=== PATIENT | female | born 1975 | race Caucasian/White ===

== ENCOUNTER 2022-10-31 23:33 | Emergency (ER) | payer MEDICARE, MEDICAID, SELFPAY ==
--- NOTE | 2022-10-31 23:54 | PC.NURSE ---
spoke with isiah about why the pt was refused and brought to . Pt was medicated for transport to [facility] and was sleepy. [facility] reports that pt was too sleepy to due the intake eval and that the dept was closed. pt arrived at 2345 approx. at . pt was arrousable but sleepy. pt is on a section 12 and was brought to the pod. isiah is refusing pt from [facility].
[2022-10-31 23:55] VITALS: BP 119/92; PULSE 87; RESP 17; TEMP 36.4; O2SAT 95; BMI 33.3
--- OUTSIDE RECORDS SUMMARY | 2022-11-01 00:20 | XMS_ITS | Continuity of Care Document ---
Author Name Unknown Organization [facility] Address [address] [place] [address]- Care Team Providers Care Analytical Laboratory Technician Name Role Phone Daily GARCIA, Leeann Beltran Primary Care Physician [phone] Encounter [facility] [place] Date(s): 06/18/20 - 06/25/20 [facility] [address] [place] [address]- Attending Physician: Brenda Bear DO Admitting Physician: Brenda Bear DO Allergies, Adverse Reactions, Alerts Substance Reaction Severity Status haloperidol Active hydrOXYzine Active tramadol Active Singulair Active Risperdal Active Imitrex Moderate Active Latex Active Seafood Throat, Hands, Feet swell Persistent Candice re Active Cymbalta Active ZyPREXA 1 Active 1Pt states it gives her a paradoxical reaction. Not true allergy Immunizations Given and Recorded Vaccine Date Status Refusal Reason influenza virus vaccine, inactivated 12/24/11 Give n influenza virus vaccine, inactivated 1 04/12/08 Gi jacobo pneumococcal 23-valent vaccine 12/16/08 Given tetanus-diphtheria toxoids (Td) 10/23/07 Given 1Result Comment: (l) [id number] (0) [id number] Medications albuterol CFC free 90 mcg/inh inhalation aerosol 180 mcg, 2, puffs, Inhalation, Every 4 hours, PRN, Refills 0, Maintenance, 12/13/18 10:52:33 EST, Inhaler Start Date: 12/13/18 Status: Ordered budesonide 1 mg/2 mL inhalation suspension 2 mL = 1 mg, Neb, 2 times a day, # 60 mL, 0 Refills, Maintenance, 10/08/19 15:39:00 EDT, Suspension Start Date: 10/08/19 Status: Ordered Depo-Provera = 150 mg, Intramuscular, 0 Refills, Maintenance, 02/15/19 11:49:00 EST Start Date: 02/15/19 Status: Ordered levocetirizine 5 mg oral tablet 1 tablet = 5 mg, By Mouth, Daily at bedtime, 0 Refills, Maintenance, 12/01/18 13:35:45 EDT Start Date: 12/01/18 Status: Ordered metoprolol 50 mg oral tablet 50 mg, 1, tablet, By Mouth, 2 times a day, # 180 tablet, Refills 0, Maintenance, 06/09/19 22:08:00 EDT Start Date: 06/09/19 Status: Ordered Omeprazole = 20 mg, By Mouth, 2 times a day, 0 Refills, Maintenance, 10/10/18 22:49:16 EDT Start Date: 10/10/18 Status: Ordered Zofran 8 mg oral tablet 1 tablet = 8 mg, By Mouth, Every 8 hours, PRN as needed for nausea/vomiting, 0 Refills, Maintenance, 06/09/19 22:10:00 EDT, Tablet Start Date: 06/09/19 Status: Ordered Zyrtec 10 mg oral tablet 1 tablet = 10 mg, By Mouth, Daily, # 30 tablet, 0 Refills, Maintenance, 07/29/14 15:14:46, Tablet Start Date: 07/29/14 Status: Ordered Problem List Condition Effective Dates Status Health Status Inform ant Anemia(Confirmed) Active Bipolar 1 disorder(Confirmed) 1 Active Dysuria(Confirmed) Active GERD (gastroesophageal reflu x disease)(Confirmed) Active Migraine aura without headache(Confirmed) Active Pituitary adenoma(Confirmed) Active PTSD (post-traumatic stress disorder)(Confirmed) Active Spina bifida, closed(Confirmed) Active UTI (urinary tract infection)(Confirmed) Active 1TOLERATES DROPERIDOL Vital Signs Most recent to oldest [Reference Range]: 1 Height 155 cm (06/18/20 2:34 PM) Weight 87.54 kg (06/18/20 2:34 PM) Body Mass Index [18.5-24.99] 36.44 *>HHI* (06/18/20 2:34 PM) Weight Obtained Via Patient/family state d (06/18/20 2:34 PM) Social History Social History Type Response Smoking Status Current every day frank pruitt entered on: 04/09/17 Sex
--- OUTSIDE RECORDS SUMMARY | 2022-11-01 00:20 | XMS_ITS | Continuity of Care Document ---
Author Name Unknown Organization [facility] Address [address] [place] [address] [address], [address] [place] [address]- Care Team Providers Care Stock Patcher Name Role Phone Daily GARCIA, Leeann Beltran Primary Care Physician [phone] Encounter [facility] [place] Date(s): 02/06/20 - 03/21/20 [facility] [address] [place] [address], [address] [place] [address]- Attending Physician: Alecia GARCIA, Gustavo Avendano Referring Physician: James Dominguez MD Allergies, Adverse Reactions, Alerts Substance Reaction Severity Status Singulair Active Latex Active haloperidol Active hydrOXYzine Active tramadol Active Risperdal Active Imitrex Moderate Active Seafood Throat, Hands, Feet swell Persistent Candice re Active Cymbalta Active ZyPREXA 1 Active 1Pt states it gives her a paradoxical reaction. Not true allergy Immunizations Given and Recorded Vaccine Date Status Refusal Reason influenza virus vaccine, inactivated 12/24/11 Give n influenza virus vaccine, inactivated 1 04/12/08 Gi jacobo pneumococcal 23-valent vaccine 12/16/08 Given tetanus-diphtheria toxoids (Td) 10/23/07 Given 1Result Comment: (l) [id number] (1) [id number] Medications albuterol CFC free 90 mcg/inh inhalation aerosol 180 mcg, 2, puffs, Inhalation, Every 4 hours, PRN, Refills 0, Maintenance, 12/13/18 10:52:33 EST, Inhaler Start Date: 12/13/18 Status: Ordered amphetamine-dextroamphetamine 15 mg oral capsule, extended release 1 capsule = 15 mg, By Mouth, Daily in AM, 0 Refills, Maintenance, 10/08/19 15:37:00 EDT, ER Capsule Start Date: 10/08/19 Status: Ordered atomoxetine 18 mg oral capsule 1 capsule = 18 mg, By Mouth, Daily in AM, 0 Refills, Maintenance, 12/01/18 0:38:40 EDT Start Date: 12/01/18 Status: Ordered budesonide 1 mg/2 mL inhalation suspension 2 mL = 1 mg, Neb, 2 times a day, # 60 mL, 0 Refills, Maintenance, 10/08/19 15:39:00 EDT, Suspension Start Date: 10/08/19 Status: Ordered buprenorphine 10 mcg/hr transdermal film, extended release 1 patch, Topically, apply to clean, dry, intact skin, every 7 days, 0 Refills, Maintenance, 10/08/19 14:54:00 EDT Start Date: 10/08/19 Stop Date: 10/15/19 Status: Ordered clobetasol 0.05% topical ointment 1 application, Topically, Daily, # 60 Gm, 0 Refills, Maintenance, 02/15/19 12:15:00 EST, Ointment, [facility] [address], 1 application Topically Daily, 164, cm, 02/15/19 11:42:00 EST, Height, 75, kg, 12/21/18 20:22:00 EST, Dry Weight Start Date: 02/15/19 Status: Ordered Depo-Provera = 150 mg, Intramuscular, 0 Refills, Maintenance, 02/15/19 11:49:00 EST Start Date: 02/15/19 Status: Ordered doxazosin 1 mg oral tablet 3 mg, 3, tablet, By Mouth, Daily, # 90 tablet, Refills 0, Tot. Refills 0, Maintenance, 12/13/18 10:53:39 EST, Route to Pharmacy Electronically, [id number], [facility] [address] Start Date: 12/13/18 Status: Ordered EpiPen 2-Jerome = 0.3 mg, Intramuscular, Once, 0 Refills, Maintenance, 03/16/19 9:00:00 EST Start Date: 03/16/19 Status: Ordered gabapentin 100 mg oral capsule 100 mg, 1, capsule, By Mouth, Daily, Refills 0, Maintenance, 10/08/19 15:38:00 EDT Start Date: 10/08/19 Status: Ordered levocetirizine 5 mg oral tablet 1 tablet = 5 mg, By Mouth, Daily at bedtime, 0 Refills, Maintenance, 12/01/18 13:35:45 EDT Start Date: 12/01/18 Status: Ordered lidocaine 5% topical ointment 1 application, Topically, 3 times a day, mix 50% with bacitracin., # 50 Gm, 0 Refills, Maintenance,02/15/19 12:13:00 EST, Ointment, [facility] [address], 1 application Topically 3 times a day,Instr:mix 50% with bacitracin., 164, cm, 02/15/19 11:42:... Start Date: 02/15/19 Status: Ordered magnesium oxide 500 mg oral tablet 1 tablet = 500 mg, By Mouth, Daily, 0 Refills, Maintenance, 10/05/17 15:20:57 EDT Start Date: 10/05/17 Status: Ordered metoprolol 50 mg oral tablet 50 mg, 1, tablet, By Mouth, 2 times a day, # 180 tablet, Refills 0, Maintenance, 06/09/19 22:08:00 EDT Start Date: 06/09/19 Status: Ordered mirtazapine 15 mg oral tablet 1 tablet = 15 mg, By Mouth, Daily at supper, 0 Refills, Maintenance, 10/08/19 14:52:00 EDT Start Date: 10/08/19 Status: Ordered Nicorette 4 mg oral transmucosal gum 1 piece, Every 2 hours, 0 Refills, Maintenance, 10/05/17 15:21:20 EDT Start Date: 10/05/17 Status: Ordered Omeprazole = 20 mg, By Mouth, 2 times a day, 0 Refills, Maintenance, 10/10/18 22:49:16 EDT Start Date: 10/10/18 Status: Ordered oxyCODONE 5 mg oral capsule 1 capsule = 5 mg, By Mouth, 3 times a day, 0 Refills, Maintenance, 11/30/18 17:18:40 EDT, Partial fill upon patient request Start Date: 11/30/18 Status: Ordered salicylic acid 2% topical gel See Instructions, Mix a small amount in clobetasol gradually increasing up to 50%. Do not apply to open lesions., # 15 Gm, 0 Refills, Maintenance, 02/15/19 12:15:00 EST, [facility] [address], Mix asmall amount in clobetasol gradually increasing up... Start Date: 02/15/19 Status: Ordered Topamax 100 mg oral tablet 1 tablet = 100 mg, By Mouth, Daily, 0 Refills, Maintenance, 12/01/18 13:36:35 EDT Start Date: 12/01/18 Status: Ordered Vitamin B2 100 mg oral tablet 4 tablets, By Mouth, Daily, 0 Refills, Maintenance, 06/09/19 22:11:00 EDT Start Date: 06/09/19 Status: Ordered Zofran 8 mg oral tablet [...] UTI (urinary tract infection)(Confirmed) Active 1TOLERATES DROPERIDOL Social History Social History Type Response Smoking Status Current every day frank pruitt entered on: 04/09/17 Sex
--- OUTSIDE RECORDS SUMMARY | 2022-11-01 00:20 | XMS_ITS | Continuity of Care Document ---
Author Name Unknown Organization [facility] Address [address] [place] [address]- Care Team Providers Care Plunger Machine Operator Name Role Phone Daily GARCIA, Leeann Beltran Primary Care Physician Encounter [facility] [place] Date(s): 03/16/19 - 03/23/[address] [address]- Attending Physician: Brenda Bear DO Admitting Physician: Brenda Bear DO Allergies, Adverse Reactions, Alerts Substance Reaction Severity Status haloperidol Active hydrOXYzine Active tramadol Active Singulair Active Risperdal Active Imitrex Moderate Active Latex Active Seafood Throat, Hands, Feet swell Persistent Candice re Active Cymbalta Active ZyPREXA Active Immunizations Given and Recorded Vaccine Date Status Refusal Reason influenza virus vaccine, inactivated 12/24/11 Give n influenza virus vaccine, inactivated 1 04/12/08 Gi jacobo pneumococcal 23-valent vaccine 12/16/08 Given tetanus-diphtheria toxoids (Td) 10/23/07 Given 1Result Comment: (l) [id number] Medications albuterol CFC free 90 mcg/inh inhalation aerosol 180 mcg, 2, puffs, Inhalation, Every 4 hours, PRN, Refills 0, Maintenance, 12/13/18 10:52:33 EST, Inhaler Start Date: 12/13/18 Status: Ordered atomoxetine 18 mg oral capsule 1 capsule = 18 mg, By Mouth, Daily in AM, 0 Refills, Maintenance, 12/01/18 0:38:40 EDT Start Date: 12/01/18 Status: Ordered clobetasol 0.05% topical ointment 1 application, Topically, Daily, # 60 Gm, 0 Refills, Maintenance, 02/15/19 12:15:00 EST, Ointment, [facility] [address], 1 application Topically Daily, 164, cm, 02/15/19 11:42:00 EST, Height, 75, kg, 12/21/18 20:22:00 EST, Dry Weight Start Date: 02/15/19 Status: Ordered Depo-Provera = 400 mg, Intramuscular, 0 Refills, Maintenance, 02/15/19 11:49:00 EST Start Date: 02/15/19 Status: Ordered doxazosin 1 mg oral tablet 3 mg, 3, tablet, By Mouth, Daily, # 90 tablet, Refills 0, Tot. Refills 0, Maintenance, 12/13/18 10:53:39 EST, Route to Pharmacy Electronically, [id number], [facility] [address] Start Date: 12/13/18 Status: Ordered EpiPen 2-Jerome = 0.3 mg, Intramuscular, Once, 0 Refills, Maintenance, 03/16/19 9:00:00 EST Start Date: 03/16/19 Status: Ordered levocetirizine 5 mg oral tablet [...] EDT Start Date: 10/05/17 Status: Ordered metoprolol 25 mg oral tablet 25 mg, 1, tablet, By Mouth, 2 times a day, # 60 tablet, Refills 0, Tot. Refills 0, Maintenance, 12/13/18 10:56:49 EST, Route to Pharmacy Electronically, [id number], [facility] [address] Start Date: 12/13/18 Status: Ordered Misc Rx Refills 0, Maintenance, 03/16/19 9:04:00 EST, Compound Start Date: 03/16/19 Status: Ordered Nicorette 4 mg oral transmucosal gum 1 piece, Every 2 hours, 0 Refills, Maintenance, 10/05/17 15:21:20 EDT Start Date: 10/05/17 Status: Ordered Omeprazole = 40 mg, By Mouth, Daily, 0 Refills, Maintenance, 10/10/18 22:49:16 EDT Start [...] Gm, 0 Refills, Maintenance, 02/15/19 12:15:00 EST, [facility] [address], Mix asmall amount in clobetasol gradually increasing up... Start Date: 02/15/19 Status: Ordered Topamax 100 mg oral tablet 1 tablet = 100 mg, By Mouth, Daily, Dose is 1.5 tabs, 0 Refills, Maintenance, 12/01/18 13:36:35 EDT Start Date: 12/01/18 Status: Ordered triamcinolone 0.5% topical ointment 1 application, Topically, 3 times a day, # 430 Gm, 0 Refills, Maintenance, 02/21/19 12:45:00 EST, [facility], [facility] [address], 1 application Topically 3 times a day, 164, cm, 02/15/19 11:42:00 EST, Height, 75, kg, 12/21/18 20:22:00 EST, Dry Weight Start Date: 02/21/19 Status: Ordered Zyrtec 10 mg oral tablet 1 tablet = 10 mg, By Mouth, Daily, # 30 tablet, 0 Refills, Maintenance, 07/29/14 15:14:46, Tablet Start Date: 07/29/14 Status: Ordered Problem List Condition Effective Dates Status Health Status Inform ant Anemia(Confirmed) Active Bipolar 1 disorder(Confirmed) Active Dysuria(Confirmed) Active GERD (gastroesophageal reflu x disease)(Confirmed) Active Migraine aura without headache(Confirmed) Active Pituitary adenoma(Confirmed) Active PTSD (post-traumatic stress disorder)(Confirmed) Active Spina bifida, closed(Confirmed) Active UTI (urinary tract infection)(Confirmed) Active Vital Signs Most recent to oldest [Reference Range]: 1 Height 164 cm (03/16/19 8:59 AM) Blood Pressure [90-138/55-84 mm Hg] 120/ 76mm Hg (03/16/19 8:59 AM) Weight Obtained Via [facility] (03/16/19 8:59 AM) Social History Social History Type Response Smoking Status Current every day frank pruitt entered on: 04/09/17 Sex
--- OUTSIDE RECORDS SUMMARY | 2022-11-01 00:20 | XMS_ITS | Continuity of Care Document ---
Author Name Unknown Organization [facility] Address [address] [place] [address]- Care Team Providers Care Link Fabric Machine Operator Name Role Phone Daily GARCIA, Leeann Beltran Primary Care Physician Encounter [facility] [place] Date(s): 03/15/20 - 04/14/20 [facility] [address] [place] [address]- Allergies, Adverse Reactions, Alerts Substance Reaction Severity [...] toxoids (Td) 10/23/07 Given 1Result Comment: (l) [id number] (0) [id number] Medications albuterol CFC free 90 mcg/inh inhalation [...] 0 Refills, Maintenance, 02/15/19 12:15:00 EST, Ointment, [facility] [address] , 1 application Topically Daily, 164, cm, 02/15/19 [...] 12/13/18 10:53:39 EST, Route to Pharmacy Electronically, [id number], [facility] [address] Start Date: 12/13/18 Status: Ordered EpiPen 2-Jerome [...]
--- OUTSIDE RECORDS SUMMARY | 2022-11-01 00:20 | XMS_ITS | Continuity of Care Document ---
Author Name Unknown Organization [facility] Address [address] [place] [address]- Care Team Providers Care Carving Machine Operator Name Role Phone Leeann Ambrosio MD Primary Care Physician [place] [facility] [place]14[place] - 06/17/[address] [address]- Discharge Disposition: A-D/C Home Attending Physician: Brain Urban MD Admitting Physician: Brain Urban MD Referring Physician: Not on Staff, Referring MD Allergies, Adverse Reactions, Alerts Substance Reaction Severity Status haloperidol Active diphenhydrAMINE Active hydrOXYzine Active Strattera Active Cymbalta Active tramadol Active Risperdal Active trazodone-like drugs Active Singulair Active Imitrex Moderate Active Latex Active Seafood Throat, Hands, Feet swell Persistent Candice re Active Hand Packager 1 Active ZyPREXA 2 Active 1REACTION - FULL BLOWN ASTHMA ATTACK 2Pt states it gives her a paradoxical reaction. Not true allergy Immunizations Given and Recorded Vaccine Date Status Refusal Reason influenza virus vaccine, inactivated 12/24/11 Give n influenza virus vaccine, inactivated 1 04/12/08 Gi jacobo pneumococcal 23-valent vaccine 12/16/08 Given tetanus-diphtheria toxoids (Td) 10/23/07 Given 1Result Comment: (l) [id number] Medications albuterol CFC free 90 mcg/inh inhalation aerosol 180 mcg, 2, puffs, Inhalation, Every 4 hours, PRN, Refills 0, Maintenance, 12/13/18 10:52:33 EST, Inhaler Start Date: 12/13/18 Status: Ordered budesonide 1 mg/2 mL inhalation suspension 2 mL = 1 mg, Neb, 2 times a day, # 60 mL, 0 Refills, Maintenance, 10/08/19 15:39:00 EDT, Suspension Start Date: 10/08/19 Status: Ordered Colace sodium 100 mg oral capsule 100 mg, 1, capsule, By Mouth, 2 times a day, PRN, # 20 capsule, Refills 2, Tot. Refills 2, Maintenance, for constipation, 07/12/20 9:30:00 EDT, Route to Pharmacy Electronically, [facility] [address], Partial fill upon patient request if the prescrip... Start Date: 07/12/20 Status: Ordered Fluconazole 150 mg, By Mouth, Every 48 hours, tablet, Maintenance, 07/30/20 4:43:00 EDT Start Date: 07/30/20 Status: Ordered levocetirizine 5 mg oral tablet 1 tablet = 5 mg, By Mouth, Daily at bedtime, 0 Refills, Maintenance, 12/01/18 13:35:45 EDT Start Date: 12/01/18 Status: Ordered metoprolol 50 mg oral tablet 50 mg, 1, tablet, By Mouth, 2 times a day, # 180 tablet, Refills 0, Maintenance, 06/09/19 22:08:00 EDT Start Date: 06/09/19 Status: Ordered Omeprazole 40, By Mouth, Daily, 0 Refills, Maintenance, 10/10/18 22:49:16 EDT Start Date: 10/10/18 Status: Ordered oxyCODONE 5 mg oral tablet 10 mg, 2, tablet, By Mouth, Every 6 hours, PRN, Refills 0, Tot. Refills 0, Maintenance, as needed for pain, 07/30/20 6:36:00 EDT, Partial fill upon patient request if the prescription is for a schedule II opioid drug. Start Date: 07/30/20 Status: Ordered Topiramate = 100 mg, By Mouth, Daily, 1.5 tabs, 0 Refills, Maintenance, 07/30/20 4:42:00 EDT, Partial fill upon patient request if the prescription is for a schedule II opioid drug. Start Date: 07/30/20 Status: Ordered Zofran 8 mg oral tablet [...] disease)(Confirmed) Active Migraine aura without headache(Confirmed) Active Obese class I(Confirmed) Active Pituitary adenoma(Confirmed) Active PTSD (post-traumatic stress disorder)(Confirmed) Active Spina bifida, closed(Confirmed) Active UTI (urinary tract infection)(Confirmed) Active 1TOLERATES DROPERIDOL Results Radiology Reports * Exam Date Time Procedure Performing Provider Status 06/14/21 8:36 PM Chest Portable Lulu Delong; Auth (Ve rified) Notes: (Chest Portable) Reason For Exam: Shortness of Breath RESULT: Chest Portable Chest Portable Hx of Present Illness: states she does not want to be alive anymore; Reason: Shortness of Breath; Clinical Question(s): CHF COMPARISON: 09/17/2017 FINDINGS: LINES AND TUBES: None. LUNGS AND PLEURA: Clear lungs. Normal pulmonary vascularity. No pleural effusion. No pneumothorax. HEART, MEDIASTINUM AND ROBERTO: Heart is normal in size. Normal upper mediastinal and hilar contour. BONES AND SOFT TISSUES: Old right-sided rib fractures. IMPRESSION: No acute abnormality. WSN: [id number] Ordering Physician: Timothy Johnson Dictated By: Joon Samuels MD Dictated Date/Time: 06/14/21 10:08 p Reviewed By: Joon Samuels MD Signed By: Joon Samuels MD Signed Date/Time: 06/14/21 10:08 pm Transcribed By: BARB Transcribed Date/Time: 06/14/21 10:07 pm Vital Signs Most recent to oldest [Reference Range]: 1 2 3 Height 155 cm (06/17/21 4:50 AM) 155 cm (06/14/21 8:12 PM) Weight 82 kg (06/17/21 4:50 AM) 82 kg (06/14/21 8:12 PM) Oxygen Saturation [94-100 %] 97 % (06/17/21 4:50 AM) 98 % (06/16/21 9:20 AM) 97 % (06/16/21 4:00 AM) Pulse Rate [55-90 bpm] 80 bpm (06/17/21 4:50 AM) 89 bpm (06/16/21 9:20 AM) 84 bpm (06/16/21 4:00 AM) Body Mass Index [18.5-24.99] 34.13 *>HHI* (06/17/21 4:50 AM) Blood Pressure [90-138/55-84 mm Hg] 120/82mm Hg (06/17/21 4:50 AM) 129/78mm Hg (06/16/21 9:20 AM) 142/96mm Hg *H* (06/16/21 4:00 AM) Respiratory Rate [16-30 br/min] 19 br/min (06/17/21 9:07 AM) 18 br/min (06/17/21 4:50 AM) 32 br/min 1 *H* (06/16/21 11:00 PM) Temperature [96.8-100.4 DegF] 98.0 DegF (06/17/21 4:50 AM) 98.2 DegF (06/16/21 9:20 AM) 98.8 DegF (06/16/21 4:00 AM) Mode of Delivery (Oxygen) Room air (06/17/21 4:50 AM) Room air (06/16/21 9:20 AM) Room air (06/16/21 4:00 AM) Blood pressure sites Arm, right (06/17/21 4:50 AM) Arm, left (06/14/21 8:12 PM) Temperature Route Temporal (06/17/21 4:50 AM) Temporal (06/16/21 9:20 AM) Temporal (06/15/21 5:49 PM) Dry Weight 82 kg (06/17/21 4:50 AM) 82 kg (06/14/21 8:12 PM) 1Result Comment: while sleeping Social History Social History Type Response Smoking Status Current every day frank pruitt entered on: 04/09/17 Sex
--- OUTSIDE RECORDS SUMMARY | 2022-11-01 00:20 | XMS_ITS | Continuity of Care Document ---
Author Name Unknown Organization [facility] Address [address] [place] [address]- Care Team Providers Care Bullard Machine Operator Name Role Phone Daily GARCIA, Leeann Beltran Primary Care Physician [phone] [place] [facility] [place] 08/10/20 [facility] [address] [place] [address]- Allergies, Adverse Reactions, Alerts Substance Reaction Severity Status haloperidol Active diphenhydrAMINE Active hydrOXYzine Active tramadol Active trazodone-like drugs Active Singulair Active Risperdal Active Imitrex Moderate Active Latex Active Seafood Throat, Hands, Feet swell Persistent Candice re Active Cymbalta Active Hand Photographer Portrait 1 Active ZyPREXA 2 Active 1REACTION - FULL BLOWN ASTHMA ATTACK 2Pt states it gives her a paradoxical reaction. Not true allergy Immunizations Given and Recorded Vaccine Date Status Refusal Reason influenza virus vaccine, inactivated 12/24/11 Give n influenza virus vaccine, inactivated 1 04/12/08 Gi jacobo pneumococcal 23-valent vaccine 12/16/08 Given tetanus-diphtheria toxoids (Td) 10/23/07 Given 1Result Comment: (l) [id number] (0) [id number] Medications albuterol CFC free 90 mcg/inh inhalation [...] 07/12/20 9:30:00 EDT, Route to Pharmacy Electronically, [facility] [address], Partial fill upon [...]
--- OUTSIDE RECORDS SUMMARY | 2022-11-01 00:20 | XMS_ITS | Continuity of Care Document ---
Author Name Unknown Organization [facility] Address [address] [place] [address] [address], [address] [place] [address]- Care Team Providers Care Hotshot Superintendent Name Role Phone Daily GARCIA, Leeann Beltran Primary Care Physician Encounter [facility] [place] Date(s): 02/06/20 - 03/07/20 [facility] [address] [place] [address], [address] [place] [address]- Allergies, Adverse Reactions, Alerts Substance Reaction Severity [...] toxoids (Td) 10/23/07 Given 1Result Comment: (l) [id number] Medications albuterol CFC free 90 mcg/inh inhalation [...] 0 Refills, Maintenance, 02/15/19 12:15:00 EST, Ointment, [facility] [address] , 1 application [...] 12/13/18 10:53:39 EST, Route to Pharmacy Electronically, [id number], [facility] [address] Start Date: [...] 14:52:00 EDT Start Date: 10/08/19 Status: Ordered Misc Rx Refills 0, Maintenance, 03/16/19 9:04:00 EST, Compound Start Date: 03/16/19 Status: Ordered Miscellaneous Rx 150, 0 Refills, Maintenance, 06/09/19 22:16:00 EDT Start Date: 06/09/19 Status: Ordered Nicorette 4 mg oral transmucosal [...] 0 Refills, Maintenance, 02/21/19 12:45:00 EST, Ointment, [facility] [address], 1 application Topically 3 times a day, 164, cm, 02/15/19 11:42:00 EST, Height, 75, kg, 12/21/18 20:22:00 EST, Dry Weight Start Date: 02/21/19 Status: Ordered Vitamin B2 100 mg oral [...] closed(Confirmed) Active UTI (urinary tract infection)(Confirmed) Active Social History Social History Type Response Smoking Status Current every day frank pruitt entered on: 04/09/17 Sex
--- OUTSIDE RECORDS SUMMARY | 2022-11-01 00:20 | XMS_ITS | Continuity of Care Document ---
Author Name Unknown Organization [facility] Address [address] [place] [address]- Care Team Providers Care [employer] Name Role Phone Leeann Ambrosio MD Primary Care Physician [phone] [place] [facility] [place] - 10/30/[address] [address]- Discharge Disposition: A-D/C Home Attending Physician: Bj Cooney MD Admitting Physician: Bj Cooney MD Referring Physician: Not on Staff, Referring MD Allergies, Adverse Reactions, Alerts Substance Reaction Severity Status ketamine Active hydrOXYzine Active tramadol Active trazodone-like drugs Active Singulair Active Risperdal Active Imitrex Moderate Active Haldol akathesia Active Latex Active Seafood Throat, Hands, Feet swell Persistent Candice re Active Strattera Active Cymbalta Active 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 Not true allergy Immunizations Given and Recorded Vaccine Date Status Refusal Reason influenza virus vaccine, inactivated 12/24/11 Give n influenza virus vaccine, inactivated 1 04/12/08 Gi jacobo pneumococcal 23-valent vaccine 12/16/08 Given tetanus-diphtheria toxoids (Td) 10/23/07 Given 1Result Comment: (l) [id number] (3) [id number] Medications carbidopa-levodopa 25 mg-100 mg oral tablet 1 tablet, 2 times a day, TAKE 1 TABLET BY MOUTH TWICE A DAY Start Date: 10/03/22 Status: Ordered Flovent HFA 220 mcg/inh inhalation aerosol 1 puffs, Inhalation, 2 times a day, # 12 Gm, 0 Refills, Maintenance, 10/03/22 19:49:00 EDT, Aerosol, Partial fill upon patient request if the prescription is for a schedule II opioid drug. Start Date: 10/03/22 Status: Ordered Omeprazole 40, By Mouth, 2 times a day, 0 Refills, Maintenance, 10/10/18 22:49:16 EDT Start Date: 10/10/18 Status: Ordered ondansetron 8 mg oral tablet, disintegrating dissolve 1 tablet ON TONGUE every 8 hours if needed Start Date: 12/25/21 Status: Ordered sucralfate 1 gm oral tablet 1 Gm, 1, tablet, By Mouth, 4 times a day, # 120 tablet, Refills 0, Maintenance, 10/03/22 19:49:00 EDT, Partial fill upon patient request if the prescription is for a schedule II opioid drug. Start Date: 10/03/22 Status: Ordered Zyrtec 10 mg oral tablet 1 tablet = 10 mg, By Mouth, Daily, # 30 tablet, 0 Refills, Maintenance, 07/29/14 15:14:46, Tablet Start Date: 07/29/14 Status: Ordered Problem List Condition Confirmation Course Effective Dates Status Health St atus Informant Anemia Confirmed Active Bipolar 1 disorder 1 Confirmed Active COVID-19 2 Confirmed 03/02/22 Active Dysuria Confirmed Active GERD (gastroesophageal reflux disease) Confirmed Active Migraine aura without headache Confirmed Active Pituitary adenoma Confirmed Active PTSD (post-traumatic stress disorder) Confirmed Active Severe obesity Confirmed Active Spina bifida, closed Confirmed Active UTI (urinary tract infection) Confirmed Active 1TOLERATES DROPERIDOL 2Problem added by Discern Expert Vital Signs Most recent to oldest [Reference Range]: 1 Height 155 cm (10/30/22 8:58 PM) Weight 79 kg (10/30/22 8:58 PM) Oxygen Saturation [94-100 %] 97 % (10/30/22 8:58 PM) Pulse Rate [55-90 bpm] 120 bpm *H* (10/30/22 8:58 PM) Blood Pressure [90-138/55-84 mm Hg] 141/ 96mm Hg *H* (10/30/22 8:58 PM) Respiratory Rate [16-30 br/min] 22 br/mi n (10/30/22 8:58 PM) Temperature [96.8-100.4 DegF] 99.2 DegF (10/30/22 8:58 PM) Mode of Delivery (Oxygen) Room air (10/30/22 8:58 PM) Blood pressure sites Arm, right (10/30/22 8:58 PM) Temperature Route Temporal (10/30/22 8:58 PM) Dry Weight 79 kg (10/30/22 8:58 PM) Social History Social History Type Response Smoking Status Current every day frank pruitt entered on: 04/09/17 Sex Note * Bj Cooney MD: PERFORM, SIGN, VERIFY Event Display: Patient Education Handout Authored Date: * Bj Cooney MD: PERFORM Event Display: Patient Education Leaflets Authored Date: Anxiety??Reaction ?? [id number] Anxiety??Reaction Anxiety is the feeling we all get when we think something bad might happen. It is a normal responseto stress. It most often causes only a mild reaction. But it can interfere with daily life when anxiety is more severe. In some cases, you may not know what you???re anxious about. Anxiety seems to have both mental and physical triggers. You may have stress from home and family. Or work and social relationships. Anxiety tends to run in families. This may mean it???s linked to genes. During an anxiety reaction, you may feel: ??? Helpless ??? Nervous ??? Depressed ??? Grouchy Your body may show signs of anxiety in many ways. You may have: ??? Dry mouth ??? Shakiness ??? Dizziness ??? Weakness ??? Trouble breathing ??? Fast breathing ???Chest pressure ??? Sweating ??? Headache ??? Nausea ??? Diarrhea ??? Tiredness ??? Inability to sleep ??? Sexual problems Home care Try to find those things that set off anxiety in your life. They may not be obvious. They may include: ??? Daily hassles of life. This can include traffic jams, missed appointments, or car troubles. ???Major life changes. This means both good changes, such as a new baby or job promotion. This can also mean tough life changes, such as loss of a job or loss of a loved one. ??? Overload. This means feeling that you have too many responsibilities. And that you can't take care of all of them. ??? Feeling helpless. You may feel you don???t have any control or choices. You may feel that your problems can't be solved. Notice how your body reacts to stress. This will help you take action before the stress sets off anxiety. When you can, make changes to reduce the sources of your stress. But stress in life often can't be prevented. It is important to learn how to manage stress to reduce anxiety. There are many proven methods that will reduce your anxiety. These include: ??? Exercise ??? Good nutrition ??? Getting enough sleep ??? Relaxation methods ??? Breathing exercises ??? Visualization ??? Biofeedback ??? Meditation ??? Counseling ??? Medicine For more information about this, talk with your healthcare provider. Or check online or at your local library or bookstore. You'll find many books and audiobooks on this subject. ?? Follow-up care If you feel your anxiety is not getting better with self-help, call your healthcare provider. Or make an appointment with a counselor. You may need short-term counseling or medicine to help you manage anxiety. ?? Call 911 Call 911 if any of the following occur: ??? Trouble breathing ??? Confusion ??? Drowsiness or trouble waking up ??? Fainting ??? Rapid heart rate ??? Seizure ??? New chest pain that becomes more severe, lasts longer, or spreads into your shoulder, arm, neck, jaw, or back Call or text [phone] if you have thoughts of harming yourself or others. You will be connected to trained crisis counselors at the National Suicide Prevention Lifeline. An online chat option is also available at www.suicidepreventionlifeline.org. You can also call Lifeline at 117-380-XBNB (769-721-4449). Lifeline is free and available 01/09. ?? When to get medical advice Call your healthcare provider right away if any of the following occur: ??? Symptoms that don't improve or get worse, such as feelings of hopelessness or overwhelming sadness ??? Severe headache not eased by rest and mild pain medicine The National Suicide Prevention Lifeline is available at 002-392-LFII (531-602-7361). The Lifeline is available 01/09 and provides free and confidential support. The [employer] also has an online chat at www.suicidepreventionlifeline.org. ?? Last Reviewed Date: 2021 ?? 0189-2780 The [employer]. All rights reserved. This information is not intended as a substitute for professional medical care. Always follow your healthcare professional's instructions. ?? * Bj Cooney MD: PERFORM Event Display: Patient Education Leaflets Authored Date: [id number] Laceration, All Closures ?? [id number] Laceration, All Closures A??laceration is a cut through the skin. This will usually need stitches or megan if it's deep. Minor cuts may be treated with a surgical tape closure or??skin glue. Home care ??? Your healthcare provider may prescribe an antibiotic. This is to help prevent infection. Followall instructions for taking this medicine. Take the medicine every day until it's gone, or you are told to stop. You should not have any left over. ??? The provider may prescribe medicines for pain. If no pain medicines were prescribed, you can use bybd-ptt-weyqdtf pain medicines. Follow instructions for taking any pain medicines. Talk with your provider before using these medicines if you have chronic liver or kidney disease, or ever had a stomach ulcer or digestive bleeding. ??? Follow the provider???s instructions on how to care for the cut. ??? Keep the wound clean and dry. Don't get the wound wet until you are told it's OK to do so.??If the area gets wet, gently pat it dry with a cleancloth. Replace the wet bandage with a dry one. ??? If a bandage was applied and it becomes wet or dirty, replace it. Otherwise, leave it in place for the first 24 hours. ??? Caring for stitches or megan: Once you no longer need to keep them dry, clean the wound daily. First remove the bandage. Then wash the area gently with soap and clean running water, or as directed by the??provider. Use a wet cotton swab to loosen and remove any blood or crust that forms. After cleaning, apply a thin layerof antibiotic ointment if advised. Then put on a new bandage unless you are told not to. ??? Caringfor skin glue: Don???t apply liquid, ointment, or cream on the wound while the glue is in place.??Don't do activities that cause heavy sweating. Protect the wound from sunlight.??Don't scratch, rub, or pick at the adhesive film. Don't place tape directly over the film.??The glue should peel off naturally in 5 to 10 days.? Caring for surgical tape: Keep the area dry. If it gets wet, blot it dry with a clean towel. Surgical tape often falls off in 7 to 10 days. If it has not fallen off after10 days, you can take it off yourself. Put mineral oil or petroleum jelly on a cotton ball and gently rub the tape until it's removed. ??? Once you can get the wound wet, you may shower as normal. Don't soak the wound in water (no tub baths or swimming). ??? Even with correct treatment, a wound infection may sometimes occur. Check the wound daily for signs of infection listed below. Scalp wounds Follow your healthcare provider's specific instructions on showering. During the first 2 days, you may carefully rinse your hair in the shower to remove blood, glass, or dirt particles. After 2 days,you may shower and shampoo your hair normally. Don't soak your scalp in the tub or go swimming until the stitches or megan have been removed. Talk with your healthcare provider before applying any antibiotic ointment to the wound. Mouth wounds Eat soft foods to reduce pain. If the cut is inside your mouth, clean by rinsing after each meal and at bedtime with a mixture of equal parts water and hydrogen peroxide (don't swallow!). Or you can use a cotton swab to directly apply hydrogen peroxide onto the cut. You may also be prescribed a chlorhexidine solution to rinse with. Mouth wounds can be painful when eating. You may use an iano-uto-qifnbmi local numbing solution for pain relief. If this isn't available, you may use any numbing solution intended for teething babies. You may apply this directly to the sores with a cotton-tip swab or with your clean finger. ?? Follow-up care Follow up with your healthcare provider as advised.??Ask your provider how long stitches should be left in place. Be sure to return for stitch removal as directed. If dissolving stitches were used inthe mouth, these should fall out or dissolve without the need for removal. If tape closures were used, remove them yourself when your provider advises if they haven't fallen off on their own. If??skin glue was used, the film will wear off by itself. Generally, you should keep healing wounds out of direct sunlight for the first couple of months to try to lessen scarring. ?? When to get medical advice Call your healthcare provider right away??if any of these occur: ??? Signs of infection, including increasing pain in the wound, increasing wound redness or swelling, or pus or bad odor coming from the wound ??? Fever of??100.4??F (38.??C)??or higher, or as advised by your provider ??? Chills ??? Stitches or megan come apart or fall out, or surgical tape falls off before 7 days and the wound appears to be reopening ??? Wound edges reopen ??? Wound changes colors ??? Numbness around the wound after any numbing medicine should have worn off ??? Decreased movement around the injured area ?? Call 911 Call 911??if you can't control the wound bleeding??with direct pressure. ?? Last Reviewed Date: 2021 ?? 0613-4975 [employer]. All rights reserved. This information is not intended as a substitute for professional medical care. Always follow your healthcare professional's instructions. ?? Patient Care team information Care Team Personnel Name: Leeann Ambrosio MD Position: [facility] Physician - Primary Care Member Role: PCP Address: Address: [address] [place] [address] Name: Geovanna Vu MD Position: [facility] MEDICAL RECEPTIONIST MEDICAL ASSISTANT MD Member Role: [employer] MEDICAL RECEPTIONIST MEDICAL ASSISTANT Physician Address: Address: [address] [place] [address] Name: Saige Lacey RN Position: [facility] RN Member Role: Primary Care Nurse Name: Brenda Bear DO Position: [facility] MEDICAL RECEPTIONIST MEDICAL ASSISTANT MD Member Role: [employer] MEDICAL RECEPTIONIST MEDICAL ASSISTANT Physician Address: Address: [address] [place] [address]- Name: Bj Cooney MD Position: [facility] ED Medicine MD Member Role: Admitting Physician Address: Address: [address] [place] [address]- Name: More Juan RN Position: [facility] ED RN W/OE and Tasks Member Role: Patient Care Provider Care Team Related Persons Name: ANJU PADGETT Address: home [address] [place] [address] Name: SHIRLEY HU Address: home [address] [place] [address]
--- OUTSIDE RECORDS SUMMARY | 2022-11-01 00:21 | XMS_ITS | Continuity of Care Document ---
Author Name Unknown Organization [facility] Address [address] [place] [address]- Care Team Providers Care Clinic Lead Name Role Phone Leeann Ambrosio MD Primary Care Physician Encounter [facility] [place] Date(s): 09/24/21 - 09/24/[address] [address]- Encounter Diagnosis Depression(Final) - 09/24/21 Anxiety(Final) - 09/24/21 Discharge Disposition: A-D/C Home Attending Physician: Eugene Xavier DO Admitting Physician: Eugene Xavier DO Referring Physician: Not on Staff, Referring MD Allergies, Adverse Reactions, Alerts Substance Reaction Severity Status trazodone-like drugs Active Seafood Throat, Hands, Feet swell Persistent Candice re Active diphenhydrAMINE Active hydrOXYzine Active tramadol Active Risperdal Active Singulair Active Imitrex Moderate Active Latex Active Cymbalta Active 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 Not true allergy Immunizations Given and Recorded Vaccine Date Status Refusal Reason influenza virus vaccine, inactivated 12/24/11 Give n influenza virus vaccine, inactivated 1 04/12/08 Gi jacobo pneumococcal 23-valent vaccine 12/16/08 Given tetanus-diphtheria toxoids (Td) 10/23/07 Given 1Result Comment: (l) [id number] (3) [id number] Medications albuterol CFC free 90 mcg/inh inhalation aerosol 180 mcg, 2, puffs, Inhalation, Every 4 hours, PRN, Refills 0, Maintenance, 12/13/18 10:52:33 EST, Inhaler Start Date: 12/13/18 Status: Ordered atomoxetine 10 mg oral capsule 1 capsule = 10 mg, By Mouth, Daily in AM, # 30 capsule, 0 Refills, Maintenance, 07/06/21 9:05:00 EDT, Capsule, Partial fill upon patient request if the prescription is for a schedule II opioid drug. Start Date: 07/06/21 Status: Ordered benztropine 1 mg oral tablet 1 mg, 1, tablet, By Mouth, 2 times a day, # 10 tablet, Refills 1, Tot. Refills 1, Maintenance, 07/11/21 10:01:00 EDT, Route to Pharmacy Electronically, [facility] - [address], Partial fill upon patient request if the prescription is for a schedule II... Start Date: 07/11/21 Stop Date: 07/21/21 Status: Ordered budesonide 1 mg/2 mL inhalation suspension 2 mL = 1 mg, Neb, 2 times a day, # 60 mL, 0 Refills, Maintenance, 10/08/19 15:39:00 EDT, Suspension Start Date: 10/08/19 Status: Ordered carbidopa-levodopa 25 mg-100 mg oral tablet See Instructions, 1/2 tablet by mouth every morning, then 1 tablet daily, 0 Refills, Maintenance, 07/06/21 9:06:00 EDT, Partial fill upon patient request if the prescription is for a schedule II opioid drug. Start Date: 07/06/21 Status: Ordered Colace sodium 100 mg oral capsule 100 mg, 1, capsule, By Mouth, 2 times a day, PRN, # 20 capsule, Refills 2, Tot. Refills 2, Maintenance, for constipation, 07/12/20 9:30:00 EDT, Route to Pharmacy Electronically, [facility] - [address], Partial fill upon patient request if the prescrip... Start Date: 07/12/20 Status: Ordered haloperidol 5 mg oral tablet 5 mg, 1, tablet, By Mouth, 2 times a day, PRN, # 10 tablet, Refills 1, Tot. Refills 1, Maintenance,Agitation, 07/11/21 10:00:00 EDT, Route to Pharmacy Electronically, [facility] - [address], Partialfill upon patient request if the prescription is fo... Start Date: 07/11/21 Stop Date: 07/21/21 Status: Ordered Omeprazole 40, By Mouth, 2 [...] recent to oldest [Reference Range]: 1 2 Height 155 cm (09/24/21 10:13 PM) 155 cm (09/24/21 10:11 PM) Weight 83.8 kg (09/24/21 10:13 PM) 83.8 kg (09/24/21 10:11 PM) Oxygen Saturation [94-100 %] 97 % (09/24/21 10:11 PM) Pulse Rate [55-90 bpm] 98 bpm *H* (09/24/21 10:11 PM) Body Mass Index [18.5-24.99] 34.88 *>HHI* (09/24/21 10:11 PM) Blood Pressure [90-138/55-84 mm Hg] 133/ 94mm Hg (09/24/21 10:11 PM) Respiratory Rate [16-30 br/min] 20 br/mi n (09/24/21 10:11 PM) Temperature [96.8-100.4 DegF] 97.2 DegF (09/24/21 10:11 PM) Blood pressure sites Arm, right (09/24/21 10:11 PM) Temperature Route Temporal (09/24/21 10:11 PM) Dry Weight 83.8 kg (09/24/21 10:13 PM) 83.8 kg (09/24/21 10:11 PM) Social History Social History Type Response Smoking Status Current every day frank pruitt entered on: 04/09/17 Sex
--- OUTSIDE RECORDS SUMMARY | 2022-11-01 00:21 | XMS_ITS | Continuity of Care Document ---
Author Name Unknown Organization [facility] Address [address] [place] [address]- Care Team Providers Care Wood Room Supervisor Name Role Phone Leeann Ambrosio MD Primary Care Physician [phone] Encounter [facility] [place] Date(s): 10/05/21 - 10/06/[address] [address]- Encounter Diagnosis Depression(Final) - 10/06/21 Suicidal ideation(Final) - 10/06/21 Discharge Disposition: A-D/C Home Attending Physician: Kole Garcia DO Admitting Physician: Kole Garcia DO Referring Physician: Not on Staff, Referring MD Allergies, Adverse Reactions, Alerts Substance Reaction Severity Status diphenhydrAMINE Active hydrOXYzine Active tramadol Active trazodone-like drugs Active Singulair Active Risperdal Active Imitrex Moderate Active Haldol akathesia Active Latex Active Seafood Throat, Hands, Feet swell Persistent Candice re Active Strattera Active Cymbalta Active 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 Not true allergy Immunizations Given and Recorded Vaccine Date Status Refusal Reason influenza virus vaccine, inactivated 12/24/11 Give n influenza virus vaccine, inactivated 1 04/12/08 Gi jacobo pneumococcal 23-valent vaccine 12/16/08 Given tetanus-diphtheria toxoids (Td) 10/23/07 Given 1Result Comment: (l) [id number] (3) [id number] Medications albuterol CFC free 90 mcg/inh inhalation [...] opioid drug. Start Date: 07/06/21 Status: Ordered budesonide 1 mg/2 mL inhalation suspension 2 mL = 1 mg, Neb, 2 times a day, # 60 mL, 0 Refills, Maintenance, 10/08/19 15:39:00 EDT, Suspension Start Date: 10/08/19 Status: Ordered carbidopa-levodopa 25 mg-100 mg oral tablet See Instructions, 1 tablet by mouth every morning, then 1 tablet at night, 0 Refills, Maintenance, 07/06/21 9:06:00 EDT, Partial fill upon patient request if the prescription is for a schedule II opioid drug. Start Date: 07/06/21 Status: Ordered Colace sodium 100 mg oral capsule 100 mg, 1, capsule, By Mouth, 2 times a day, PRN, # 20 capsule, Refills 2, Tot. Refills 2, Maintenance, for constipation, 07/12/20 9:30:00 EDT, Route to Pharmacy Electronically, [facility] [address] , Partial fill upon patient request if the prescrip... Start Date: 07/12/20 Status: Ordered lamotrigine 25 mg oral tablet 75 mg, 3, tablet, By Mouth, Daily, Refills 0, Maintenance, 10/06/21 9:52:00 EDT, Partial fill upon patient request if the prescription is for a schedule II opioid drug. Start Date: 10/06/21 Status: Ordered Omeprazole 40, By Mouth, 2 [...] oldest [Reference Range]: 1 Height 155 cm (10/05/21 10:56 PM) Weight 83 kg (10/05/21 10:56 PM) Oxygen Saturation [94-100 %] 98 % (10/05/21 10:56 PM) Pulse Rate [55-90 bpm] 101 bpm *H* (10/05/21 10:56 PM) Blood Pressure [90-138/55-84 mm Hg] 140/ 106mm Hg *H* (10/05/21 10:56 PM) Respiratory Rate [16-30 br/min] 17 br/mi n (10/05/21 10:56 PM) Temperature [96.8-100.4 DegF] 98.3 DegF (10/05/21 10:56 PM) Mode of Delivery (Oxygen) Room air (10/05/21 10:56 PM) Blood pressure sites Arm, right (10/05/21 10:56 PM) Temperature Route Temporal (10/05/21 10:56 PM) Dry Weight 83 kg (10/05/21 10:56 PM) Social History Social History Type Response Smoking Status Current every day frank pruitt entered on: 04/09/17 Sex Care Team Personnel Name: Daily GARCIA, Leeann Beltran Address: [address] [place] [address]
--- OUTSIDE RECORDS SUMMARY | 2022-11-01 00:21 | XMS_ITS | Continuity of Care Document ---
Author Name Unknown Organization [facility] Address [address] [facility], [address], [address] [place] [address]- Care Team Providers Care Commander Internal Affairs Name Role Phone Daily GARCIA, Leeann Beltran Primary Care Physician [phone] Encounter [place] Date(s): 12/27/19 - 01/26/20 [facility] [address], [address], [address] [place] [address]- Attending Physician: Krysta Torres Admitting Physician: AdmtrKrysta Referring Physician: Admtr Ar8 Allergies, Adverse Reactions, Alerts Substance Reaction Severity [...] toxoids (Td) 10/23/07 Given 1Result Comment: (l) [id number] (7) [id number] Medications albuterol CFC free 90 mcg/inh inhalation [...] 12/13/18 10:53:39 EST, Route to Pharmacy Electronically, [id number], [facility] - [address] Start [...]
--- OUTSIDE RECORDS SUMMARY | 2022-11-01 00:21 | XMS_ITS | Continuity of Care Document ---
Author Name Unknown Organization [facility] Address [address] [place] [address]- Care Team Providers Care Fnp Name Role Phone Leeann Ambrosio MD Primary Care Physician [phone] Encounter [facility] [place] Date(s): 04/28/22 - 04/29/[address] [address]- Encounter Diagnosis Violent behavior with restraint use(Final) - 04/29/22 Suicidal ideation(Final) - 04/29/22 Disruptive behavior disorder(Final) - 04/29/22 Bipolar disorder(Final) - 04/29/22 GERD (gastroesophageal reflux disease)(Final) - 04/29/22 PTSD (post-traumatic stress disorder)(Final) - 04/29/22 Discharge Disposition: A-D/C Home Attending Physician: Brain [...] re Active Strattera Active Cymbalta Active [employer] 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 Not true allergy Immunizations Given and Recorded Vaccine Date Status Refusal Reason influenza virus vaccine, inactivated 12/24/11 Give n influenza virus vaccine, inactivated 1 04/12/08 Gi jacobo pneumococcal 23-valent vaccine 12/16/08 Given tetanus-diphtheria toxoids (Td) 10/23/07 Given 1Result Comment: (l) [id number] (3) [id number] Medications albuterol CFC free 90 mcg/inh inhalation aerosol 180 mcg, 2, puffs, Inhalation, Every 4 hours, PRN, Refills 0, Maintenance, 12/13/18 10:52:33 EST, Inhaler Start Date: 12/13/18 Status: Ordered amphetamine-dextroamphetamine 10 mg oral tablet 1 tablet = 10 mg, By Mouth, Daily in AM, 0 Refills, Maintenance, 04/29/22 9:43:00 EDT, Partial fillupon patient request if the prescription is for a schedule II opioid drug. Start Date: 04/29/22 Status: Ordered amphetamine-dextroamphetamine 15 mg oral tablet 1 tablet = 15 mg, By Mouth, 2 times a day, # 28 tablet, 0 Refills, Maintenance, 02/25/22 16:19:00 EST, Tablet, [facility] #[id number], Partial fill upon patient request if the prescription is for a scheduleII opioid drug., 1 tablet By Mouth 2 times a day,x1... Start Date: 02/25/22 Stop Date: 03/11/22 Status: Ordered amphetamine-dextroamphetamine 5 mg oral tablet 1 tablet = 5 mg, By Mouth, Daily before dinner, 0 Refills, Maintenance, 04/29/22 9:43:00 EDT, Partial fill upon patient request if the prescription is for a schedule II opioid drug. Start Date: 04/29/22 Status: Ordered budesonide 1 mg/2 mL inhalation suspension 2 mL = 1 mg, Neb, 2 times a day, PRN Wheezing/Shortness of Breath, # 60 mL, 0 Refills, Maintenance,10/08/19 15:39:00 EDT, Suspension Start Date: 10/08/19 Status: [...] prescrip... Start Date: 07/12/20 Status: Ordered lamotrigine 100 mg oral tablet 100 mg, 1, tablet, By Mouth, 2 times a day, # 60 tablet, Refills 5, Maintenance, 04/29/22 9:26:00 EDT, Partial fill upon patient request if the prescription is for a schedule II opioid drug. Start Date: 04/29/22 Status: Ordered Lidoderm 5% film 1 patch, Topically, Daily, # 7 patch, 0 Refills, Maintenance, 03/01/22 6:53:00 EST, [facility] #[id number], Partial fill upon patient request if the prescription is for a schedule II opioid drug., 1 patch Topically Daily,x7 days, 156, cm, 03/01/22 6:34:00 ES... Start Date: 03/01/22 Stop Date: 03/08/22 Status: Ordered LORazepam 2 mg oral tablet 1 tablet = 2 mg, By Mouth, 3 times a day, PRN for anxiety, 0 Refills, Maintenance, 04/29/22 9:46:00EDT, Tablet, Partial fill upon patient request if the prescription is for a schedule II opioid drug. Start Date: 04/29/22 Status: Ordered Omeprazole 40, By Mouth, 2 times a day, 0 Refills, Maintenance, 10/10/18 22:49:16 EDT Start Date: 10/10/18 Status: Ordered ondansetron 8 mg oral tablet, disintegrating dissolve 1 tablet ON TONGUE every 8 hours if needed Start Date: 12/25/21 Status: Ordered Paxlovid 150 mg-100 mg (150 mg-100 mg Dose) oral tablet See Instructions, Take 300 mg nirmatrelvir (two 150 mg tablet) and 100 mg ritonavir (one 100 mg tablet), taking both tablets together, orally twice daily for 5 days, # 30 tablet, 0 Refills, Maintenance, 03/02/22 14:04:00 EST, [facility] #[id number], Partial... Start Date: 03/02/22 Status: Ordered Zyrtec 10 mg oral tablet [...] Active Migraine aura without headache Confirmed Active Obese class I Confirmed Active Pituitary adenoma Confirmed Active PTSD (post-traumatic stress disorder) Confirmed Active Spina bifida, closed Confirmed Active UTI (urinary tract infection) Confirmed Active 1TOLERATES DROPERIDOL 2Problem added by Discern Expert Vital Signs Most recent to oldest [Reference Range]: 1 Height 155 cm (04/28/22 11:05 PM) Weight 82 kg (04/28/22 11:05 PM) Dry Weight 82 kg (04/28/22 11:05 PM) Social History Social History Type Response Smoking Status Current every day frank pruitt entered on: 04/09/17 Sex Note * Jen Urban MDh: PERFORM Event Display: Patient Education Leaflets Authored Date: Depression ?? [id number] Depression Depression is a very common mental health problem. It's not just a state of being unhappy or sad. It's a true disease. The cause seems to be linked to a change in chemicals that send signals in the brain. These things increase a person???s risk of depression: ??? A family history of depression, alcoholism, or suicide ??? Chronic illness ??? Chronic pain ???Migraine headaches ??? High emotional stress Depression may be easier to see in others. You may have a hard time seeing it in yourself. It can show in many physical and emotional ways. These include: ??? Loss of appetite ??? Overeating ??? Not being able to sleep ??? Sleeping too much ??? A lot of tiredness not linked to physical activity ??? Restlessness or irritability ??? Slowness of movement or speech ??? Feeling sad or withdrawn ??? Loss of interest in things you once enjoyed ??? Trouble??concentrating, remembering,??or making decisions ??? Thoughts of harming or killing yourself, or thoughts that life is not worth living ??? Low self-esteem The treatment for depression may include both medicine and psychotherapy. Antidepressants can ease symptoms. They can also make it easier for you to do daily tasks. Therapy can offer emotional support. It can also help you understand things that may be causing the depression. Home care ??? Ongoing care and support help people manage this disease. Find a healthcare provider and therapist who meet your needs. Get help when you feel like you may be getting ill. ??? Be kind to yourself. Make it a point to do things that you enjoy. This may be gardening, walking in nature, or going to a movie. Reward yourself for small successes. ??? Take care of your body. Eat a balanced diet. Eat foods low in saturated fat. Eat a lot of fruits and vegetables. Exercise at least 3 times a week for 30 minutes. Even mild to moderate exercise like brisk walking can make you feel better. ??? Take medicine as prescribed. Don't stop your medicine or change the dose unless you talk with your healthcare provider. ??? Once you start medicine, expect your symptoms to get better slowly. Depression will lift over time. It doesn't get better right away. Ask your healthcare provider how long it will take for a medicine to start working. ??? Don't share your medicine. Don???t use someone else's medicine. ??? Tell your healthcare providers all the medicines you take. This includes prescription and erju-tns-sxtzesg medicines. It includes vitamins and herbal supplements. Some supplements caninteract with medicines. They can cause dangerous side effects. Ask your pharmacist about medicine interactions when you have questions. ??? Don't make major decisions until you feel better. This incl udes things such as a job change, a divorce, or a marriage. ??? Don't drink alcohol. It can make depression worse. ??? Talk with your family and??trusted friends??about your feelings and thoughts.??Ask them to help you notice behavior changes early. You can then get help and, if needed, your medicine can be changed. ??? Talk with your healthcare provider if you are not getting better. They may change your medicine or have you try another treatment. ?? Follow-up care Follow up with your healthcare provider as advised. ?? Crisis care Call 988 if you have thoughts of harming yourself or others. When you call or text 988, you will beconnected to trained crisis counselors. An online chat option is also available. [employer] is free and available 01/09. 988 counselors will work with 911 to help you get the care you need. Call 988 if you: ??? Have suicidal thoughts, a suicide plan, and a way to carry out the plan ??? Have serious thoughts of hurting someone else ??? Have trouble breathing ??? Are??very confused ??? Feel very drowsy or have??trouble awakening ??? Faint ??? Have new chest pain that becomes more severe, lasts longer, or spreads into your shoulder, arm, neck, jaw, or back ?? When to get medical care Call your healthcare provider right away if any of these happen: ??? Your symptoms get worse ??? You have extreme depression, fear, anxiety, or anger toward yourself or others ??? You feel out of control ??? You feel that you may try to harm yourself or another ??? You hear voices other people don't hear ??? You see things other people don't see ??? You don't sleep or eat for 3 days in a row ??? Friends or family express concern over your behavior and ask you to get help ?? Last Reviewed Date: 2021 ?? 1529-2142 [employer]. All rights reserved. This information is not intended as a substitute for professional medical care. Always follow your healthcare professional's instructions. ?? Patient Care team information Care Team Personnel Name: Leeann Ambrosio MD Position: [facility] Physician (General Medicine) Member Role: PCP Address: Address: [address] [place] [address]- Name: Geovanna Vu MD Position: [facility] RECHARGER Member Role: Lifetime RECHARGER Physician Address: Address: [address] [place] [address]- Name: Saige Lacey RN Position: [facility] RN Member Role: Primary Care Nurse Name: Brenda Bear DO Position: [facility] RECHARGER Member Role: Lifetime RECHARGER Physician Address: Address: [address] [place], [place] [address], [place] [address]- Name: Evelin RN, Chetna Position: [facility] ED RN W/OE and Tasks Member Role: Patient Care Provider Name: Brain Urban MD Position: [facility] ED Medicine MD Member Role: Admitting Physician Address: Address: [address] [place] [address] [place] [address]- Care Team Related Persons Name: ANJU PADGETT Address: home [address] [place] [address] Name: SHIRLEY HU Address: home [address] [place] [address]
--- OUTSIDE RECORDS SUMMARY | 2022-11-01 00:21 | XMS_ITS | Continuity of Care Document ---
Author Name Unknown Organization [facility] Address [address] [place] [address]- Care Team Providers Care Retail Financial Analyst Name Role Phone Daily GARCIA, Leeann Beltran Primary Care Physician Encounter [facility] [place] Date(s): 07/10/20 - 07/11/[address] [address]- Discharge Disposition: A-D/C Home Attending Physician: Madelyn Branch MD Admitting Physician: Brenda Bear DO Referring Physician: Brenda Bear DO Allergies, Adverse Reactions, [...] toxoids (Td) 10/23/07 Given 1Result Comment: (l) [id number] (3 [id number] Medications acetaminophen 500 mg oral tablet 2 tablet = 1,000 mg, By Mouth, Every 6 hours, PRN for pain, # 120 tablet, 0 Refills, Acute 07/24/2114:30:00 EDT, 07/11/20 15:04:00 EDT, Tablet, [facility] - [address], Partial fill upon patient request if the prescription is for a schedule II opioid... Start Date: 07/11/20 Stop Date: 07/24/20 Status: Ordered albuterol CFC free 90 mcg/inh inhalation aerosol 180 mcg, 2, puffs, Inhalation, Every 4 hours, PRN, Refills 0, Maintenance, 12/13/18 10:52:33 EST, Inhaler Start Date: 12/13/18 Status: Ordered budesonide 1 mg/2 mL inhalation suspension 2 mL = 1 mg, Neb, 2 times a day, # 60 mL, 0 Refills, Maintenance, 10/08/19 15:39:00 EDT, Suspension Start Date: 10/08/19 Status: Ordered ibuprofen 800 mg oral tablet 800 mg, 1, tablet, By Mouth, Every 8 hours, # 30 tablet, Refills 0, Tot. Refills 0, Acute 07/21/20 15:04:00 EDT, 07/11/20 15:03:00 EDT, Route to Pharmacy Electronically, [facility] - [address], Partial fill upon patient request if the prescription is... Start Date: 07/11/20 Stop Date: 07/21/20 Status: Ordered levocetirizine 5 mg oral tablet 1 tablet = 5 mg, By Mouth, Daily at bedtime, 0 Refills, Maintenance, 12/01/18 13:35:45 EDT Start Date: 12/01/18 Status: Ordered metoprolol 50 mg oral tablet 50 mg, 1, tablet, By Mouth, 2 times a day, # 180 tablet, Refills 0, Maintenance, 06/09/19 22:08:00 EDT Start Date: 06/09/19 Status: Ordered metoprolol 50 mg oral tablet 50 mg, Tablet, By Mouth, Hold for: HR < 60, BP < 110/60, 07/11/20 9:00:00 EDT Start Date: 07/11/20 Stop Date: 07/11/20 Status: Completed Omeprazole = 20 mg, By Mouth, 2 times a day, 0 Refills, Maintenance, 10/10/18 22:49:16 EDT Start Date: 10/10/18 Status: Ordered oxyCODONE 5 mg oral tablet 10 mg, 2, tablet, By Mouth, Every 6 hours, PRN, # 30 tablet, Refills 0, Tot. Refills 0, Acute 07/16/20 15:30:00 EDT, as needed for pain, 07/11/20 15:03:00 EDT, Route to Pharmacy Electronically, [facility] - [address], Partial fill upon patient request... Start Date: 07/11/20 Stop Date: 07/16/20 Status: Ordered Toradol Inj 30 mg, Injection, IV Push Slowly, 07/11/20 12:01:00 EDT, Stop date 07/11/20 12:01:00 EDT Start Date: 07/11/20 Stop Date: 07/11/20 Status: Completed Tylenol 325 mg oral tablet 975 mg, Tablet, By Mouth, 07/11/20 12:00:00 EDT Start Date: 07/11/20 Stop Date: 07/11/20 Status: Completed Zofran 8 mg oral tablet 1 tablet [...] oldest [Reference Range]: 1 2 3 Height 154 cm (07/11/20 3:45 PM) 154 cm (07/11/20 11:54 AM) 154 cm (07/11/20 7:48 AM) Weight 87.5 kg (07/10/20 5:14 PM) 87.5 kg (07/10/20 5:13 PM) 87.3 kg (07/10/20 11:39 AM) Oxygen Saturation [94-100 %] 98 % (07/11/20 3:45 PM) 98 % (07/11/20 11:54 AM) 96 % (07/11/20 7:48 AM) Pulse Rate [55-90 bpm] 90 bpm (07/11/20 3:45 PM) 52 bpm *L* (07/11/20 11:54 AM) 89 bpm (07/11/20 9:40 AM) Body Mass Index [18.5-24.99] 36.89 *>HHI* (07/10/20 5:13 PM) 36.81 *>HHI* (07/10/20 11:39 AM) Blood Pressure [90-138/55-84 mm Hg] 112/69mm Hg (07/11/20 3:45 PM) 123/73mm Hg (07/11/20 11:54 AM) 114/69mm Hg (07/11/20 9:40 AM) Respiratory Rate [16-30 br/min] 18 br/min (07/11/20 3:45 PM) 18 br/min (07/11/20 1:39 PM) 18 br/min (07/11/20 1:08 PM) Temperature [96.8-100.4 DegF] 98.0 DegF (07/11/20 3:45 PM) 98.3 DegF (07/11/20 11:54 AM) 98.1 DegF (07/11/20 7:48 AM) Liters per Minute 2 L/min (07/10/20 4:30 PM) 2 L/min (07/10/20 4:15 PM) 2 L/min (07/10/20 4:00 PM) Mode of Delivery (Oxygen) Room air (07/11/20 3:45 PM) Room air (07/11/20 11:54 AM) Room air (07/11/20 7:48 AM) Blood pressure sites Arm, right (07/11/20 3:45 PM) Arm, right (07/11/20 11:54 AM) Arm, right (07/11/20 7:48 AM) Temperature Route Oral (07/11/20 3:45 PM) Oral (07/11/20 11:54 AM) Oral (07/11/20 7:48 AM) Dry Weight 87.3 kg (07/10/20 11:39 AM) Weight Obtained Via Bed scale (07/10/20 5:14 PM) Bed scale (07/10/20 5:13 PM) Standing scale (07/10/20 11:39 AM) Dry Weight Obtained Via Standing scale (07/10/20 11:39 AM) Social History Social History Type Response Smoking Status Current every day frank pruitt entered on: 04/09/17 Sex
--- OUTSIDE RECORDS SUMMARY | 2022-11-01 00:21 | XMS_ITS | Continuity of Care Document ---
Author Name Unknown Organization [facility] Address [address] [place] [address]- Care Team Providers Care Switchboard Operator Supervisor Name Role Phone Leeann Ambrosio MD Primary Care Physician Encounter [facility] [place] Date(s): 09/30/22 - 10/01/[address] [address]- Encounter Diagnosis Depression(Final) - 10/01/22 Discharge Disposition: A-D/C Home Attending Physician: Nba Bear DO Admitting Physician: Nba Bear DO Referring Physician: Not on Staff, Referring MD Allergies, Adverse Reactions, Alerts Substance Reaction Severity Status trazodone-like drugs Active Imitrex Moderate Active ketamine Active hydrOXYzine Active tramadol Active Risperdal Active Singulair Active Haldol akathesia Active Latex Active Seafood Throat, Hands, Feet swell Persistent Candice re Active Strattera Active Cymbalta Active Hand Mitten Stitcher 1 Active ZyPREXA 2 Active Paxlovid Severe Active 1REACTION - FULL BLOWN ASTHMA ATTACK 2Pt states it gives her a paradoxical reaction. Not true allergy Immunizations Given and Recorded Vaccine Date Status Refusal Reason influenza virus vaccine, inactivated 12/24/11 Give n influenza virus vaccine, inactivated 1 04/12/08 Gi jacobo pneumococcal 23-valent vaccine 12/16/08 Given tetanus-diphtheria toxoids (Td) 10/23/07 Given 1Result Comment: (l) [id number] (3) [id number] Medications Omeprazole 40, By Mouth, 2 times a day, 0 Refills, Maintenance, 10/10/18 22:49:16 EDT Start Date: 10/10/18 Status: Ordered ondansetron 8 mg oral tablet, disintegrating dissolve 1 tablet ON TONGUE every 8 hours if needed Start Date: 12/25/21 Status: Ordered Zyrtec 10 mg oral tablet [...] (post-traumatic stress disorder) Confirmed Active Severe obesity (BMI 35.0-39.9) with comorbidity Confirmed Active Spina bifida, closed Confirmed Active UTI (urinary tract infection) Confirmed Active 1TOLERATES DROPERIDOL 2Problem added by Discern Expert Vital Signs Most recent to oldest [Reference Range]: 1 2 Height 149 cm (10/01/22 8:58 AM) 149 cm (09/30/22 8:26 PM) Weight 86 kg (10/01/22 8:58 AM) 86 kg (09/30/22 8:26 PM) Dry Weight 86 kg (10/01/22 8:58 AM) 86 kg (09/30/22 8:26 PM) Social History Social History Type Response Smoking Status Current every day frank pruitt entered on: 04/09/17 Sex Patient Care team information Care Team Personnel Name: Leeann Ambrosio MD Position: [facility] Physician - Primary Care Member Role: PCP Address: Address: [address] [place] [address] Name: Geovanna Vu MD Position: [facility] SILO WORKER MD Member Role: Lifetime SILO WORKER Physician Address: Address: [address] [place] [address] Name: Saige Lacey RN Position: [facility] RN Member Role: Primary Care Nurse Name: Brenda Bear DO Position: [facility] SILO WORKER MD Member Role: Lifetime SILO WORKER Physician Address: Address: [address] [place], [place] [address] [address] Name: Donya Herrera RN Position: [facility] ED RN W/OE and Tasks Member Role: Patient Care Provider Name: Nba Bear DO Position: [facility] Resident Member Role: Admitting Physician Address: Address: [address] [place] [address] Dept [place] [address]- [place] Care Team Related Persons Name: ANJU PADGETT Address: home [address] [place] [address] Name: SHIRLEY HU Address: [place] [address]
--- OUTSIDE RECORDS SUMMARY | 2022-11-01 00:21 | XMS_ITS | Continuity of Care Document ---
Author Name Unknown Organization [facility] Address [address] [facility], [address] Floor, [address] [place] [address]- Care Team Providers Care Visual Stylist Name Role Phone Daily GARCIA, Leeann Beltran Primary Care Physician Encounter [facility] [place] Date(s): 09/18/20 - 09/25/20 [facility] [address] [place], [address], [address] [place], [place] [address] Attending Physician: Roxanne Chauhan DNP Allergies, Adverse Reactions, Alerts Substance Reaction Severity Status haloperidol Active diphenhydrAMINE Active hydrOXYzine Active tramadol Active trazodone-like drugs Active Singulair Active Risperdal Active Imitrex Moderate Active Latex Active Seafood Throat, Hands, Feet swell Persistent Candice re Active Cymbalta Active Hand Burn Out Tender Lace 1 Active ZyPREXA 2 Active 1REACTION - FULL BLOWN ASTHMA ATTACK 2Pt states it gives her a paradoxical reaction. Not true allergy Immunizations Given and Recorded Vaccine Date Status Refusal Reason influenza virus vaccine, inactivated 12/24/11 Give n influenza virus vaccine, inactivated 1 04/12/08 Gi jacobo pneumococcal 23-valent vaccine 12/16/08 Given tetanus-diphtheria toxoids (Td) 10/23/07 Given 1Result Comment: (l) [id number] (0) [id number] Medications albuterol CFC free 90 mcg/inh inhalation [...]
--- OUTSIDE RECORDS SUMMARY | 2022-11-01 00:21 | XMS_ITS | Continuity of Care Document ---
Author Name Unknown Organization [facility] Address [address] [place] [address]- Care Team Providers Care Director Media Name Role Phone Leeann Ambrosio MD Primary Care Physician [phone] [place] [facility] [place] - 07/08/[address] [address]- Encounter Diagnosis Depression(Final) - 07/06/21 Discharge Disposition: A-D/C Home Attending Physician: Olena Flaherty MD Admitting Physician: Olena Flaherty MD Referring Physician: Not on Staff, Referring MD Allergies, Adverse Reactions, Alerts Substance Reaction Severity Status diphenhydrAMINE Active hydrOXYzine Active tramadol Active trazodone-like drugs Active Singulair Active Risperdal Active Imitrex Moderate Active Latex Active Seafood Throat, Hands, Feet swell Persistent Candice re Active Strattera Active Cymbalta Active Hand Wood Stainer 1 Active ZyPREXA 2 Active 1REACTION - FULL BLOWN ASTHMA ATTACK 2Pt states it gives her a paradoxical reaction. Not true allergy Immunizations Given and Recorded Vaccine Date Status Refusal Reason influenza virus vaccine, inactivated 12/24/11 Give n influenza virus vaccine, inactivated 1 04/12/08 Gi jacobo pneumococcal 23-valent vaccine 12/16/08 Given tetanus-diphtheria toxoids (Td) 10/23/07 Given 1Result Comment: (l) [id number] (3) [id number] Medications albuterol CFC free 90 mcg/inh inhalation [...] the prescrip... Start Date: 07/12/20 Status: Ordered Omeprazole 40, By Mouth, 2 [...] Range]: 1 2 3 Height 155 cm (07/08/21 10:00 AM) 155 cm (07/08/21 8:00 AM) 155 cm (07/07/21 1:05 PM) Weight 82 kg (07/08/21 10:00 AM) 82 kg (07/08/21 8:00 AM) 82 kg (07/07/21 1:05 PM) Oxygen Saturation [94-100 %] 99 % (07/08/21 8:00 AM) 97 % (07/08/21 12:00 AM) 97 % (07/07/21 6:12 PM) Pulse Rate [55-90 bpm] 108 bpm *H* (07/08/21 8:00 AM) 112 bpm *H* (07/08/21 12:00 AM) 97 bpm *H* (07/07/21 6:12 PM) Body Mass Index [18.5-24.99] 34.13 *>HHI* (07/08/21 8:00 AM) 34.13 *>HHI* (07/07/21 1:05 PM) 34.13 *>HHI* (07/07/21 5:02 AM) Blood Pressure [90-138/55-84 mm Hg] 115/96mm Hg (07/08/21 8:00 AM) 124/86mm Hg (07/08/21 12:00 AM) 121/79mm Hg (07/07/21 6:12 PM) Respiratory Rate [16-30 br/min] 20 br/min (07/08/21 8:00 AM) 22 br/min (07/08/21 12:00 AM) 20 br/min (07/07/21 6:12 PM) Temperature [96.8-100.4 DegF] 98.3 DegF (07/08/21 8:00 AM) 98.6 DegF (07/08/21 12:00 AM) 98.7 DegF (07/07/21 6:12 PM) Mode of Delivery (Oxygen) Room air (07/08/21 8:00 AM) Room air (07/08/21 12:00 AM) Room air (07/07/21 6:12 PM) Blood pressure sites Arm, right (07/08/21 8:00 AM) Arm, left (07/08/21 12:00 AM) Arm, left (07/07/21 6:12 PM) Temperature Route Temporal (07/08/21 8:00 AM) Temporal (07/08/21 12:00 AM) Temporal (07/07/21 6:12 PM) Dry Weight 82 kg (07/08/21 10:00 AM) 82 kg (07/08/21 8:00 AM) 82 kg (07/07/21 1:05 PM) Social History Social History Type Response Smoking Status Current every day frank pruitt entered on: 04/09/17 Sex
--- OUTSIDE RECORDS SUMMARY | 2022-11-01 00:21 | XMS_ITS | Continuity of Care Document ---
Author Name Unknown Organization [facility] Address [address] [place] [address]- Care Team Providers Care Gas Station Manager Name Role Phone Leeann Ambrosio MD Primary Care Physician [place] [facility] [place] - 07/19/[address] [address]- Discharge Disposition: A-D/C Home Attending Physician: Olena Flaherty MD Admitting Physician: Olena Flaherty MD Referring Physician: Not on Staff, Referring MD Allergies, Adverse Reactions, Alerts Substance Reaction Severity Status trazodone-like drugs Active ketamine Active hydrOXYzine Active tramadol Active Risperdal Active Singulair Active Imitrex Moderate Active Haldol akathesia Active Latex Active Cymbalta Active Seafood Throat, Hands, Feet swell Persistent Candice re Active Strattera Active 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 Not true allergy Immunizations Given and Recorded Vaccine Date Status Refusal Reason influenza virus vaccine, inactivated 12/24/11 Give n influenza virus vaccine, inactivated 1 04/12/08 Gi jacobo pneumococcal 23-valent vaccine 12/16/08 Given tetanus-diphtheria toxoids (Td) 10/23/07 Given 1Result Comment: (l) [id number] (3) [id number] Medications Omeprazole 40, By Mouth, 2 times [...] Range]: 1 2 3 Height 155 cm (07/19/22 12:02 PM) 155 cm (07/19/22 12:01 AM) 155 cm (07/18/22 9:45 PM) Weight 86.5 kg (07/19/22 12:02 PM) 86.5 kg (07/19/22 12:01 AM) 86.5 kg (07/18/22 9:45 PM) Oxygen Saturation [94-100 %] 96 % (07/19/22 12:02 PM) 95 % (07/19/22 12:01 AM) 97 % (07/18/22 9:36 PM) Pulse Rate [55-90 bpm] 89 bpm (07/19/22 12:02 PM) 96 bpm *H* (07/19/22 12:01 AM) 129 bpm *H* (07/18/22 9:36 PM) Body Mass Index [18.5-24.99 kg/m2] 36 kg/m2 *>HHI* (07/19/22 12:02 PM) 36 kg/m2 *>HHI* (07/19/22 12:01 AM) Blood Pressure [90-138/55-84 mm Hg] 128/94mm Hg (07/19/22 12:02 PM) 107/78mm Hg (07/19/22 12:01 AM) 143/89mm Hg *H* (07/18/22 9:36 PM) Respiratory Rate [16-30 br/min] 18 br/min (07/19/22 12:02 PM) 17 br/min (07/19/22 6:15 AM) 18 br/min (07/19/22 3:54 AM) Temperature [96.8-100.4 DegF] 97.7 DegF (07/19/22 12:01 AM) 98.1 DegF (07/18/22 9:36 PM) Mode of Delivery (Oxygen) Room air (07/19/22 12:02 PM) Room air (07/19/22 12:01 AM) Blood pressure sites Arm, right (07/19/22 12:02 PM) Arm, right (07/19/22 12:01 AM) Arm, right (07/18/22 9:36 PM) Temperature Route Temporal (07/19/22 12:01 AM) Dry Weight 86.5 kg (07/19/22 12:02 PM) 86.5 kg (07/19/22 12:01 AM) 86.5 kg (07/18/22 9:45 PM) Social History Social History Type Response Smoking Status Current every day frank sonal entered on: 04/09/17 Sex Note * Krystina GARCIA, Olena Flynn: PERFORM Event Display: Patient Education Leaflets Authored Date: Intentional Overdose, Psych Evaluation??(Adult) ?? [id number] Intentional Overdose, Psych Evaluation??(Adult) You have been evaluated and treated for taking a drug or chemical product with the intent to harm yourself. There is no sign of a toxic effect at this time. It's not likely that you will have any newsymptoms. To be safe, watch for new symptoms during the next 24 hours (see below). Symptoms will depend on the type of drug or chemical you took. An intentional overdose is likely a sign that you are depressed. Or you may be very angry with yourself or someone else. For this reason, you have received a psychiatric (psych) evaluation. It's very important for you to follow the instructions in this evaluation. Home care ??? If you are being sent home, have someone stay with you. The emotional impact of the overdose may not sink in for a while. ??? Have your friend remove all potential self-harm objects from your home such as drugs or weapons. They should put them in a place that's unknown to you. ??? Find out the suicide prevention hotline numbers, emergency numbers, and your provider numbers. Place them where they can be easily located. Give the phone numbers to your friends and family members. ??? If you were given liquid charcoal, your stools will have a black color for 1 to 2 days. A laxative is often given with charcoal. This speeds the removal of any toxins from the intestines. This may cause diarrhea for up to 24 hours. ??? If you were given charcoal but no laxative, you may become constipated. If that happens, you may take an qtey-dkz-cixhrxi laxative. ?? In an emergency Once you get home, keep a list of emergency numbers near. This includes trusted family members, friends, your healthcare provider, and the National Suicide Prevention Lifeline. Trained crisis counselors at the [facility] are available by calling or texting 102. An online chat option is also availableat www.suicidepreventionlifeline.org. You can also call [employer] at 169-430-WRDL ([phone]). [employer] is free and available 01/09. ?? Follow-up care Follow up with your healthcare provider, or as advised. ??? If you are being sent home, have someone stay with you until you follow up with your healthcareprovider, clinic, or therapist. Do this as soon as possible. ??? If you feel the urge to harm yourself again, call or text 124. You will be connected to trained crisis counselors at the National Suicide Prevention Lifeline. ??? If you were given information about a healthcare provider, therapist, or clinic, follow up with them. ??? If you are being discharged for evaluation right away at a psychiatric facility on a voluntary basis, go directly there with a responsible adult. ??? If you have been placed on a ???72- hour psychiatric hold,?? a ride to a facility will be arranged for you. In the future, if you or someone you know takes something that may be harmful, call the [place] [employer] [facility] at 743-153-6547. There is someone there 24 hours a day. If you call, you will be connected to the poison control center closest to you. ?? Call 911 Call 911 if any of these occur: ??? Intense desire to harm yourself and a way to carry to out ??? Trouble breathing or swallowing, wheezing ??? Severe confusion ??? Extreme drowsiness or trouble waking up ??? Fainting or loss of consciousness ??? Fast heart rate ??? Very slow heart rate ??? Very low or very high blood pressure ??? Vomiting blood or large amounts of blood in stool ??? Seizure ?? When to get medical advice Call your healthcare provider right away if any of these occur: ??? Shakiness ??? Fast breathing (more than 25 breaths per minute) or slow breathing (less than 8 breaths per minute) ??? Shortness of breath ??? Fever of 100.4??F (38??C) or higher, or as directed by your healthcare provider ??? Shaking chills ??? Vomiting or diarrhea for more than 24 hours ??? Belly pain ??? Dizziness or weakness ??? Thoughts of harming yourself again (call or text 988) ?? For more help ??? National Suicide Prevention Lifeline at www.suicidepreventionlifeline.org or 998-385-BYZM (702-694-9542) ??? Substance Abuse and Mental Health Services Administration Helpline at www .samhsa.gov/find-help/national-helpline or 091-639-NMJK (009-957-9410) ??? National [place] on Mental Illness at www.lilliana.org or 722-327-5668 or text LILLIANA to 267182 ??? Mental Health [place] at www.[facility].org or 834-012-6164 ?? Last Reviewed Date: 2021 ?? The [employer]. All rights reserved. This information is not intended as a substitute for professional medical care. Always follow your healthcare professional's instructions. ?? * Krystina GARCIA, Olena Flynn: PERFORM Event Display: Patient Education Leaflets Authored Date: [id number] Depression ?? [id number] Depression Depression is a very common mental [...] medicines you take. This includes prescription and phad-udh-wyiemkz medicines. It includes vitamins and herbal supplements. [...] An online chat option is also available. [employer] is free and available 01/09. 988 counselors will work with [facility] to help you get the care you [...] help ?? Last Reviewed Date: 2021 ?? 6488-3908 The [employer]. All rights reserved. This information is not intended as a substitute for professional medical care. Always follow your healthcare professional's instructions. ?? Patient Care team information Care Team Personnel Name: Leeann Ambrosio MD Position: [facility] Physician - Primary Care Member Role: PCP Address: Address: [address] [place] [address] [address] Name: Geovanna Vu MD Position: [facility] HYDROELECTRIC PLANT ELECTRICAL ENGINEER MD Member Role: [employer] HYDROELECTRIC PLANT ELECTRICAL ENGINEER Physician Address: Address: [address] [place] [address] Name: Saige Lacey RN Position: [facility] RN Member Role: Primary Care Nurse Name: Brenda Bear DO Position: [facility] HYDROELECTRIC PLANT ELECTRICAL ENGINEER MD Member Role: [employer] HYDROELECTRIC PLANT ELECTRICAL ENGINEER Physician Address: Address: [address] [place] [address] Name: Olena Flaherty MD Position: [facility] ED Medicine MD Member Role: Admitting Physician Address: Address: [address] [facility] Emergency Medicine[address] Name: Melissa Walker RN Position: [facility] ED RN W/OE and Tasks Member Role: Patient Care Provider Care Team Related Persons Name: ANJU PADGETT Address: home [address] [place] [address] Name: SHIRLEY HU Address: home [address] [place] [address]
--- OUTSIDE RECORDS SUMMARY | 2022-11-01 00:21 | XMS_ITS | Continuity of Care Document ---
Author Name Unknown Organization [facility] Address [address] [place], [place] [address]andrew castano, [address] [place] [address]- Care Team Providers Care Financial Services Agent Name Role Phone Daily GARCIA, Leeann Beltran Primary Care Physician [phone] [place] [facility] [place]20 [facility] [address] [place] [address], [address] [place] [address]- Allergies, Adverse Reactions, Alerts Substance Reaction Severity [...] toxoids (Td) 10/23/07 Given 1Result Comment: (l) [id number] 3) [id number] Medications albuterol CFC free 90 mcg/inh inhalation [...] 0 Refills, Maintenance, 02/15/19 12:15:00 EST, Ointment, [facility] [address] , [...] 12/13/18 10:53:39 EST, Route to Pharmacy Electronically, [id number], [facility] [address] Start Date: [...]
--- OUTSIDE RECORDS SUMMARY | 2022-11-01 00:21 | XMS_ITS | Continuity of Care Document ---
Author Name Unknown Organization [facility] Address [address], [address], [address] [place] [address]- Care Team Providers Care Radiation Officer Name Role Phone Daily GARCIA, Leeann Beltran Primary Care Physician [phone] Encounter [facility] [place] Date(s): 04/24/20 - 05/01/20 [facility] [address], [address], [address] [place] [address]- Attending Physician: Roxanne Chauhan DNP Allergies, Adverse [...] toxoids (Td) 10/23/07 Given 1Result Comment: (l) [id number] (8) [id number] Medications albuterol CFC free 90 mcg/inh inhalation [...] 12/13/18 10:53:39 EST, Route to Pharmacy Electronically, [id number], [facility] - [address] Start [...]
--- OUTSIDE RECORDS SUMMARY | 2022-11-01 00:21 | XMS_ITS | Continuity of Care Document ---
Author Name Unknown Organization [facility] Address [address] [place] [address]- Care Team Providers Care Joint Runner Name Role Phone Daily GARCIA, Leeann Beltran Primary Care Physician [phone] [place] [facility] [place]/17/20 - 05/17/[address] [facility] [address] [address]- Attending Physician: Krysta Torres Admitting Physician: AdmKrysta lee Referring Physician: AdmtrKrysta Allergies, Adverse Reactions, Alerts Substance Reaction Severity [...] toxoids (Td) 10/23/07 Given 1Result Comment: (l) [id number] 3) [id number] Medications albuterol CFC free 90 mcg/inh inhalation [...] 12/13/18 10:53:39 EST, Route to Pharmacy Electronically, [id number], [facility] - [address] Start [...]
--- OUTSIDE RECORDS SUMMARY | 2022-11-01 00:22 | XMS_ITS | Continuity of Care Document ---
Author Name Unknown Organization [facility] Address [address] [place] [address]- Care Team Providers Care Pin Inserter Name Role Phone Leeann Ambrosio MD Primary Care Physician En[place] [facility] [place] Date(s): 12/20/21 - 12/21/[address] [address]- Encounter Diagnosis Anxiety(Final) - 12/21/21 Discharge Disposition: A-D/C Home Attending Physician: Damaris Goode MD Admitting Physician: Damaris Goode MD Referring Physician: Not on Staff, Referring MD Allergies, Adverse Reactions, Alerts Substance Reaction Severity Status diphenhydrAMINE Active ketamine Active hydrOXYzine Active tramadol Active trazodone-like drugs Active Singulair Active Risperdal Active Imitrex Moderate Active Haldol akathesia Active Latex Active Cymbalta Active Hand Finance Director 1 Active Seafood Throat, Hands, Feet swell Persistent Candice re Active Strattera Active ZyPREXA 2 Active 1REACTION - FULL BLOWN ASTHMA ATTACK 2Pt states it gives her a paradoxical reaction. Not true allergy Immunizations Given and Recorded Vaccine Date Status Refusal Reason influenza virus vaccine, inactivated 12/24/11 Give n influenza virus vaccine, inactivated 1 04/12/08 Gi jacobo pneumococcal 23-valent vaccine 12/16/08 Given tetanus-diphtheria toxoids (Td) 10/23/07 Given 1Result Comment: (l) [id number] (3 [id number] Medications albuterol CFC free 90 mcg/inh inhalation [...] opioid drug. Start Date: 10/06/21 Status: Ordered MorPHINE Inj 4 mg, Injection, Intramuscular, Once, STAT, 12/21/21 7:50:00 EST, Stop date 12/21/21 7:50:00 EST Start Date: 12/21/21 Stop Date: 12/21/21 Status: Completed MorPHINE Inj 2 mg, Injection, IV Push Slowly, Once, Routine, 12/21/21 3:00:00 EST, Stop date 12/21/21 3:00:00 EST Start Date: 12/21/21 Stop Date: 12/21/21 Status: Completed Omeprazole 40, By Mouth, 2 times a [...] Active Bipolar 1 disorder 1 Confirmed Active Dysuria Confirmed Active GERD (gastroesophageal reflux disease) Confirmed Active Migraine aura without headache Confirmed Active Obese class I Confirmed Active Pituitary adenoma Confirmed Active PTSD (post-traumatic stress disorder) Confirmed Active Spina bifida, closed Confirmed Active UTI (urinary tract infection) Confirmed Active 1TOLERATES DROPERIDOL Vital Signs Most recent to oldest [Reference Range]: 1 2 3 Height 155 cm (12/21/21 2:26 AM) 155 cm (12/21/21 12:59 AM) Weight 79.7 kg (12/21/21 2:26 AM) 79.7 kg (12/21/21 12:59 AM) Oxygen Saturation [94-100 %] 95 % (12/21/21 7:41 AM) 93 % *L* (12/21/21 2:26 AM) Pulse Rate [55-90 bpm] 103 bpm *H* (12/21/21 7:41 AM) 101 bpm *H* (12/21/21 2:26 AM) Body Mass Index [18.5-24.99 kg/m2] 33.17 kg/m2 *>HHI* (12/21/21 2:26 AM) Blood Pressure [90-138/55-84 mm Hg] 122/94mm Hg (12/21/21 7:41 AM) 112/92mm Hg (12/21/21 2:26 AM) Respiratory Rate [16-30 br/min] 16 br/min (12/21/21 7:54 AM) 18 br/min (12/21/21 7:41 AM) 16 br/min (12/21/21 6:02 AM) Mode of Delivery (Oxygen) Room air (12/21/21 7:41 AM) room air (12/21/21 2:26 AM) Dry Weight 79.7 kg (12/21/21 2:26 AM) 79.7 kg (12/21/21 12:59 AM) Social History Social History Type Response Smoking Status Current every day frank pruitt entered on: 04/09/17 Sex EKG study * Event Display: ECG 12-Lead Authored Date: Please click on pdf link to open report * Event Display: ECG 12-Lead Authored Date: Ventricular Rate: 109 BPM Atrial Rate: 109 BPM P-R Interval: 154 ms QRS Duration: 92 ms Q-T Interval: 358 ms QTC Calculation(Bazett): 482 ms P [place]: -4 degrees R [place]: -7 degrees T [place]: 2 degrees Sinus tachycardia Otherwise normal ECG When compared with ECG of 06-JUL-2021 02:06, No significant change was found Confirmed by NATO MCCLENDON ([id number]) on 12/21/2021 8:56:56 AM [place]: NATO MCCLENDON Note * Krystina GARCIA, Olena M: PERFORM Event Display: Patient Education Leaflets Authored Date: Depression ?? [id number] Depression Depression is a very common mental [...] medicines you take. This includes prescription and digp-dry-faykgft medicines. It includes vitamins and herbal supplements. [...] An online chat option is also available. [employer] is free and available 01/09. 988 counselors [...] help ?? Last Reviewed Date: 2021 ?? 9944-9332 The [employer]. All rights reserved. This information is not intended as a substitute for professional medical care. Always follow your healthcare professional's instructions. ?? Patient Care team information Care Team Personnel Name: Leeann Ambrosio MD Position: [facility] Physician (General Medicine) Member Role: PCP Address: Address: [address] [place] [address] Name: Geovanna Vu MD Position: [facility] DIRECTOR OF MANAGED SERVICES MD Member Role: [employer] DIRECTOR OF MANAGED SERVICES Physician Address: Address: [address] [place] [address] Name: Saige Lacey RN Position: [facility] RN Member Role: Primary Care Nurse Name: Brenda Bear DO Position: [facility] DIRECTOR OF MANAGED SERVICES MD Member Role: [employer] DIRECTOR OF MANAGED SERVICES Physician Address: Address: [address] [facility] [place] [address]- Name: Damaris Goode MD Position: [facility] ED Medicine MD Member Role: Admitting Physician Address: Address: [address] [place] [address] [place] [address]- Name: Antwon Gomez RN Position: [facility] ED RN W/OE and Tasks Member Role: Patient Care Provider Care Team Related Persons Name: ANJU PADGETT Address: home [address] [place] [address] Name: SHIRLEY HU Address: home [address] [place] [address]
--- OUTSIDE RECORDS SUMMARY | 2022-11-01 00:22 | XMS_ITS | Continuity of Care Document ---
Author Name Unknown Organization [facility] Address [address] [place] [address]- Care Team Providers Care Solicitor Patent Name Role Phone Leeann Ambrosio MD Primary Care Physician [phone] [place] [facility] [place] - 05/06/[address] [address]- Encounter Diagnosis Bipolar disorder(Final) - 05/06/22 Suicidal behavior(Final) - 05/06/22 Discharge Disposition: A-D/C Home Attending Physician: Trevin Aguirre MD Admitting Physician: Trevin Aguirre MD Referring Physician: Not on Staff, Referring MD Allergies, Adverse Reactions, Alerts Substance Reaction Severity Status ketamine Active hydrOXYzine Active tramadol Active trazodone-like drugs Active Singulair Active Risperdal Active Imitrex Moderate Active Haldol akathesia Active Latex Active Seafood Throat, Hands, Feet swell Persistent Candice re Active Strattera Active Cymbalta Active Hand Lead Pl Sql Developer 1 Active ZyPREXA 2 Active Paxlovid Severe Active 1REACTION - FULL BLOWN ASTHMA ATTACK 2Pt states it gives her a paradoxical reaction. Not true allergy Immunizations Given and Recorded Vaccine Date Status Refusal Reason influenza virus vaccine, inactivated 12/24/11 Give n influenza virus vaccine, inactivated 1 04/12/08 Gi jacobo pneumococcal 23-valent vaccine 12/16/08 Given tetanus-diphtheria toxoids (Td) 10/23/07 Given 1Result Comment: (l) [id number] (3) [id number] Medications albuterol CFC free 90 mcg/inh inhalation [...] Maintenance, 02/25/22 16:19:00 EST, Tablet, [id number], Partial fill upon patient request if the [...] Refills, Maintenance, 03/01/22 6:53:00 EST, [id number], Partial fill upon patient request if the [...] Refills, Maintenance, 03/02/22 14:04:00 EST, [id number], Partial... Start Date: 03/02/22 Status: Ordered Zyrtec [...] [Reference Range]: 1 2 Height 155 cm (05/06/22 4:12 AM) 155 cm (05/06/22 1:03 AM) Weight 82 kg (05/06/22 4:12 AM) 82 kg (05/06/22 1:03 AM) Oxygen Saturation [94-100 %] 99 % (05/06/22 1:03 AM) Pulse Rate [55-90 bpm] 147 bpm *H* (05/06/22 1:03 AM) Blood Pressure [90-138/55-84 mm Hg] 125/ 102mm Hg (05/06/22 1:03 AM) Respiratory Rate [16-30 br/min] 18 br/mi n (05/06/22 1:03 AM) Temperature [96.8-100.4 DegF] 98.2 DegF (05/06/22 1:03 AM) Mode of Delivery (Oxygen) Room air (05/06/22 1:03 AM) Blood pressure sites Arm, right (05/06/22 1:03 AM) Temperature Route Temporal (05/06/22 1:03 AM) Dry Weight 82 kg (05/06/22 4:12 AM) 82 kg (05/06/22 1:03 AM) Social History Social History Type Response Smoking Status Current every day frank pruitt entered on: 04/09/17 Sex Note * Timothy GARCIA, Trevin Munoz: PERFORM Event Display: Patient Education Leaflets Authored Date: [id number] Bipolar Disorder ?? [id number] Bipolar Disorder Bipolar disorder is a serious, life-altering illness. It causes strong mood swings between depression and hever. It used to be called manic depression. The mood swings are different from the normal ups and downs people have in their lives. They are more severe and last longer. They can seriously interfere with work and relationships. These episodes are changes from usual moods and behavior. They can be mild, or drastic and explosive. The time between feelings of depression and hever varies with each person. It can be weeks, month, or even years. ??? In a manic episode, you may think fast and do things quickly. It may seem like you are getting a lot done. It may feel very good at first. But in the extreme, hever can lead to a lifestyle that is disorganized and chaotic. You may take part in risky behavior. Examples are spending sprees, sexual acting-out, or drug use. In later stages, you may have no interest in food. You may not be able tosleep for days at a time. Your speech may speed up and become hard to understand. You may appear toothers as if you are in your own world. ??? In a depressive episode, you may feel a lack of interest in normal activities. Sometimes you feel sadness or guilt without any clear reason. Your thinking may become slow. You may also lack energy or good concentration, or feel hopeless. Some people have thoughts of harming themselves at this stage. Thoughts can even turn to suicide. You may feel OK between these phases. This does not mean that the illness is gone. People with thisdisorder will often have to treat it all their life. Correct use of medicines and ongoing medical and mental health support can greatly ease symptoms. They can enhance your quality of life. The exact cause of bipolar disorder is unknown. But there is a genetic link that makes a person more likely to get it. Using illegal drugs such as speed (amphetamine) and cocaine raises a person's risk for this illness. Home care Here is what you can do at home: ??? Ongoing care and support can help you manage this disease. Find a healthcare provider and therapist who meet your needs. Seek help right away when you feel like you may be heading into either a manic episode or a depressive state. ??? Take your medicine as prescribed. Get regular blood work to check the levels of medicine in your body. Do this??even if you think you don???t need to do it. ??? Don't change or stop taking your medicine unless your healthcare provider says it is OK to do so. Don't share or use another person's medicines. ??? Tell all your healthcare providers about all the prescriptions, fwnp-pgy-zgfxvdo medicines, and supplements you take.? ?Certain supplements interact with medicines. They may cause dangerous side effects. You can also ask your pharmacist about medicine interactions before starting any new medicine or supplement. ??? Talk with your family and trusted friends about your thoughts and feelings. Ask them to help you notice behavior changes early. You can then get help and have your medicines adjusted, if needed. When you are feeling well, make a management plan for a trusted friend or family member to help you during hard times. For example, you can ask them to hold your credit cards for you if you overspend during a hever. Or they can get emergency help for you if your depression leads to suicidal thoughts. Ifyour illness is severe, consider giving trusted people access to your healthcare providers. They can then work together to keep you safe. ??? Don't drink alcohol or use illegal drugs. They can bring on an episode and make it worse. ??? If your life is severely affected by this illness, the Americans with Disabilities Act (ADA) may provide help. The ADA protects people with chronic physical and mental health problems. Contact your local ADA office for help if you are having trouble keeping jobs,managing workplace issues, or caring for yourself because of your bipolar disorder. The U.S. Department of Justice has a toll-free T[employer] information line at 653-990-5573 (voice) or 248-003-7042 (TTY). It can help you find a local office. Or??go to www.ada.gov for more information. ??? Join an in-person or virtual support group for people with mental health problems. ?? Follow-up care Follow up with your healthcare provider or therapist as advised. They can help you find ways to improve your life. ?? Call or text [phone] When you call or text 988, you will be connected to trained crisis counselors at the Suicide Prevention Lifeline. An online chat option is also available. Lifeline is free and available 01/09. 987 counselors will work closely with [facility] to get you the care you need. Call or text 988 if you have: ??? Suicidal thoughts, a plan to harm yourself, and the means to do so ??? Serious thoughts of hurting someone else ??? Trouble breathing ??? Confusion ??? Drowsiness ortrouble wakening ??? Fainting or loss of consciousness ??? Rapid heart rate, very low heart rate, or a new irregular heart rate ??? Seizure ??? New chest pain that becomes more severe, lasts longer, or spreads into your shoulder, arm, neck, jaw, or back ?? When to seek medical advice Call your healthcare provider right away if any of these happen: ??? Feeling like your symptoms aregetting worse (depression, agitation, or excessive energy) ??? Not eating or sleeping for more than48 hours ??? Feeling out of control (racing thoughts, paranoid thoughts, hallucinations, or poor concentration) ??? Feeling like you want to harm yourself or another ??? Being unable to care for yourself ?? Last Reviewed Date: 2021 ?? 5458-1620 [employer]. All rights reserved. This information is not intended as a substitute for professional medical care. Always follow your healthcare professional's instructions. ?? Patient Care team information Care Team Personnel Name: Leeann Ambrosio MD Position: [facility] Physician (General Medicine) Member Role: PCP Address: Address: [address] [place] [address]- Name: Geovanna Vu MD Position: [facility] CLIENT SERVICE MANAGER MD Member Role: [employer]etime CLIENT SERVICE MANAGER Physician Address: Address: [address] [place] [address] Name: Saige Lacey RN Position: [facility] RN Member Role: Primary Care Nurse Name: Brenda Bear DO Position: [facility] CLIENT SERVICE MANAGER MD Member Role: [employer] CLIENT SERVICE MANAGER Physician Address: Address: [address] [place] [address] [address]- Name: Luis Fernando Vu RN Position: [facility] ED RN W/OE and Tasks Member Role: Patient Care Provider Name: Trevin Aguirre MD Position: [facility] ED Medicine MD Member Role: ED Attending Physician Address: Address: [address] [facility] [place] [address]- Care Team Related Persons Name: ANJU PADGETT Address: home [address] [place] [address] Name: SHIRLEY HU Address: home [address] [place] [address]
--- OUTSIDE RECORDS SUMMARY | 2022-11-01 00:22 | XMS_ITS | Continuity of Care Document ---
Author Name Unknown Organization [facility] Address [address] [place] [address]- Care Team Providers Care Licensing Engineer Name Role Phone Daily GARCIA, Leeann Beltran Primary Care Physician [phone] [place] [facility] [place] - 07/21/[address] [address]- Allergies, Adverse Reactions, Alerts Substance Reaction Severity [...] toxoids (Td) 10/23/07 Given 1Result Comment: (l) [id number] (3) [id number] Medications acetaminophen 500 mg oral tablet 2 [...] 9:30:00 EDT, Route to Pharmacy Electronically, [facility] [address], Partial fill upon patient request if the prescrip... Start Date: 07/12/20 Status: Ordered levocetirizine 5 mg oral tablet [...]
--- OUTSIDE RECORDS SUMMARY | 2022-11-01 00:22 | XMS_ITS | Continuity of Care Document ---
Author Name Unknown Organization [facility] Address [address] [place] [address]- Care Team Providers Care Machine Deicer Element Winder Name Role Phone Daily GARCIA, Leeann Beltran Primary Care Physician [phone] [place] [facility] [place] Date(s): 03/06/20 - 04/05/20 [facility] [address] [place] [address]- Allergies, Adverse Reactions, Alerts Substance Reaction Severity [...] toxoids (Td) 10/23/07 Given 1Result Comment: (l) [id number] (7) [id number] Medications albuterol CFC free 90 mcg/inh inhalation [...] 0 Refills, Maintenance, 02/15/19 12:15:00 EST, Ointment, [facility] - [address] , 1 [...] 12/13/18 10:53:39 EST, Route to Pharmacy Electronically, [id number], [facility] [address] Start Date: [...]
--- OUTSIDE RECORDS SUMMARY | 2022-11-01 00:22 | XMS_ITS | Continuity of Care Document ---
Author Name Unknown Organization [facility] Address [address] [place] [address]- Care Team Providers Care Federal Agent Name Role Phone Daily GARCIA, Leeann Beltran Primary Care Physician [phone] En[place] [facility] [place] Date(s): 02/16/19 - 02/26/[address] [address]- [facility] [phone] Attending Physician: AdmKrysta lee Admitting Physician: AdmtrKrysta Referring Physician: Admtr, Ar8 Allergies, Adverse Reactions, Alerts Substance Reaction [...] toxoids (Td) 10/23/07 Given 1Result Comment: (l) [id number] Medications albuterol CFC free 90 mcg/inh inhalation [...] 12/13/18 10:53:39 EST, Route to Pharmacy Electronically, [id number], [facility] - [address] Start Date: 12/13/18 Status: Ordered levocetirizine 5 mg oral tablet [...] 12/13/18 10:56:49 EST, Route to Pharmacy Electronically, [id number], [facility] [address] Start Date: 12/13/18 Status: Ordered Nicorette 4 mg oral transmucosal [...]
--- OUTSIDE RECORDS SUMMARY | 2022-11-01 00:22 | XMS_ITS | Continuity of Care Document ---
Author Name Unknown Organization [facility] Address [address] [facility], [address] Floor, [address] [place] [address]- Care Team Providers Care Gas Appliance Mechanic Name Role Phone Daily GARCIA, Leeann Beltran Primary Care Physician [place] [facility] [place](s): 03/07/19 - 06/18/19 [facility] [address] [place], [address] Floor, [address] [place] [address]- [facility] Attending Physician: Roxanne Chauhan DNP Allergies, Adverse Reactions, Alerts Substance Reaction Severity Status haloperidol Active hydrOXYzine Active tramadol Active Risperdal Active Imitrex Moderate Active Latex Active Seafood Throat, Hands, Feet swell Persistent Candice re Active Cymbalta Active ZyPREXA Active Singulair Active Immunizations Given and Recorded Vaccine Date Status Refusal Reason influenza virus vaccine, inactivated 12/24/11 Give n influenza virus vaccine, inactivated 1 04/12/08 Gi jacobo pneumococcal 23-valent vaccine 12/16/08 Given tetanus-diphtheria toxoids (Td) 10/23/07 Given 1Result Comment: (l) [id number] (0) [id number] Medications albuterol CFC free 90 mcg/inh inhalation [...] 12/13/18 10:53:39 EST, Route to Pharmacy Electronically, [id number], [facility] - [address] Start [...] 12/13/18 10:56:49 EST, Route to Pharmacy Electronically, [id number], [facility] [address] Start Date: 12/13/18 Status: Ordered metoprolol 50 mg oral tablet 50 mg, 1, tablet, By Mouth, 2 times a day, # 180 tablet, Refills 0, Maintenance, 06/09/19 22:08:00 EDT Start Date: 06/09/19 Status: Ordered Misc Rx Refills 0, Maintenance, [...] Gm, 0 Refills, Maintenance, 02/15/19 12:15:00 EST, [facility] [address], Mix asmall amount in clobetasol gradually increasing up... Start Date: 02/15/19 Status: Ordered Topamax 100 mg oral tablet 1 tablet = 100 mg, By Mouth, 2 times a day, Dose is 1.5 tabs, 0 Refills, Maintenance, [...]
--- OUTSIDE RECORDS SUMMARY | 2022-11-01 00:22 | XMS_ITS | Continuity of Care Document ---
Author Name Unknown Organization [facility] Address [address] [place] [address]- Care Team Providers Care Equipment Lead Name Role Phone Leeann Ambrosio MD Primary Care Physician [place] [facility] [place] 09/26/21 - 09/27/[address] [address]- Discharge Disposition: A-D/C Home Attending Physician: Olena Flaherty MD Admitting Physician: Olena Flaherty MD Referring Physician: Not on Staff, Referring MD Allergies, Adverse Reactions, Alerts Substance Reaction Severity Status diphenhydrAMINE Active hydrOXYzine Active tramadol Active trazodone-like drugs Active Singulair Active Risperdal Active Imitrex Moderate Active Latex Active Seafood Throat, Hands, Feet swell Persistent Candice re Active Strattera Active Cymbalta Active 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 Not true allergy Immunizations Given and Recorded Vaccine Date Status Refusal Reason influenza virus vaccine, inactivated 12/24/11 Give n influenza virus vaccine, inactivated 1 04/12/08 Gi jacobo pneumococcal 23-valent vaccine 12/16/08 Given tetanus-diphtheria toxoids (Td) 10/23/07 Given 1Result Comment: (l) [id number] (3) [id number] Medications Acetaminophen Tablet 650 mg, Tablet, By Mouth, Every 8 hours, PRN for Pain , Moderate, STAT, 09/26/21 18:45:00 EDT Start Date: 09/26/21 Stop Date: 09/27/21 Status: Discontinued albuterol CFC free 90 mcg/inh inhalation aerosol [...] Date: 07/11/21 Stop Date: 07/21/21 Status: Ordered Ibuprofen Tablet 600 mg, Tablet, By Mouth, Every 8 hours, PRN for Pain , Moderate, STAT, 09/26/21 18:49:00 EDT Start Date: 09/26/21 Stop Date: 09/27/21 Status: Discontinued Omeprazole 40, By Mouth, 2 times a [...] Range]: 1 2 3 Height 155 cm (09/27/21 1:04 AM) 155 cm (09/26/21 6:42 PM) Weight 83 kg (09/27/21 1:04 AM) 83 kg (09/26/21 6:42 PM) Oxygen Saturation [94-100 %] 99 % (09/27/21 8:00 AM) 97 % (09/27/21 1:04 AM) 96 % (09/26/21 9:59 PM) Pulse Rate [55-90 bpm] 88 bpm (09/27/21 8:00 AM) 101 bpm *H* (09/27/21 1:04 AM) 94 bpm *H* (09/26/21 9:59 PM) Body Mass Index [18.5-24.99] 34.55 *>HHI* (09/27/21 1:04 AM) Blood Pressure [90-138/55-84 mm Hg] 110/88mm Hg (09/27/21 8:00 AM) 127/91mm Hg (09/27/21 1:04 AM) Respiratory Rate [16-30 br/min] 16 br/min (09/27/21 8:00 AM) 16 br/min (09/27/21 6:23 AM) 16 br/min (09/27/21 6:23 AM) Temperature [96.8-100.4 DegF] 97.8 DegF (09/27/21 8:00 AM) 98 DegF (09/27/21 1:04 AM) 98.4 DegF (09/26/21 9:59 PM) Mode of Delivery (Oxygen) Room air (09/27/21 8:00 AM) Room air (09/27/21 1:04 AM) Room air (09/26/21 9:59 PM) Blood pressure sites Arm, left (09/27/21 8:00 AM) Arm, left (09/27/21 1:04 AM) Temperature Route Temporal (09/27/21 8:00 AM) Temporal (09/27/21 1:04 AM) Temporal (09/26/21 9:59 PM) Dry Weight 83 kg (09/27/21 1:04 AM) 83 kg (09/26/21 6:42 PM) Social History Social History Type Response Smoking Status Current every day frank pruitt entered on: 04/09/17 Sex
--- OUTSIDE RECORDS SUMMARY | 2022-11-01 00:22 | XMS_ITS | Continuity of Care Document ---
Author Name Unknown Organization [facility] Address [address] [place] [address]- Care Team Providers Care Assembler Ping Pong Table Name Role Phone Leeann Ambrosio MD Primary Care Physician [phone] [place] [facility] [place] - 07/30/[address] [address]- Discharge Disposition: Transferred [facility]-term general hospit Attending Physician: Eugene Xavier DO Admitting Physician: Eugene Xavier DO Referring Physician: Not on Staff, Referring MD Allergies, Adverse Reactions, Alerts Substance Reaction Severity Status haloperidol Active diphenhydrAMINE Active hydrOXYzine Active tramadol Active trazodone-like drugs Active Singulair Active Risperdal Active Imitrex Moderate Active Latex Active Seafood Throat, Hands, Feet swell Persistent Candice re Active Cymbalta Active Hand Radial Router Operator 1 Active ZyPREXA 2 Active 1REACTION - FULL BLOWN ASTHMA ATTACK 2Pt states it gives her a paradoxical reaction. Not true allergy Immunizations Given and Recorded Vaccine Date Status Refusal Reason influenza virus vaccine, inactivated 12/24/11 Give n influenza virus vaccine, inactivated 1 04/12/08 Gi jacobo pneumococcal 23-valent vaccine 12/16/08 Given tetanus-diphtheria toxoids (Td) 10/23/07 Given 1Result Comment: (l) [id number] 3) [id number] Medications albuterol CFC free 90 mcg/inh inhalation [...] 07/12/20 9:30:00 EDT, Route to Pharmacy Electronically, [facility] [address] , Partial fill upon [...] Status: Ordered oxyCODONE 5 mg oral tablet 5 mg, Tablet, By Mouth, Once, Routine, 07/29/20 22:00:00 EDT, Stop date 07/29/20 22:00:00 EDT Start Date: 07/29/20 Stop Date: 07/29/20 Status: Completed oxyCODONE 5 mg oral tablet 10 mg, 2, tablet, By Mouth, Every 6 hours, PRN, Refills 0, Tot. Refills 0, Maintenance, as needed for pain, 07/30/20 6:36:00 EDT, Partial fill upon patient request if the prescription is for a schedule II opioid drug. Start Date: 07/30/20 Status: Ordered oxyCODONE 5 mg oral tablet 5 mg, Tablet, By Mouth, Once, PRN for Pain , Moderate, STAT, 07/30/20 8:32:00 EDT Start Date: 07/30/20 Stop Date: 07/30/20 Status: Completed Topiramate = 100 mg, By Mouth, Daily, [...] Range]: 1 2 3 Height 155 cm (07/29/20 8:45 PM) Weight 87 kg (07/29/20 8:45 PM) Oxygen Saturation [94-100 %] 97 % (07/30/20 7:00 AM) 96 % (07/29/20 8:37 PM) Pulse Rate [55-90 bpm] 116 bpm *H* (07/30/20 7:00 AM) 130 bpm *H* (07/29/20 8:37 PM) Blood Pressure [90-138/55-84 mm Hg] 129/84mm Hg (07/30/20 7:00 AM) 160/113mm Hg *H* (07/29/20 8:37 PM) Respiratory Rate [16-30 br/min] 16 br/min (07/30/20 8:36 AM) 16 br/min (07/30/20 7:33 AM) 16 br/min (07/30/20 6:34 AM) Temperature [96.8-100.4 DegF] 98.0 DegF (07/30/20 7:00 AM) 97.5 DegF (07/29/20 8:37 PM) Mode of Delivery (Oxygen) Room air (07/30/20 7:00 AM) Room air (07/29/20 8:37 PM) Temperature Route Axillary (07/30/20 7:00 AM) Oral (07/29/20 8:37 PM) Dry Weight 87 kg (07/29/20 8:45 PM) Weight Obtained Via Patient/family state d (07/29/20 8:45 PM) Social History Social History Type Response Smoking Status Current every day frank pruitt entered on: 04/09/17 Sex
--- OUTSIDE RECORDS SUMMARY | 2022-11-01 00:22 | XMS_ITS | Continuity of Care Document ---
Author Name Unknown Organization [facility] Address [address] [place] [address]- Care Team Providers Care Pick Remover Name Role Phone Leeann Ambrosio MD Primary Care Physician Encounter [facility] [place] Date(s): 06/12/21 - 06/14/[address] [address]- Discharge Disposition: A-D/C Home Attending Physician: Trevin Aguirre MD Admitting Physician: Trevin Aguirre MD Referring Physician: Not on Staff, Referring MD Allergies, Adverse Reactions, Alerts Substance Reaction Severity Status haloperidol Active diphenhydrAMINE Active hydrOXYzine Active tramadol Active trazodone-like drugs Active Singulair Active Risperdal Active Imitrex Moderate Active Latex Active Seafood Throat, Hands, Feet swell Persistent Candice re Active Strattera Active Cymbalta Active 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 Not true allergy Immunizations Given and Recorded Vaccine Date Status Refusal Reason influenza virus vaccine, inactivated 12/24/11 Give n influenza virus vaccine, inactivated 1 04/12/08 Gi jacobo pneumococcal 23-valent vaccine 12/16/08 Given tetanus-diphtheria toxoids (Td) 10/23/07 Given 1Result Comment: (l) [id number] Medications albuterol CFC free 90 mcg/inh inhalation [...] Exam Date Time Procedure Performing Provider Status 06/13/21 9:29 PM Hand Min 3 Views Right Jean Pierre Barger , Edw in; Auth (Verified) Notes: (Hand Min 3 Views Right) Reason For Exam: with Pain;Trauma RESULT: Hand Min 3 Views Right Hand Min 3 Views Right, 3 views Hx of Present Illness: SI. MHE; Reason: Trauma; with Pain; Clinical Question(s): Fracture COMPARISON: 02/12/2014 FINDINGS: No fractures or bone lesions. No arthritic changes. Normal soft tissues. IMPRESSION: No acute abnormality identified. WSN: [id number] Ordering Physician: Tammy Vyas Dictated By: Joon Samuels MD Dictated Date/Time: 06/13/21 10:14 p Reviewed By: Joon Samuels MD Signed By: Joon Samuels MD Signed Date/Time: 06/13/21 10:14 pm Transcribed By: BARB Transcribed Date/Time: 06/13/21 10:12 pm Vital Signs Most recent to oldest [Reference Range]: 1 2 3 Height 156 cm (06/12/21 9:07 PM) 157 cm (06/12/21 9:03 PM) Weight 89.2 kg (06/12/21 9:07 PM) 82 kg (06/12/21 9:03 PM) Oxygen Saturation [94-100 %] 98 % (06/14/21 11:27 AM) 97 % (06/14/21 3:00 AM) 96 % (06/13/21 6:30 PM) Pulse Rate [55-90 bpm] 94 bpm *H* (06/14/21 11:27 AM) 90 bpm (06/14/21 3:00 AM) 103 bpm *H* (06/13/21 6:30 PM) Blood Pressure [90-138/55-84 mm Hg] 124/90mm Hg (06/14/21 11:27 AM) 111/78mm Hg (06/14/21 3:00 AM) 145/93mm Hg *H* (06/13/21 6:30 PM) Respiratory Rate [16-30 br/min] 18 br/min (06/14/21 11:27 AM) 18 br/min (06/14/21 3:00 AM) 18 br/min (06/13/21 11:00 PM) Temperature [96.8-100.4 DegF] 97.8 DegF (06/14/21 11: AM) 99 DegF (06/12/21 9:17 PM) Mode of Delivery (Oxygen) Room air (06/14/21 11:27 AM) Room air (06/14/21 3:00 AM) Room air (06/13/21 6:30 PM) Temperature Route Temporal (06/14/21 11:27 AM) Temporal (06/12/21 9:17 PM) Dry Weight 89.2 kg (06/12/21 9:07 PM) 82 kg (06/12/21 9:03 PM) Weight Obtained Via Bed scale (06/12/21 9:07 PM) Social History Social History Type Response Smoking Status Current every day frank pruitt entered on: 04/09/17 Sex
--- OUTSIDE RECORDS SUMMARY | 2022-11-01 00:22 | XMS_ITS | Continuity of Care Document ---
Author Name Unknown Organization [facility] Address [address] [place] [address]- Care Team Providers Care Environmental Monitoring Specialist Name Role Phone Leeann Ambrosio MD Primary Care Physician Encounter [facility] [place] Date(s): 03/08/22 - 03/08/[address] [address]- Encounter Diagnosis COVID-19(Final) - 03/08/22 Discharge Disposition: A-D/C Home Attending Physician: Abhijit Medina MD Admitting Physician: Abhijit Medina MD Referring Physician: Not on Staff, Referring MD Allergies, Adverse Reactions, Alerts Substance Reaction Severity Status ketamine Active hydrOXYzine Active tramadol Active trazodone-like drugs Active Singulair Active Risperdal Active Imitrex Moderate Active Haldol akathesia Active Latex Active Seafood Throat, Hands, Feet swell Persistent Candice re Active Strattera Active Cymbalta Active Hand Neonatal Nurse 1 Active ZyPREXA 2 Active 1REACTION - FULL BLOWN ASTHMA ATTACK 2Pt states it gives her a paradoxical reaction. Not true allergy Immunizations Given and Recorded Vaccine Date Status Refusal Reason influenza virus vaccine, inactivated 12/24/11 Give n influenza virus vaccine, inactivated 1 04/12/08 Gi jacobo pneumococcal 23-valent vaccine 12/16/08 Given tetanus-diphtheria toxoids (Td) 10/23/07 Given 1Result Comment: (l) [id number] (3) [id number] Medications Adderall 10 mg oral tablet 2 tablets, 2 times a day, takes at 0800 and 1400, 0 Refills, Maintenance, 02/24/22 15:59:00 EST, Tablet, Partial fill upon patient request if the prescription is for a schedule II opioid drug. Start Date: 02/24/22 Status: Ordered albuterol CFC free 90 mcg/inh inhalation aerosol 180 mcg, 2, puffs, Inhalation, Every 4 hours, PRN, Refills 0, Maintenance, 12/13/18 10:52:33 EST, Inhaler Start Date: 12/13/18 Status: Ordered amphetamine-dextroamphetamine 15 mg oral tablet 1 tablet = 15 mg, By Mouth, 2 times a day, # 28 tablet, 0 Refills, Maintenance, 02/25/22 16:19:00 EST, Tablet, [facility] #[id number], Partial fill upon patient request if the prescription is for a scheduleII opioid drug., 1 tablet By Mouth 2 times a day,x1... Start Date: 02/25/22 Stop Date: 03/11/22 Status: Ordered budesonide 1 mg/2 mL inhalation [...] opioid drug. Start Date: 10/06/21 Status: Ordered Lidoderm 5% film 1 patch, Topically, Daily, # 7 patch, 0 Refills, Maintenance, 03/01/22 6:53:00 EST, [facility] #[id number], Partial fill upon patient request if the prescription is for a schedule II opioid drug., 1 patch Topically Daily,x7 days, 156, cm, 03/01/22 6:34:00 ES... Start Date: 03/01/22 Stop Date: 03/08/22 Status: Ordered Loratadine By Mouth, Daily at bedtime, 24 hour tablet, this as reported by patient, Refills 0, Maintenance, 02/24/22 16:25:00 EST, Partial fill upon patient request if the prescription is for a schedule II opioid drug. Start Date: 02/24/22 Status: Ordered Omeprazole 40, By Mouth, 2 [...] Refills, Maintenance, 03/02/22 14:04:00 EST, [facility] #[id number], Partial... Start Date: 03/02/22 Status: Ordered Zyrtec [...] recent to oldest [Reference Range]: 1 Height 156 cm (03/08/22 3:32 PM) Weight 83 kg (03/08/22 3:32 PM) Oxygen Saturation [94-100 %] 100 % (03/08/22 3:32 PM) Pulse Rate [55-90 bpm] 129 bpm *H* (03/08/22 3:32 PM) Blood Pressure [90-138/55-84 mm Hg] 134/ 106mm Hg (03/08/22 3:32 PM) Respiratory Rate [16-30 br/min] 18 br/mi n (03/08/22 3:32 PM) Mode of Delivery (Oxygen) Room air (03/08/22 3:32 PM) Blood pressure sites Arm, left (03/08/22 3:32 PM) Dry Weight 83 kg (03/08/22 3:32 PM) Social History Social History Type Response Smoking Status Current every day frank pruitt entered on: 04/09/17 Sex Note * Adam GARCIA, Abhijit Zhou: PERFORM Event Display: Patient Education Leaflets Authored Date: [id number] Depression ?? [id number] Depression Depression is a very common mental [...] medicines you take. This includes prescription and hwub-ayl-vjaneeg medicines. It includes vitamins and herbal supplements. [...] available. Lifeline is free and available 01/09. 362 counselors will work with 911 to help [...] help ?? Last Reviewed Date: 2021 ?? 6283-9767 [employer]. All rights reserved. This information is not intended as a substitute for professional medical care. Always follow your healthcare professional's instructions. ?? Patient Care team information Care Team Personnel Name: Leeann Ambrosio MD Position: [facility] Physician (General Medicine) Member Role: PCP Address: Address: [address] [place] [address] Name: Geovanna Vu MD Position: [facility] TICKET CLERK MD Member Role: Lifetime TICKET CLERK Physician Address: Address: [address] [place] [address] Name: Saige Lacey RN Position: [facility] RN Member Role: Primary Care Nurse Name: Brenda Bear DO Position: [facility] TICKET CLERK MD Member Role: Lifetime TICKET CLERK Physician Address: Address: [address] [place], [place] [address] [place], [place] [address] Name: Abhijit Medina MD Position: [facility] ED Medicine MD Member Role: Admitting Physician Address: Address: [address] [place] [address]- Name: Navin Krause Position: [facility] ED RN W/OE and Tasks Member Role: Patient Care Provider Care Team Related Persons Name: ANJU PADGETT Address: home [address] [place] [address] Name: SHIRLEY HU Address: home [address] [place] [address]
--- OUTSIDE RECORDS SUMMARY | 2022-11-01 00:22 | XMS_ITS | Continuity of Care Document ---
Author Name Unknown Organization [facility] Address [address] [place] [address]- Care Team Providers Care Dumper [employer] Name Role Phone Leeann Ambrosio MD Primary Care Physician [place] [facility] [place](s[place] 02/24/22 - 02/25/[address] [address]- Encounter Diagnosis Depression(Final) - 02/25/22 Discharge Disposition: A-D/C Home Attending Physician: Brain [...] re Active Strattera Active Cymbalta Active Hand Forms Analyst 1 Active ZyPREXA 2 Active 1REACTION - FULL BLOWN ASTHMA ATTACK 2Pt states it gives her a paradoxical reaction. Not true allergy Immunizations Given and Recorded Vaccine Date Status Refusal Reason influenza virus vaccine, inactivated 12/24/11 Give n influenza virus vaccine, inactivated 1 04/12/08 Gi jacobo pneumococcal 23-valent vaccine 12/16/08 Given tetanus-diphtheria toxoids (Td) 10/23/07 Given 1Result Comment: (l) [id number] (3) [id number] Medications Adderall 10 mg oral tablet 2 [...] Maintenance, 02/25/22 16:19:00 EST, Tablet, [facility] #[id number], Partial fill upon patient request if the [...] opioid drug. Start Date: 10/06/21 Status: Ordered Loratadine By Mouth, Daily, 24 hour tablet, this as reported by [...] Range]: 1 2 3 Height 155 cm (02/25/22 2:41 PM) 155 cm (02/25/22 6:45 AM) 155 cm (02/24/22 4:02 PM) Weight 80 kg (02/25/22 2:41 PM) 80 kg (02/25/22 6:45 AM) 80 kg (02/24/22 4:02 PM) Oxygen Saturation [94-100 %] 95 % (02/25/22 6:45 AM) 98 % (02/24/22 4:02 PM) Pulse Rate [55-90 bpm] 90 bpm (02/25/22 6:45 AM) 129 bpm *H* (02/24/22 4:02 PM) Body Mass Index [18.5-24.99 kg/m2] 33.3 kg/m2 *>HHI* (02/25/22 6:45 AM) 33.3 kg/m2 *>HHI* (02/24/22 4:02 PM) Blood Pressure [90-138/55-84 mm Hg] 140/72mm Hg *H* (02/25/22 6:45 AM) 139/109mm Hg *H* (02/24/22 4:02 PM) Respiratory Rate [16-30 br/min] 20 br/min (02/25/22 6:45 AM) 18 br/min (02/25/22 6:12 AM) 16 br/min (02/25/22 3:45 AM) Temperature [96.8-100.4 DegF] 97.6 DegF (02/25/22 6:45 AM) 98.2 DegF (02/24/22 4:02 PM) Mode of Delivery (Oxygen) Room air (02/25/22 6:45 AM) Room air (02/24/22 4:02 PM) Blood pressure sites Arm, right (02/25/22 6:45 AM) Temperature Route Temporal (02/25/22 6:45 AM) Oral (02/24/22 4:02 PM) Dry Weight 80 kg (02/25/22 2:41 PM) 80 kg (02/25/22 6:45 AM) 80 kg (02/24/22 4:02 PM) Weight Obtained Via Patient/family state d (02/24/22 3:56 PM) Dry Weight Obtained Via Patient/family s tated (02/24/22 3:56 PM) Social History Social History Type Response Smoking Status Current every day frank sonal entered on: 04/09/17 Sex Note * Rajni GARCIA [facility]: PERFORM Event Display: Patient Education Leaflets Authored Date: [id number] Depression ?? [id number] Depression Depression is a very common mental [...] medicines you take. This includes prescription and pxpg-ipj-dzwztye medicines. It includes vitamins and herbal supplements. [...] An online chat option is also available. nubelo is free and available 01/09. 988 counselors [...] help ?? Last Reviewed Date: 2021 ?? [phone] [employer]. All rights reserved. This information is not intended as a substitute for professional medical care. Always follow your healthcare professional's instructions. ?? Patient Care team information Care Team Personnel Name: Leeann Ambrosio MD Position: [facility] Physician (General Medicine) Member Role: PCP Address: Address: [address] [place] [address] Name: Geovanna Vu MD Position: [facility] HEAD PORTER BAGGAGE MD Member Role: Lifetime HEAD PORTER BAGGAGE Physician Address: Address: [address] [place] [address]- Name: Saige Lacey RN Position: [facility] RN Member Role: Primary Care Nurse Name: Brenda Bear DO Position: [facility] HEAD PORTER BAGGAGE MD Member Role: Lifetime HEAD PORTER BAGGAGE Physician Address: Address: [address] [place], [place] [address] [place] [address]- Name: Francisco Blanco RN Position: [facility] ED RN W/OE and Tasks Member Role: Patient Care Provider Name: Brain Urban MD Position: [facility] ED Medicine MD Member Role: Admitting Physician Address: Address: [address] [place] [address] [place] [address]- Care Team Related Persons Name: ANJU PADGETT Address: home [address] [place] [address] Name: SHIRLEY HU Address: home [address] [place] [address]
--- OUTSIDE RECORDS SUMMARY | 2022-11-01 00:22 | XMS_ITS | Continuity of Care Document ---
Author Name Unknown Organization [facility] Address [address] [place] [address]- Care Team Providers Care Material Hauler Name Role Phone Leeann Ambrosio MD Primary Care Physician [phone] Encounter [facility] Date(s): 06/24/22 - 06/24/[address] [address]- Discharge Disposition: A-D/C Home Attending Physician: Abhijit [...] re Active Strattera Active Cymbalta Active Hand Commercial Energy Auditor 1 Active ZyPREXA 2 Active Paxlovid Severe Active 1REACTION - FULL BLOWN ASTHMA ATTACK 2Pt states it gives her a paradoxical reaction. Not true allergy Immunizations Given and Recorded Vaccine Date Status Refusal Reason influenza virus vaccine, inactivated 12/24/11 Give n influenza virus vaccine, inactivated 1 04/12/08 Gi jacobo pneumococcal 23-valent vaccine 12/16/08 Given tetanus-diphtheria toxoids (Td) 10/23/07 Given 1Result Comment: (l) [id number] (3 [id number] Medications albuterol CFC free 90 mcg/inh inhalation [...] Maintenance, 02/25/22 16:19:00 EST, Tablet, [facility] #[id number], Partial fill upon patient request if the [...] Refills, Maintenance, 03/01/22 6:53:00 EST, [facility] #[id number], Partial fill upon patient request if the [...] Refills, Maintenance, 03/02/22 14:04:00 EST, [facility] #[id number], Partial... Start Date: 03/02/22 Status: Ordered Zyrtec [...] 1TOLERATES DROPERIDOL 2Problem added by Discern Expert Social History Social History Type Response Smoking Status Current every day frank pruitt entered on: 04/09/17 Sex Hospital Progress note * Zachery GARIBAY, Abbey Andrade: PERFORM, SIGN, VERIFY Event Display: Progress Note Hospital Authored Date: [id number] Patient: TRACY GUTIERREZ Age: 47 years Sex: Female : 1975 Associated Diagnoses: None Author: Abbey Bingham RN Findings Narrative/Incidental Patient was brought in on a section 12 by AGRICULTURAL ECONOMICS PROFESSOR through PD. Patient was calm, cooperative, pleasant states she was trying to call AGRICULTURAL ECONOMICS PROFESSOR, and they wanted to do tele health which she was unable to do on phone, and AGRICULTURAL ECONOMICS PROFESSOR unable to do call in. She states depressed, but not more then usual. States her PCP stopped all of her meds about three weeks ago and she has been feeling really good. Patient looks to behealthy, happy and rested currently. She is clean in appearance and wearing clean clothes. Her bodyis calm, she is not pacing. Her speech is quiet and appropriate. This RN has had many encounters with this patient, and she looks better than I have seen her in a long time. Initial traige was not complete, as MD was in room immediately, section was lifted and patient wanted to leave. Patient did not want to do vitals, did not want to speak to AGRICULTURAL ECONOMICS PROFESSOR tonight, as mentioned she was going to follow up with Becca in the morning. Patient walked calmly and politely to the exit with PD, PD gave safe ride home. . Patient Care team information Care Team Personnel Name: Leeann Ambrosio MD Position: [facility] Physician (General Medicine) Member Role: PCP Address: Address: [address] [place] [address] Name: Geovanna Vu MD Position: [facility] ACADEMIC VICE PRESIDENT MD Member Role: Lifetime ACADEMIC VICE PRESIDENT Physician Address: Address: [address] [place] [address] Name: Saige Lacey RN Position: [facility] RN Member Role: Primary Care Nurse Name: Brenda Bear DO Position: [facility] ACADEMIC VICE PRESIDENT MD Member Role: Lifetime ACADEMIC VICE PRESIDENT Physician Address: Address: [address] [place] [address]- [place] Name: Abhijit Medina MD Position: [facility] ED Medicine MD Member Role: ED Attending Physician Address: Address: [address] [place] [address]- Name: Abbey Bingham RN Position: [facility] ED RN W/OE and Tasks Member Role: Patient Care Provider Care Team Related Persons Name: ANJU PADGETT Address: home [address] [place] [address] Name: SHIRLEY HU Address: home [address] [place] [address]
--- OUTSIDE RECORDS SUMMARY | 2022-11-01 00:22 | XMS_ITS | Continuity of Care Document ---
Author Name Unknown Organization [facility] Address [address] [place] [address]- Care Team Providers Care Marine Habitat Resource Specialist Name Role Phone Leeann Ambrosio MD Primary Care Physician Encounter [facility] [place] Date(s): 10/15/22 - 10/16/[address] [address]- Discharge Disposition: A-D/C Home Attending Physician: Nba Bear DO Admitting Physician: Nba Bear DO Referring Physician: Not on Staff, Referring MD Allergies, Adverse Reactions, Alerts Substance Reaction Severity Status hydrOXYzine Active trazodone-like drugs Active ketamine Active tramadol Active Risperdal Active Singulair Active Imitrex Moderate Active Haldol akathesia Active Latex Active Seafood Throat, Hands, Feet swell Persistent Candice re Active Strattera Active Cymbalta Active Hand Skein Spooler 1 Active ZyPREXA 2 Active Paxlovid Severe Active 1REACTION - FULL BLOWN ASTHMA ATTACK 2Pt states it gives her a paradoxical reaction. Not true allergy Immunizations Given and Recorded Vaccine Date Status Refusal Reason influenza virus vaccine, inactivated 12/24/11 Give n influenza virus vaccine, inactivated 1 04/12/08 Gi jacobo pneumococcal 23-valent vaccine 12/16/08 Given tetanus-diphtheria toxoids (Td) 10/23/07 Given 1Result Comment: (l) [id number] (3) [id number] Medications carbidopa-levodopa 25 mg-100 mg oral tablet [...] oldest [Reference Range]: 1 2 3 Height 149 cm (10/16/22 12:19 PM) 149 cm (10/15/22 10: PM) 149 cm (10/15/22 10: PM) Weight 86 kg (10/16/22 12:19 PM) 86 kg (10/15/22 10: PM) 86 kg (10/15/22 10: PM) Oxygen Saturation [94-100 %] 97 % (10/16/22 12:19 PM) 98 % (10/15/22: PM) Pulse Rate [55-90 bpm] 85 bpm (10/16/22 12:19 PM) 117 bpm *H* (10/15/22 10:22 PM) Body Mass Index [18.5-24.99 kg/m2] 38.74 kg/m2 *>HHI* (10/16/22 12:19 PM) Blood Pressure [90-138/55-84 mm Hg] 122/89mm Hg (10/16/22 12:19 PM) 137/107mm Hg (10/15/22 10:22 PM) Respiratory Rate [16-30 br/min] 16 br/min (10/16/22 12:19 PM) 16 br/min (10/15/22 10:22 PM) Temperature [96.8-100.4 DegF] 98.1 DegF (10/16/22 12:19 PM) 97.2 DegF (10/15/22 10:22 PM) Mode of Delivery (Oxygen) Room air (10/16/22 12:19 PM) Room air (10/15/22 10:22 PM) Blood pressure sites Arm, right (10/16/22 12:19 PM) Arm, left (10/15/22 10:22 PM) Temperature Route Temporal (10/16/22 12:19 PM) Temporal (10/15/22 10:22 PM) Dry Weight 86 kg (10/16/22 12:19 PM) 86 kg (10/15/22 10:26 PM) 86 kg (10/15/22 10:26 PM) Social History Social History Type Response Smoking Status Current every day frank pruitt entered on: 04/09/17 Sex Patient Care team information Care Team Personnel Name: Leeann Ambrosio MD Position: [facility] Physician - Primary Care Member Role: PCP Address: Address: [address] [place] [address] Name: Geovanna Vu MD Position: [facility] HEAD GREASE MAKER MD Member Role: Lifetime HEAD GREASE MAKER Physician Address: Address: [address] [place] [address] Name: Saige Lacey RN Position: [facility] RN Member Role: Primary Care Nurse Name: Brenda Bear DO Position: [facility] HEAD GREASE MAKER MD Member Role: Lifetime HEAD GREASE MAKER Physician Address: Address: [address] [place] [address] [address]- Name: Ml Diallo RN Position: [facility] ED RN W/OE and Tasks Member Role: Patient Care Provider Name: Nba Bear DO Position: [facility] Resident Member Role: Admitting Physician Address: Address: [address] [place] [address] Dept [place] [address]- Care Team Related Persons Name: ANJU PADGETT Address: home [address] [place] [address] Name: SHIRLEY HU Address: home [address] [place] [address]
--- OUTSIDE RECORDS SUMMARY | 2022-11-01 00:22 | XMS_ITS | Continuity of Care Document ---
Author Name Unknown Organization [facility] Address [address] [facility], [address] Floor, [address] [place] [address]- Care Team Providers Care Sheetmetal Patternmaker Name Role Phone Daily GARCIA, Leeann Beltran Primary Care Physician Encounter [facility] [place] Date(s): 03/04/19 - 03/11/19 [facility] [address], [address], [address] [place] [address]- [facility] Attending Physician: Roxanne Chauhan DNP Allergies, Adverse [...] toxoids (Td) 10/23/07 Given 1Result Comment: (l) [id number] (3) [id number] Medications albuterol CFC free 90 mcg/inh inhalation [...] 12/13/18 10:53:39 EST, Route to Pharmacy Electronically, [id number], [facility] - [address] Start [...] 12/13/18 10:56:49 EST, Route to Pharmacy Electronically, [id number], [facility] [address] Start Date: 12/13/18 [...] Gm, 0 Refills, Maintenance, 02/15/19 12:15:00 EST, [facility] [address], Mix asmall [...] 0 Refills, Maintenance, 02/21/19 12:45:00 EST, Ointment, [facility] - [address], 1 application [...]
--- OUTSIDE RECORDS SUMMARY | 2022-11-01 00:23 | XMS_ITS | Continuity of Care Document ---
Author Name Unknown Organization [facility] Address [address] [place] [address]- Care Team Providers Care Supervisor Fertilizer Processing Name Role Phone Leeann Ambrosio MD Primary Care Physician [phone] Encounter [facility] Date(s): 09/16/22 - 09/17/[address] [address]- Encounter Diagnosis Depression(Final) - 09/17/22 Discharge Disposition: A-D/C Home Attending Physician: Kole Garcia DO Admitting Physician: Kole Garcia DO Referring Physician: Not on Staff, Referring MD Allergies, Adverse Reactions, Alerts Substance Reaction Severity Status Latex Active ketamine Active hydrOXYzine Active tramadol Active Risperdal Active trazodone-like drugs Active Singulair Active Imitrex Moderate Active Haldol akathesia Active Strattera Active Cymbalta Active Seafood Throat, Hands, Feet swell Persistent Candice re Active Hand Metalizing Supervisor 1 Active ZyPREXA 2 Active Paxlovid Severe Active 1REACTION - FULL BLOWN ASTHMA ATTACK 2Pt states it gives her a paradoxical reaction. Not true allergy Immunizations Given and Recorded Vaccine Date Status Refusal Reason influenza virus vaccine, inactivated 12/24/11 Give n influenza virus vaccine, inactivated 1 04/12/08 Gi jacobo pneumococcal 23-valent vaccine 12/16/08 Given tetanus-diphtheria toxoids (Td) 10/23/07 Given 1Result Comment: (l) [id number] (3) [id number] Medications Omeprazole 40, By Mouth, 2 times [...] to oldest [Reference Range]: 1 2 Height 154 cm (09/17/22 2:03 AM) 154 cm (09/16/22 11:21 PM) Weight 86 kg (09/17/22 2:03 AM) 86 kg (09/16/22 11:21 PM) Dry Weight 86 kg (09/17/22 2:03 AM) 86 kg (09/16/22 11:21 PM) Social History Social History Type Response Smoking Status Current every day frank pruitt entered on: 04/09/17 Sex Note * Kole Garcia DO D: PERFORM, SIGN, VERIFY Event Display: Patient Education Handout Authored Date: [id number] Patient Care team information Care Team Personnel Name: Leeann Ambrosio MD Position: [facility] Physician - Primary Care Member Role: PCP Address: Address: [address] [place] [address] Name: Geovanna Vu MD Position: [facility] NURSE SCHOOL MD Member Role: Lifetime NURSE SCHOOL Physician Address: Address: [address] [place] [address] Name: Saige Lacey RN Position: [facility] RN Member Role: Primary Care Nurse Name: Brenda Bear DO Position: [facility] NURSE SCHOOL MD Member Role: Lifetime NURSE SCHOOL Physician Address: Address: [address] [place], [place] [address] [address] Name: Antwon Romero RN Position: [facility] ED RN W/OE and Tasks Member Role: Patient Care Provider Name: Kole Garcia DO Position: [facility] ED Medicine MD Member Role: ED Attending Physician Address: Address: [address] [place] [address]- Care Team Related Persons Name: ANJU PADGETT Address: home [address] [place] [address] Name: SHIRLEY HU Address: home [address] [place] [address]
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
--- OUTSIDE RECORDS SUMMARY | 2022-11-01 00:23 | XMS_ITS | Continuity of Care Document ---
Author Name Unknown Organization [facility] Address [address] [place] [address]- Care Team Providers Care Tax Professional Name Role Phone Daily GARCIA, Leeann Beltran Primary Care Physician [place] [facility] Date(s): 05/04/19 - 05/14/19 [facility] [address] [address] [facility] Attending Physician: Admtr, [id number] Admitting Physician: Admtr, [id number] Referring Physician: Admtr, Ar8 Allergies, Adverse Reactions, [...] toxoids (Td) 10/23/07 Given 1Result Comment: (l) [id number] (3) [id number] Medications albuterol CFC free 90 mcg/inh inhalation [...] 12/13/18 10:53:39 EST, Route to Pharmacy Electronically, [id number], [facility] - [address] Start [...] 12/13/18 10:56:49 EST, Route to Pharmacy Electronically, [id number], [facility]- [address] Start Date: [...]
--- OUTSIDE RECORDS SUMMARY | 2022-11-01 00:23 | XMS_ITS | Continuity of Care Document ---
Author Name Unknown Organization [facility] Address [address] [place] [address]- Care Team Providers Care Deer Farm Worker Name Role Phone Leeann mAbrosio MD Primary Care Physician Encounter [facility] Date(s): 06/24/22 - 06/25/[address] [address]- Encounter Diagnosis Suicidal ideation(Final) - 06/25/22 Chronic pain(Final) - 06/25/22 Bipolar disorder(Final) - 06/25/22 Discharge Disposition: A-D/C Home Attending Physician: Damaris Rg MD Admitting Physician: Damaris Rg MD Referring Physician: Not on Staff, Referring MD Allergies, Adverse Reactions, Alerts Substance Reaction Severity Status ketamine Active hydrOXYzine Active tramadol Active trazodone-like drugs Active Singulair Active Risperdal Active Imitrex Moderate Active Haldol akathesia Active Latex Active Seafood Throat, Hands, Feet swell Persistent Candice re Active Strattera Active Cymbalta Active Hand Flight Deck Officer 1 Active ZyPREXA 2 Active Paxlovid Severe Active 1REACTION - FULL BLOWN ASTHMA ATTACK 2Pt states it gives her a paradoxical reaction. Not true allergy Immunizations Given and Recorded Vaccine Date Status Refusal Reason influenza virus vaccine, inactivated 12/24/11 Give n influenza virus vaccine, inactivated 1 04/12/08 Gi ajcobo pneumococcal 23-valent vaccine 12/16/08 Given tetanus-diphtheria toxoids (Td) 10/23/07 Given 1Result Comment: (l) [id number] (3) [id number] Medications Omeprazole 40, By Mouth, 2 times [...] [Reference Range]: 1 2 Height 155 cm (06/25/22 12:51 AM) 155 cm (06/24/22 9:21 PM) Weight 82 kg (06/25/22 12:51 AM) 82 kg (06/24/22 9:21 PM) Oxygen Saturation [94-100 %] 97 % (06/25/22 12:51 AM) Pulse Rate [55-90 bpm] 84 bpm (06/25/22 12:51 AM) Body Mass Index [18.5-24.99 kg/m2] 34.13 kg/m2 *>HHI* (06/25/22 12:51 AM) Respiratory Rate [16-30 br/min] 16 br/mi n (06/25/22 12:51 AM) Mode of Delivery (Oxygen) room air (06/25/22 12:51 AM) Dry Weight 82 kg (06/25/22 12:51 AM) 82 kg (06/24/22 9:21 PM) Social History Social History Type Response Smoking Status Current every day frank pruitt entered on: 04/09/17 Sex Note * Arcenio GARCIA, Damaris: PERFORM Event Display: Patient Education Leaflets Authored Date: [id number] Bipolar Disorder ?? 221119st Bipolar Disorder Bipolar disorder is a serious, [...] your healthcare providers about all the prescriptions, wwva-rwv-nicmhuv medicines, and supplements you take.? ?Certain supplements [...] U.S. Department of Justice has a toll-free ADA information line at 275-543-7348 (voice) or 559-574-2804 (TTY). It can help you find a [...] available. Lifeline is free and available 01/09. 988 counselors will work closely with [facility] to get you the care you need. [...] yourself ?? Last Reviewed Date: 2021 ?? 0746-6010 [employer]. All rights reserved. This information is not intended as a substitute for professional medical care. Always follow your healthcare professional's instructions. ?? Patient Care team information Care Team Personnel Name: Leeann Ambrosio MD Position: [facility] Physician (General Medicine) Member Role: PCP Address: Address: [address] [place] [address] Name: Geovanna Vu MD Position: [facility] TRAM INSPECTOR MD Member Role: Lifetime TRAM INSPECTOR Physician Address: Address: [address] [place] [address] Name: Saige Lacey RN Position: [facility] RN Member Role: Primary Care Nurse Name: Brenda Bear DO Position: [facility] TRAM INSPECTOR MD Member Role: Lifetime TRAM INSPECTOR Physician Address: Address: [address] [place] [address] [address]- Name: Damaris Rg MD Position: [facility] ED Medicine MD Member Role: Admitting Physician Address: Address: [address] [place] [address] Name: Kaela Watt RN Position: [facility] ED RN W/OE and Tasks Member Role: Patient Care Provider Name: Karl Lazcano RN Position: S ED RN W/OE and Tasks Member Role: Patient Care Provider Care Team Related Persons Name: ANJU PADGETT Address: home [address] [place] [address] Name: SHIRLEY HU Address: home [address] [place] [address]
--- OUTSIDE RECORDS SUMMARY | 2022-11-01 00:23 | XMS_ITS | Continuity of Care Document ---
Author Name Unknown Organization [facility] Address [address] [id number]- Care Team Providers Care Lieutenant Governor Name Role Phone Daily GARCIA, Leeann Beltran Primary Care Physician [phone] Encounter [facility] Date(s): 08/23/20 - 09/22/20 [facility] [address] [place] [address]- Allergies, Adverse Reactions, Alerts Substance Reaction Severity Status haloperidol Active diphenhydrAMINE Active hydrOXYzine Active tramadol Active trazodone-like drugs Active Singulair Active Risperdal Active Imitrex Moderate Active Latex Active Seafood Throat, Hands, Feet swell Persistent Candice re Active Cymbalta Active Hand Regional Sales Engineer 1 Active ZyPREXA 2 Active 1REACTION - FULL BLOWN ASTHMA ATTACK 2Pt states it gives her a paradoxical reaction. Not true allergy Immunizations Given and Recorded Vaccine Date Status Refusal Reason influenza virus vaccine, inactivated 12/24/11 Give n influenza virus vaccine, inactivated 1 04/12/08 Gi jacobo pneumococcal 23-valent vaccine 12/16/08 Given tetanus-diphtheria toxoids (Td) 10/23/07 Given 1Result Comment: (l) [id number] (4) [id number] Medications albuterol CFC free 90 mcg/inh inhalation [...]
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
--- OUTSIDE RECORDS SUMMARY | 2022-11-01 00:23 | XMS_ITS | Continuity of Care Document ---
Author Name Unknown Organization [facility] Address [address] [place] [address]- Care Team Providers Care Kelp Or Seagrass Gatherer Name Role Phone Leeann Ambrosio MD Primary Care Physician Encounter [facility] [place] Date(s): 06/27/22 - 06/28/[address] [address]- Discharge Disposition: A-D/C Home Attending Physician: Pradeep Brandt MD Admitting Physician: Pradeep Brandt MD Referring Physician: Not on Staff, Referring MD Allergies, Adverse Reactions, Alerts Substance Reaction Severity Status ketamine Active hydrOXYzine Active tramadol Active trazodone-like drugs Active Singulair Active Risperdal Active Imitrex Moderate Active Haldol akathesia Active Latex Active Seafood Throat, Hands, Feet swell Persistent Candice re Active Strattera Active Cymbalta Active 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 Not true allergy Immunizations Given and Recorded Vaccine Date Status Refusal Reason influenza virus vaccine, inactivated 12/24/11 Give n influenza virus vaccine, inactivated 1 04/12/08 Gi jacobo pneumococcal 23-valent vaccine 12/16/08 Given tetanus-diphtheria toxoids (Td) 10/23/07 Given 1Result Comment: (l) [id number] (3) [id number] Medications Omeprazole 40, By Mouth, 2 times a day, 0 Refills, Maintenance, 10/10/18 22:49:16 EDT Start Date: 10/10/18 Status: Ordered ondansetron 8 mg oral tablet, disintegrating dissolve 1 tablet ON TONGUE every 8 hours if needed Start Date: 12/25/21 Status: Ordered predniSONE 20 mg oral tablet 2 tablet = 40 mg, By Mouth, Daily, for 4 days, # 8 tablet, 0 Refills, Acute 07/02/22 14:43:00 EDT, 06/28/22 14:43:00 EDT, [facility] #[id number], Partial fill upon patient request if the prescription is fora schedule II opioid drug., 158, cm, 06/27/22 20:57... Start Date: 06/28/22 Stop Date: 07/02/22 Status: Ordered Zyrtec 10 mg oral tablet [...] 1TOLERATES DROPERIDOL 2Problem added by Discern Expert Results Radiology Reports * Exam Date Time Procedure Performing Provider Status 06/27/22 9:42 PM Chest Portable Landen Albarado; Auth (V erified) Notes: (Chest Portable) Reason For Exam: Shortness of Breath RESULT: Chest Portable Chest Portable Hx of Present Illness: SI with plan, sectioned by SWITCHING CLERK from the community. Presented voluntarily with coaching from SWITCHING CLERK via phone.; Reason: Shortness of Breath; Clinical Question(s): CHF COMPARISON: 06/14/2021 FINDINGS: LINES AND TUBES: None. LUNGS AND PLEURA: Clear lungs. Normal pulmonary vascularity. No pleural effusion. No pneumothorax. HEART, MEDIASTINUM AND ROBERTO: Heart is normal in size. Normal mediastinal and hilar contour. BONES AND SOFT TISSUES: Chronic fractures noted in the right chest similar to previous exam. IMPRESSION: No acute abnormality. WSN: [id number] Ordering Physician: Timothy Johnson Dictated By: Joon Samuels MD Dictated Date/Time: 06/27/22 9:58 pm Reviewed By: Joon Samuels MD Signed By: Joon Samuels MD Signed Date/Time: 06/27/22 9:58 pm Transcribed By: BARB Transcribed Date/Time: 06/27/22 9:57 pm Vital Signs Most recent to oldest [Reference Range]: 1 2 3 Height 158 cm (06/27/22 8:57 PM) Weight 84 kg (06/27/22 8:57 PM) Oxygen Saturation [94-100 %] 97 % (06/28/22 3:41 PM) 96 % (06/27/22 11:00 PM) 95 % (06/27/22 8:56 PM) Pulse Rate [55-90 bpm] 86 bpm (06/28/22 3:41 PM) 90 bpm (06/27/22 11:00 PM) 115 bpm *H* (06/27/22 8:56 PM) Blood Pressure [90-138/55-84 mm Hg] 138/94mm Hg (06/28/22 3:41 PM) 130/90mm Hg (06/27/22 11:00 PM) 142/111mm Hg *H* (06/27/22 8:56 PM) Respiratory Rate [16-30 br/min] 18 br/min (06/28/22 3:41 PM) 20 br/min (06/27/22 11:00 PM) 20 br/min (06/27/22 8:56 PM) Temperature [96.8-100.4 DegF] 97.5 DegF (06/28/22 3:41 PM) 98.8 DegF (06/27/22 8:56 PM) Mode of Delivery (Oxygen) Room air (06/28/22 3:41 PM) Room air (06/27/22 11:00 PM) Room air (06/27/22 8:56 PM) Blood pressure sites Arm, right (06/27/22 11:00 PM) Arm, right (06/27/22 8:56 PM) Temperature Route Temporal (06/28/22 3:41 PM) Temporal (06/27/22 8:56 PM) Dry Weight 84 kg (06/27/22 8:57 PM) Weight Obtained Via Patient/family state d (06/27/22 8:57 PM) Dry Weight Obtained Via Patient/family s tated (06/27/22 8:57 PM) Social History Social History Type Response Smoking Status Current every day frank pruitt entered on: 04/09/17 Sex Note * Pradeep Brandt MD: PERFORM, SIGN, VERIFY Event Display: Patient Education Handout Authored Date: * Pradeep Brandt MD: PERFORM Event Display: Patient Education Leaflets Authored Date: [id number] Depression ?? [id number] Depression Depression is a very common mental [...] medicines you take. This includes prescription and kghk-oko-bznprhy medicines. It includes vitamins and herbal supplements. [...] An online chat option is also available. Epic Sciencesline is free and available 01/09. 988 counselors will work with 1 to help you get the care you [...] help ?? Last Reviewed Date: 2021 ?? [employer]. All rights reserved. This information is not intended as a substitute for professional medical care. Always follow your healthcare professional's instructions. ?? * Rikki GARCIA, Pradeep Del Rosario: PERFORM Event Display: Patient Education Leaflets Authored Date: [id number] Prednisone Oral Tablet ?? [id number] Prednisone Oral Tablet Brands: Deltasone Uses This medicine is used for the following purposes: ??? allergic reaction ??? autoimmune disorder ???blood disorder ??? endocrine disorder ??? inflammatory disease ??? immune suppression ??? cancer ??? COVID-19 (coronavirus) ?? Instructions Take the medicine with food. Store at room temperature away from heat, light, and moisture. Do not keep in the bathroom. It is important that you keep taking each dose of this medicine on time even if you are feeling well. If you forget to take a dose on time, take it as soon as you remember. If it is almost time for thenext dose, do not take the missed dose. Return to your normal schedule. Do not take 2 doses at one time. Drug interactions can change how medicines work or increase risk for side effects. Tell your healthcare providers about all medicines taken. Include prescription and nfmn-ddh-vkepgjf medicines, vitamins, and herbal medicines. Speak with your doctor or pharmacist before starting or stopping any medicine. Tell your doctor if symptoms do not get better or if they get worse. This medicine may affect your blood sugar levels. If you have diabetes, talk to your doctor before changing the dose of your diabetes medicine. This medicine may affect the strength of your bones. If you have or are at increased risk for osteoporosis (weakening of the bones), your doctor may recommend foods with calcium and vitamin D. Keep all appointments for medical exams and tests while on this medicine. ?? Cautions Tell your doctor and pharmacist if you ever had an allergic reaction to a medicine. This medicine may cause serious bleeding from the stomach or bowels. Stop this medicine and call your doctor immediately if you see any signs of bleeding. Bleeding can cause pain in the stomach, vomiting up liquid that looks like coffee grounds, and red or dark tarry stools. Do not use the medication any more than instructed. Please check with your doctor before drinking alcohol while on this medicine. Avoid smoking while on this medicine. Smoking may increase your risk for stomach bleeding. This medicine may reduce your body's ability to fight infections. Avoid contact with people with colds, flu or other infections. Contact your doctor if you develop fever, cough, sore throat, or chills. Speak with your health care provider before receiving any vaccinations. This medicine passes into breast milk. Ask your doctor before . During , this medicine should be used only when clearly needed. Talk to your doctor about the risks and benefits. Always carry an ID card or wear a medical alert bracelet indicating your medical condition. Do not share this medicine with anyone who has not been prescribed this medicine. ?? Side Effects The following is a list of some common side effects from this medicine. Please speak with your doctor about what you should do if you experience these or other side effects. ??? acne ??? agitated feeling or trouble sleeping ??? decreased appetite ??? high blood sugar ??? high blood pressure ??? nausea and vomiting ??? stomach upset or abdominal pain Call your doctor or get medical help right away if you notice any of these more serious side effects: ??? bleeding or bruising ??? bone pain ??? coughing up blood or vomit that looks like coffee grounds ??? depression or feeling sad ??? swelling of the legs, feet, and hands ??? fever or chills ??? fast or irregular heart beats ??? menstruation changes (missed or fewer periods) ??? mood changes ??? muscle pain or cramps ??? seizures ??? thinning of the skin ??? severe stomach or bowel pain ??? dark, tarry stool ??? unusual or unexplained tiredness or weakness ??? increased urinary frequency ??? blurring or changes of vision ??? sudden or unexplained weight gain ??? slow wound healing A few people may have an allergic reaction to this medicine. Symptoms can include difficulty breathing, skin rash, itching, swelling, or severe dizziness. If you notice any of these symptoms, seek medical help quickly. ?? Extra Please speak with your doctor, nurse, or pharmacist if you have any questions about this medicine. ?? [email or web address] IMPORTANT NOTE: This document tells you briefly how to take your medicine, but it does not tell youall there is to know about it. Your doctor or pharmacist may give you other documents about your medicine. Please talk to them if you have any questions. Always follow their advice. There is a more complete description of this medicine available in [place]. Scan this code on your smartphone or tablet or use the web address below. You can also ask your pharmacist for a printout. If you have any questions, please ask your pharmacist. The display and use of this drug information is subject to Terms of Use. Copyright(c) 2022 [employer]. ?? [employer]. All rights reserved. This information is not intended as a substitute for professional medical care. Always follow your healthcare professional's instructions. ?? * Rikki GARCIA, Pradeep Del Rosario: PERFORM Event Display: Patient Education Leaflets Authored Date: Asthma (Adult) ?? [id number] Asthma (Adult) Asthma is a disease where the medium and??small air passages in the lung go into spasm. This limitsair flow. Inflammation and swelling of the airways cause more blockage. During an acute asthma attack, these things cause trouble breathing, wheezing, coughing, and chest tightness. An asthma attack can be triggered by many things. Common triggers include infections such as the common cold, bronchitis, and pneumonia. Irritants such as smoke or pollutants in the air, very cold air, strong emotions, and exercise can also trigger an attack. In??many adults with asthma, allergies to??dust, mold, pollen, and animal dander can cause an asthma attack. Skipping doses of daily asthmamedicine can also bring on an asthma attack. Asthma can be controlled using the??correct medicines prescribed by your healthcare provider. You can also control it by staying away from known triggers including allergens and irritants. Home care ??? Take prescribed medicine exactly as advised. Ask your healthcare team for help if youhave questions about how to use your inhaler or nebulizer. ??? Call your provider or get medical care right away if you need quick-relief medicine such as from an inhaler or aerosol breathing machine(nebulizer) more often than prescribed.. ??? If you are prescribed an antibiotic or the steroid prednisone, take all of the medicine as prescribed. Keep taking it even if you are feeling better aftera few days. ??? Don't smoke. Ask your provider for resource, such as organizations and websites to help you quit. Stay away from the smoke of others. Don't let anyone smoke in your home, in your car,or around you. Also don't use e-cigarettes. ??? Some people with asthma find their symptoms get worse when they take aspirin and nonsteroidal anti-inflammatory drugs (NSAIDs) or fever-reducing medicines such as ibuprofen and naproxen. Talk with your provider if you think this may apply to you. ??? Stay away from your asthma triggers. ?? Follow-up care Follow up with your healthcare provider, or as advised. Always bring all of your current medicines to any appointments with your provider. Also bring a complete list of medicines, even??those you take for other conditions. Bring your Asthma Action Plan to all appointments. If you don't have one, talk with your provider about making your own Asthma Action Plan. Get the COVID-19 vaccine, pneumonia (pneumococcal)??vaccine, and yearly flu shot (every fall). Ask your provider about this. ?? When to get medical care Call your healthcare provider right away if any of these occur:? More wheezing or shortness ofbreath ??? Waking up at night because of asthma symptoms ??? Need to use your quick-relief inhaler more often than normal without relief ??? Fever of 100.4??F (38??C) or higher, or as advised by yourprovider ??? Coughing up lots of dark-colored or bloody sputum (mucus) ??? Chest pain with each breath ??? If you use a peak flow meter as part of an Asthma Action Plan, and you are still in the yellow zone (50% to 79% of personal best) 15 minutes after using quick-relief inhaler medicine. ?? Call 911 Call 911 right away if any of these occur: ??? Trouble walking or talking because you're short of breath ??? If you use a peak flow meter as part of an Asthma Action Plan, and??you are still in the red zone (less than 50% of personal best) 15 minutes after using quick-relief inhaler medicine ??? Lips or fingernails turn schreiber, purple, or blue ??? Feeling faint or loss of consciousness ?? Last Reviewed Date: 2021 ?? 6313-5188 [employer]. All rights reserved. This information is not intended as a substitute for professional medical care. Always follow your healthcare professional's instructions. ?? Portable XR Chest Views * BHSPowerscribe , CIS S: TRANSCRIBE Joon Samuels MD S: VERIFY Event Display: Result: Authored Date: [id number] Chest Portable Hx of Present Illness: SI with plan, sectioned by SWITCHING CLERK from the community. Presented voluntarily with coaching from SWITCHING CLERK via phone.; Reason: Shortness of Breath; Clinical Question(s): CHF COMPARISON: 06/14/2021 FINDINGS: LINES AND TUBES: None. LUNGS AND PLEURA: Clear lungs. Normal pulmonary vascularity. No pleural effusion. No pneumothorax. HEART, MEDIASTINUM AND ROBERTO: Heart is normal in size. Normal mediastinal and hilar contour. BONES AND SOFT TISSUES: Chronic fractures noted in the right chest similar to previous exam. IMPRESSION: No acute abnormality. WSN: [id number] Ordering Physician: Timothy Johnson Dictated By: Joon Samuels MD Dictated Date/Time: 06/27/22 9:58 pm Reviewed By: Joon Samuels MD Signed By: Joon Samuels MD Signed Date/Time: 06/27/22 9:58 pm Transcribed By: BARB Transcribed Date/Time: 06/27/22 9:57 pm Patient Care team information Care Team Personnel Name: Leeann Ambrosio MD Position: [facility] Physician (General Medicine) Member Role: PCP Address: Address: [address] [place] [address] [place] [address]- Name: Geovanna Vu MD Position: [facility] PHOTO STUDIO ASSISTANT MD Member Role: [employer] PHOTO STUDIO ASSISTANT Physician Address: Address: [address] [place] [address]- Name: Saige Lacey RN Position: [facility] RN Member Role: Primary Care Nurse Name: Brenda Bear DO Position: [facility] PHOTO STUDIO ASSISTANT MD Member Role: [employer] PHOTO STUDIO ASSISTANT Physician Address: Address: [address] [place] [address] [address]- Name: Pradeep Brandt MD Position: [facility] ED Medicine MD Member Role: Admitting Physician Address: Address: [address] [place] [address] [place] [address]- Name: Romy Aranda RN Position: [facility] ED RN W/OE and Tasks Member Role: Patient Care Provider Care Team Related Persons Name: ANJU PADGETT Address: home [address] [place] [address] Name: SHIRLEY HU Address: [address] [place] [address]
--- OUTSIDE RECORDS SUMMARY | 2022-11-01 00:23 | XMS_ITS | Continuity of Care Document ---
Author Name Unknown Organization [facility] Address [address] [place] [address]- Care Team Providers Care Print Production Manager Name Role Phone Leeann Ambrosio MD Primary Care Physician [place] [facility] [place] - 07/28/[address] [address]- Discharge Disposition: A-D/C AMA Attending Physician: Damaris Rg MD Admitting Physician: Damaris Rg MD Referring Physician: Not on Staff, Referring MD Allergies, Adverse Reactions, Alerts Substance Reaction Severity Status haloperidol Active diphenhydrAMINE Active hydrOXYzine Active tramadol Active trazodone-like drugs Active Singulair Active Risperdal Active Imitrex Moderate Active Latex Active Seafood Throat, Hands, Feet swell Persistent Candice re Active Cymbalta Active 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 Not true allergy Immunizations Given and Recorded Vaccine Date Status Refusal Reason influenza virus vaccine, inactivated 12/24/11 Give n influenza virus vaccine, inactivated 1 04/12/08 Gi jacobo pneumococcal 23-valent vaccine 12/16/08 Given tetanus-diphtheria toxoids (Td) 10/23/07 Given 1Result Comment: (l) [id number] Medications albuterol CFC free 90 mcg/inh inhalation [...] 22:49:16 EDT Start Date: 10/10/18 Status: Ordered OxyCODONE IR Tablet 10 mg, Tablet, By Mouth, Once, STAT, 07/28/20 0:48:00 EDT, Stop date 07/28/20 0:48:00 EDT Start Date: 07/28/20 Stop Date: 07/28/20 Status: Completed Zofran 8 mg oral tablet [...] [Reference Range]: 1 2 Height 155 cm (07/28/20 12:58 AM) 155 cm (07/28/20 12:35 AM) Weight 87 kg (07/28/20 12:58 AM) 87 kg (07/28/20 12:35 AM) Oxygen Saturation [94-100 %] 97 % (07/28/20 12:58 AM) Pulse Rate [55-90 bpm] 44 bpm *L* (07/28/20 12:58 AM) Body Mass Index [18.5-24.99] 36.21 *>HHI* (07/28/20 12:58 AM) Blood Pressure [90-138/55-84 mm Hg] 114/ 56mm Hg (07/28/20 12:58 AM) Respiratory Rate [16-30 br/min] 18 br/mi n (07/28/20 1:02 AM) 14 br/min *L* (07/28/20 12:58 AM) Temperature [96.8-100.4 DegF] 96.8 DegF (07/28/20 12:58 AM) Temperature Route Oral (07/28/20 12:58 AM) Dry Weight 87 kg (07/28/20 12:58 AM) 87 kg (07/28/20 12:35 AM) Weight Obtained Via Patient/family state d (07/28/20 12:35 AM) Social History Social History Type Response Smoking Status Current every day frank pruitt entered on: 04/09/17 Sex
--- OUTSIDE RECORDS SUMMARY | 2022-11-01 00:23 | XMS_ITS | Continuity of Care Document ---
Author Name Unknown Organization [facility] Address [address] [place] [address]- Care Team Providers Care Space Buyer Name Role Phone Leeann Ambrosio MD Primary Care Physician Encounter [facility] [place] Date(s): 04/22/22 - 04/22/[address] [address]- Encounter Diagnosis Depression(Final) - 04/22/22 Medication overdose(Final) - 04/22/22 Discharge Disposition: A-D/C Home Attending Physician: Nba [...] re Active Strattera Active Cymbalta Active Hand Chemical Worker 1 Active ZyPREXA 2 Active Paxlovid Severe Active 1REACTION - FULL BLOWN ASTHMA ATTACK 2Pt states it gives her a paradoxical reaction. Not true allergy Immunizations Given and Recorded Vaccine Date Status Refusal Reason influenza virus vaccine, inactivated 12/24/11 Give n influenza virus vaccine, inactivated 1 04/12/08 Gi jacobo pneumococcal 23-valent vaccine 12/16/08 Given tetanus-diphtheria toxoids (Td) 10/23/07 Given 1Result Comment: (l) [id number] 3) [id number] Medications Adderall 10 mg oral tablet 2 [...] Maintenance, 02/25/22 16:19:00 EST, Tablet, [facility] #[id number], Partial fill upon patient request if the [...] Refills, Maintenance, 03/01/22 6:53:00 EST, [facility] #[id number], Partial fill upon patient request if the [...] Refills, Maintenance, 03/02/22 14:04:00 EST, [facility] #[id number], Partial... Start Date: 03/02/22 Status: Ordered Zyrtec [...] [Reference Range]: 1 2 Height 155 cm (04/22/22 8:20 AM) 155 cm (04/22/22 1:48 AM) Weight 79.5 kg (04/22/22 8:20 AM) 79.5 kg (04/22/22 1:48 AM) Oxygen Saturation [94-100 %] 96 % (04/22/22 8:20 AM) 98 % (04/22/22 1:48 AM) Pulse Rate [55-90 bpm] 119 bpm *H* (04/22/22 8:20 AM) 85 bpm (04/22/22 1:48 AM) Body Mass Index [18.5-24.99 kg/m2] 33.09 kg/m2 *>HHI* (04/22/22 8:20 AM) Blood Pressure [90-138/55-84 mm Hg] 152/ 107mm Hg *H* (04/22/22 8:20 AM) 147/101mm Hg *H* (04/22/22 1:48 AM) Respiratory Rate [16-30 br/min] 18 br/mi n (04/22/22 8:20 AM) 16 br/min (04/22/22 1:48 AM) Temperature [96.8-100.4 DegF] 98.2 DegF (04/22/22 8:20 AM) Mode of Delivery (Oxygen) Room air (04/22/22 8:20 AM) Room air (04/22/22 1:48 AM) Blood pressure sites Arm, right (04/22/22 8:20 AM) Temperature Route Temporal (04/22/22 8:20 AM) Dry Weight 79.5 kg (04/22/22 8:20 AM) 79.5 kg (04/22/22 1:48 AM) Social History Social History Type Response Smoking Status Current every day frank pruitt entered on: 04/09/17 Sex Patient Care team information Care Team Personnel Name: Leeann Ambrosio MD Position: [facility] Physician (General Medicine) Member Role: PCP Address: Address: [address] [place] [address] Name: Geovanna Vu MD Position: [facility] CARDIAC MONITOR Member Role: [employer] CARDIAC MONITOR Physician Address: Address: [address] [place], [place] [id number]- Name: Saige Lacey RN Position: [facility] RN Member Role: Primary Care Nurse Name: Brenda Bear DO Position: [facility] CARDIAC MONITOR MD Member Role: [employer] CARDIAC MONITOR Physician Address: Address: [address] [place], [place] [address] [place] [address]- Name: Bernadette Cuellar RN Position: [facility] ED RN W/OE and Tasks Member Role: Patient Care Provider Name: Nba Bear DO Position: [facility] Resident Member Role: Admitting Physician Address: Address: [address] [place] [address] Dept [place] [address]- Care Team Related Persons Name: ANJU PADGETT Address: home [address] [place] [address] Name: SHIRLEY HU Address: [address] [place] [address]
--- OUTSIDE RECORDS SUMMARY | 2022-11-01 00:23 | XMS_ITS | Continuity of Care Document ---
Author Name Unknown Organization [facility] Address [address] [place] [address]- Care Team Providers Care Cloth Desizing Range Tender Name Role Phone Leeann Ambrosio MD Primary Care Physician [place] [facility] [place] 07[place]12/[place] [facility] [address] [id number]- Attending Physician: Brenda Bear DO Admitting Physician: Brenda Bear DO Referring Physician: Leeann Ambrosio MD Allergies, Adverse Reactions, Alerts Substance Reaction [...] influenza virus vaccine, inactivated 1 04/12/08 Gi jacoob pneumococcal 23-valent vaccine 12/16/08 Given tetanus-diphtheria toxoids (Td) 10/23/07 Given 1Result Comment: (l) [id number] (3) [id number] Medications acetaminophen 500 mg oral tablet 2 [...] the prescrip... Start Date: 07/12/20 Status: Ordered ibuprofen 800 mg oral tablet [...] Date: 07/11/20 Stop Date: 07/16/20 Status: Ordered Zofran 8 mg oral tablet [...] oldest [Reference Range]: 1 Height 155 cm (07/05/20 1:17 PM) Weight 86.9 kg (07/05/20 1:17 PM) Body Mass Index [18.5-24.99] 36.17 *>HHI* (07/05/20 1:17 PM) Weight Obtained Via Standing scale (07/05/20 1:17 PM) Social History Social History Type Response Smoking Status Current every day frank pruitt entered on: 04/09/17 Sex
--- OUTSIDE RECORDS SUMMARY | 2022-11-01 00:23 | XMS_ITS | Continuity of Care Document ---
Author Name Unknown Organization [facility] Address [address] [place] [address]- Care Team Providers Care Rail Project Engineer Name Role Phone Daily GARCIA, Leeann Beltran Primary Care Physician Encounter [facility] [place] Date(s): 09/01/19 - 10/01/[address] [address]- [facility] Allergies, Adverse Reactions, Alerts Substance Reaction Severity Status haloperidol Active hydrOXYzine Active Singulair Active Imitrex Moderate Active Latex Active Seafood Throat, Hands, Feet swell Persistent Candice re Active Cymbalta Active ZyPREXA Active Risperdal Active tramadol Active Immunizations Given and Recorded Vaccine Date Status Refusal Reason influenza virus vaccine, inactivated 12/24/11 Give n influenza virus vaccine, inactivated 1 04/12/08 Gi jacobo pneumococcal 23-valent vaccine 12/16/08 Given tetanus-diphtheria toxoids (Td) 10/23/07 Given 1Result Comment: (l) [id number] (5) [id number] Medications albuterol CFC free 90 mcg/inh inhalation aerosol 180 mcg, 2, puffs, Inhalation, Every 4 hours, PRN, Refills 0, Maintenance, 12/13/18 10:52:33 EST, Inhaler Start Date: 12/13/18 Status: Ordered atomoxetine 18 mg oral capsule 1 capsule = 18 mg, By Mouth, Daily in AM, 0 Refills, Maintenance, 12/01/18 0:38:40 EDT Start Date: 12/01/18 Status: Ordered buprenorphine 7.5 mcg/hr transdermal film, extended release 1 patch, Topically, 0 Refills, Maintenance, 08/09/19 14:41:00 EDT Start Date: 08/09/19 Status: Ordered clobetasol 0.05% topical ointment 1 [...] 12/13/18 10:53:39 EST, Route to Pharmacy Electronically, [id number], [facility] - [address] Start [...] 12/13/18 10:56:49 EST, Route to Pharmacy Electronically, [id number], [facility]- [address] Start Date: 12/13/18 Status: Ordered metoprolol 50 [...]
--- OUTSIDE RECORDS SUMMARY | 2022-11-01 00:23 | XMS_ITS | Continuity of Care Document ---
Author Name Unknown Organization [facility] Address [address] [place] [address]- Care Team Providers Care City Alderman Name Role Phone Daily GARCIA, Leeann Beltran Primary Care Physician Encounter [facility] NBR [id number] Date(s): 07/27/20 - 10/04/20 [facility] [address] [place] [address]- Attending Physician: Madelyn Branch MD Admitting Physician: Madelyn Branch MD Allergies, Adverse Reactions, Alerts Substance Reaction Severity Status haloperidol Active diphenhydrAMINE Active hydrOXYzine Active tramadol Active trazodone-like drugs Active Singulair Active Risperdal Active Imitrex Moderate Active Latex Active Seafood Throat, Hands, Feet swell Persistent Candice re Active Cymbalta Active Hand Child Support Case Officer 1 Active ZyPREXA 2 Active 1REACTION - FULL BLOWN ASTHMA ATTACK 2Pt states it gives her a paradoxical reaction. Not true allergy Immunizations Given and Recorded Vaccine Date Status Refusal Reason influenza virus vaccine, inactivated 12/24/11 Give n influenza virus vaccine, inactivated 1 04/12/08 Gi jacobo pneumococcal 23-valent vaccine 12/16/08 Given tetanus-diphtheria toxoids (Td) 10/23/07 Given 1Result Comment: (l) [id number] (1) [id number] Medications albuterol CFC free 90 mcg/inh inhalation [...] Pharmacy Electronically, [facility] [address] , Partial fill [...]
--- OUTSIDE RECORDS SUMMARY | 2022-11-01 00:23 | XMS_ITS | Continuity of Care Document ---
Author Name Unknown Organization [facility] Address [address] [facility], [address] Floor, [address] [place] [address]- Care Team Providers Care Composition Floor Layer Name Role Phone Daily GARCIA, Leeann Beltran Primary Care Physician [place] [facility] [place]s): 05/19/19 - 05/29/19 [facility] [address] [facility], 3rd Floor, [address] [place] [address]- [facility] Attending Physician: Admtr, Ar8 Admitting Physician: Admtr, Ar8 Referring Physician: Admtr, Ar8 Allergies, Adverse Reactions, Alerts Substance Reaction Severity Status haloperidol Active tramadol Active Risperdal Active Imitrex Moderate Active Seafood Throat, Hands, Feet swell Persistent Candice re Active ZyPREXA Active hydrOXYzine Active Singulair Active Latex Active Cymbalta Active Immunizations Given and Recorded Vaccine Date Status Refusal Reason influenza virus vaccine, inactivated 12/24/11 Give n influenza virus vaccine, inactivated 1 04/12/08 Gi jacobo pneumococcal 23-valent vaccine 12/16/08 Given tetanus-diphtheria toxoids (Td) 10/23/07 Given 1Result Comment: (l) [id number] (2) [id number] Medications albuterol CFC free 90 mcg/inh inhalation [...] 12/13/18 10:53:39 EST, Route to Pharmacy Electronically, [id number], [facility] - [address] Start [...] 12/13/18 10:56:49 EST, Route to Pharmacy Electronically, [id number], [facility]- [address] Start Date: [...]
--- NOTE | 2022-11-01 00:24 | ED_ITS ---
HPI - Psych General Chief Complaint: Psychiatric Symptoms Stated Complaint: SI Time Seen by Provider: 11/01/22 00:06 Source: EMS Mode of arrival: ambulatory Limitations: altered mental status History of Present Illness HPI Narrative: Patient comes to the emergency by ambulance from [facility]. Patient was transferred from [place] To [facility]. Prior to leaving [facility], patient was given Haldol and Ativan to ease the transfer because the patient was very combative. When EMS arrived to [facility], the staff said that the patient was too sedated and refused to accept the patient and told him to bring the patient to the emergency room in [place]. Patient is too somnolent to give any history. Related Data Home Medications Medication Instructions Recorded Confirmed albuterol sulfate 90 mcg/actuation 2 puff inhalation Q4H PRN dyspnea 11/01/22 11/01/22 aerosol inhaler carbidopa 25 mg-levodopa 100 mg 1 tab PO BID 11/01/22 11/01/22 tablet ibuprofen 800 mg tablet 800 mg PO Q8H 11/01/22 11/01/22 lorazepam 2 mg tablet 2 mg PO DAILY PRN anxiety 11/01/22 11/01/22 ondansetron 8 mg disintegrating 8 mg PO TID PRN Nausea And Vomiting 11/01/22 11/01/22 tablet sucralfate 1 gram tablet 1 g PO QID 11/01/22 11/01/22 Allergies Allergy/AdvReac Type Severity Reaction Status Date / Time atomoxetine Allergy Unknown Verified 08/10/19 00:00 duloxetine [Cymbalta] Allergy Unknown Verified 08/10/19 00:00 gabapentin Allergy Unknown Verified 08/10/19 00:00 haloperidol [Haldol] Allergy Unknown Verified 08/10/19 00:00 latex [LATEX] Allergy Unknown RASH Unverified 10/27/19 18:15 montelukast [Singulair] Allergy Unknown Verified 08/10/19 00:00 olanzapine [Zyprexa] Allergy Unknown Verified 08/10/19 00:00 risperidone [From RISPERDAL] Allergy Unknown UNKNOWN Unverified 10/27/19 18:15 shellfish derived Allergy Unknown UNKNOWN Unverified 10/27/19 18:15 sumatriptan [From IMITREX] Allergy Unknown UNKNOWN Unverified 10/27/19 18:15 tramadol Allergy Unknown Verified 08/10/19 00:00 trazodone Allergy Unknown Verified 08/10/19 00:00 Benadryl Allergy Unknown Uncoded 08/10/19 00:00 From CYMBALTA Allergy Unknown UNKNOWN Uncoded 10/27/19 18:15 From IMITREX Allergy Unknown UNKNOWN Uncoded 10/27/19 18:15 SEAFOOD Allergy Unknown UNKNOWN Uncoded 10/27/19 18:15 Review of Systems Review of Systems: Yes Unobtainable due to mental status [facility] Social History Social History Advance Directives: No Advance Directives Information Provided: Yes Physical Exam Vital Signs: Vital Signs: Last Vital Signs Temp 97.6 F 10/31/22 23:55 Pulse 87 10/31/22 23:55 Resp 17 10/31/22 23:55 BP 119/92 H 10/31/22 23:55 Pulse Ox 95 10/31/22 23:55 O2 Del Method Room Air 10/31/22 23:55 BMI result Body Mass Index 33.3 Const: Other: Appearance: Somnolent, arousable but falls back asleep Eyes: Pupils equal, round and reactive to light. ENT: Pharynx normal. Neck: Normal inspection. Neck supple. No lymph nodes noted. No crepitus CVS: Normal heart rate and rhythm. Pulses normal. Normal S1 and S2 Respiratory: No respiratory distress. Breath sounds normal. No Wheezing. No rales Abdomen: Soft and nontender. No rigidity. No distention. Skin: Skin warm and dry. Normal skin color. Normal skin turgor. Extremities: No lower extremity edema. No Lacerations. No Rash Neuro: too somnolent to participating cranial nerve assessment Psych: very somnolent Course Course Course Narrative: - we will start the process over again - vital stable, all of patient's labs pending - care team consult pending - physician observation started at 00:30 - sign-out given to Dr Stubbs Discharge Plan Discharge Clinical Impression: Post traumatic stress disorder, MDD (major depressive disorder), Borderline personality disorder Patient Disposition: Still a Patient Prescriptions: No Action ondansetron 8 mg tablet,disintegrating 8 mg PO TID PRN (Reason: Nausea And Vomiting) lorazepam 2 mg tablet 2 mg PO DAILY PRN (Reason: anxiety) albuterol sulfate 90 mcg/actuation HFA aerosol inhaler 2 puff INHALATION Q4H PRN (Reason: dyspnea) carbidopa-levodopa 25-100 mg tablet 1 tab PO BID ibuprofen 800 mg tablet 800 mg PO Q8H sucralfate 1 gram tablet 1 g PO QID
--- OUTSIDE RECORDS SUMMARY | 2022-11-01 00:24 | XMS_ITS | Continuity of Care Document ---
Author Name Unknown Organization [facility] Address [address] [place] [address]- Care Team Providers Care Electro Plater Name Role Phone Leeann Ambrosio MD Primary Care Physician Encounter [facility] [place] Date(s): 07/09/21 - 07/11/[address] [address]- Encounter Diagnosis Depression(Final) - 07/11/21 Discharge Disposition: A-D/C Home Attending Physician: Olena Flaherty MD Admitting Physician: Olena Flaherty MD Referring Physician: Not on Staff, Referring MD Allergies, Adverse Reactions, Alerts Substance Reaction Severity Status diphenhydrAMINE Active hydrOXYzine Active tramadol Active trazodone-like drugs Active Singulair Active Risperdal Active Imitrex Moderate Active Latex Active Seafood Throat, Hands, Feet swell Persistent Candice re Active Strattera Active Cymbalta Active Hand Physician Office Assistant 1 Active ZyPREXA 2 Active 1REACTION - FULL BLOWN ASTHMA ATTACK 2Pt states it gives her a paradoxical reaction. Not true allergy Immunizations Given and Recorded Vaccine Date Status Refusal Reason influenza virus vaccine, inactivated 12/24/11 Give n influenza virus vaccine, inactivated 1 04/12/08 Gi jacobo pneumococcal 23-valent vaccine 12/16/08 Given tetanus-diphtheria toxoids (Td) 10/23/07 Given 1Result Comment: (l) [id number] (3) [id number] Medications albuterol CFC free 90 mcg/inh inhalation [...] Range]: 1 2 3 Height 155 cm (07/11/21 4:56 AM) 155 cm (07/10/21 6:11 AM) 155 cm (07/09/21 7:33 AM) Weight 82 kg (07/11/21 4:56 AM) 82 kg (07/10/21 6:11 AM) 82 kg (07/09/21 7:33 AM) Oxygen Saturation [94-100 %] 98 % (07/11/21 7:25 AM) 97 % (07/11/21 4:56 AM) 98 % (07/10/21 6:11 AM) Pulse Rate [55-90 bpm] 100 bpm *H* (07/11/21 7:25 AM) 118 bpm *H* (07/11/21 4:56 AM) 110 bpm *H* (07/10/21 6:11 AM) Body Mass Index [18.5-24.99] 34.13 *>HHI* (07/11/21 4:56 AM) 34.13 *>HHI* (07/10/21 6:11 AM) 34.13 *>HHI* (07/09/21 7:33 AM) Blood Pressure [90-138/55-84 mm Hg] 123/79mm Hg (07/11/21 7:25 AM) 117/75mm Hg (07/11/21 4:56 AM) 109/85mm Hg (07/10/21 6:11 AM) Respiratory Rate [16-30 br/min] 21 br/min (07/11/21 7:25 AM) 26 br/min (07/11/21 4:56 AM) 16 br/min (07/10/21 6:11 AM) Temperature [96.8-100.4 DegF] 97.1 DegF (07/11/21 7:25 AM) 97.8 DegF (07/11/21 4:56 AM) 97.8 DegF (07/10/21 6:11 AM) Mode of Delivery (Oxygen) Room air (07/11/21 7:25 AM) Room air (07/11/21 4:56 AM) Room air (07/10/21 6:11 AM) Blood pressure sites Arm, left (07/11/21 7:25 AM) Arm, left (07/11/21 4:56 AM) Arm, left (07/10/21 6:11 AM) Temperature Route Oral (07/11/21 7:25 AM) Oral (07/11/21 4:56 AM) Temporal (07/10/21 6:11 AM) Dry Weight 82 kg (07/11/21 4:56 AM) 82 kg (07/10/21 6:11 AM) 82 kg (07/09/21 7:33 AM) Social History Social History Type Response Smoking Status Current every day frank pruitt entered on: 04/09/17 Sex
--- OUTSIDE RECORDS SUMMARY | 2022-11-01 00:24 | XMS_ITS | Continuity of Care Document ---
Author Name Unknown Organization [facility] Address [address] [place] [address]- Care Team Providers Care Optician Manager Name Role Phone Daily GARCIA, Leeann Beltran Primary Care Physician [phone] [id number] Date(s): 02/15/19 - 02/22/[address] [address]- Attending Physician: Brenda Bear DO Admitting Physician: [...] toxoids (Td) 10/23/07 Given 1Result Comment: (l) [id number] Medications albuterol CFC free 90 mcg/inh inhalation [...] 12/13/18 10:53:39 EST, Route to Pharmacy Electronically, [id number], [facility] - [address] Start [...] 12/13/18 10:56:49 EST, Route to Pharmacy Electronically, [id number], [facility]- [address] Start Date: [...] oldest [Reference Range]: 1 Height 164 cm (02/15/19 11:42 AM) Weight 79.2 kg (02/15/19 11:42 AM) Body Mass Index [18.5-24.99] 29.45 *H* (02/15/19 11:42 AM) Blood Pressure [90-138/55-84 mm Hg] 140/ 90mm Hg *H* (02/15/19 11:42 AM) Blood pressure sites Arm, left (02/15/19 11:42 AM) Social History Social History Type Response Smoking Status Current every day frank pruitt entered on: 04/09/17 Sex
--- OUTSIDE RECORDS SUMMARY | 2022-11-01 00:24 | XMS_ITS | Continuity of Care Document ---
Author Name Unknown Organization [facility] Address [address] [place] [address]- Care Team Providers Care Hanging Flags Decorator Name Role Phone Daily GARCIA, Leeann Beltran Primary Care Physician Encounter [facility] Date(s): 07/27/20 - 08/03/20 [facility] [address] [place] [address]- Attending Physician: Madelyn Branch MD Admitting Physician: Madelyn Branch MD Allergies, Adverse Reactions, Alerts Substance Reaction Severity Status haloperidol Active trazodone-like drugs Active Imitrex Moderate Active Cymbalta Active Hand Spanish Professor 1 Active diphenhydrAMINE Active hydrOXYzine Active tramadol Active Risperdal Active Singulair Active Latex Active Seafood Throat, Hands, Feet swell Persistent Candice re Active ZyPREXA 2 Active 1REACTION - FULL BLOWN ASTHMA ATTACK 2Pt states it gives her a paradoxical reaction. Not true allergy Immunizations Given and Recorded Vaccine Date Status Refusal Reason influenza virus vaccine, inactivated 12/24/11 Give n influenza virus vaccine, inactivated 1 04/12/08 Gi jacobo pneumococcal 23-valent vaccine 12/16/08 Given tetanus-diphtheria toxoids (Td) 10/23/07 Given 1Result Comment: (l) [id number] (0) [id number] Medications albuterol CFC free 90 mcg/inh inhalation [...] recent to oldest [Reference Range]: 1 Height 154 cm (07/27/20 11:18 AM) Social History Social History Type Response Smoking Status Current every day frank pruitt entered on: 04/09/17 Sex
--- OUTSIDE RECORDS SUMMARY | 2022-11-01 00:24 | XMS_ITS | Continuity of Care Document ---
Author Name Unknown Organization [facility] Address [address] [place] [address]- Care Team Providers Care Ct Technician Name Role Phone Leeann Ambrosio MD Primary Care Physician Encounter [facility] [place] Date(s): 12/27/19 - 01/26/[address] [address]- Allergies, Adverse Reactions, Alerts Substance Reaction Severity [...] toxoids (Td) 10/23/07 Given 1Result Comment: (l) [id number] (4) [id number] Medications albuterol CFC free 90 mcg/inh inhalation [...] Refills, Maintenance, 02/15/19 12:15:00 EST, Ointment, [facility] - [address] , 1 application [...] 12/13/18 10:53:39 EST, Route to Pharmacy Electronically, [id number], [facility] [address] Start Date: [...]
--- OUTSIDE RECORDS SUMMARY | 2022-11-01 00:24 | XMS_ITS | Continuity of Care Document ---
Author Name Unknown Organization [facility] Address [address] [place] [address]- Care Team Providers Care Weight Reducing Technician Name Role Phone Leeann Ambrosio MD Primary Care Physician Encounter [facility] Date(s): 02/26/22 - 03/01/[address] [address]- Encounter Diagnosis Suicidal ideation(Final) - 02/27/22 Discharge Disposition: A-D/C Home Attending Physician: Melba Sherman DO Admitting Physician: Melba Sherman DO Referring Physician: Not on Staff, Referring MD Allergies, Adverse Reactions, Alerts Substance Reaction Severity Status ketamine Active hydrOXYzine Active tramadol Active trazodone-like drugs Active Singulair Active Risperdal Active Imitrex Moderate Active Haldol akathesia Active Latex Active Seafood Throat, Hands, Feet swell Persistent Candice re Active Strattera Active Cymbalta Active Hand Chain Person 1 Active ZyPREXA 2 Active 1REACTION - FULL BLOWN ASTHMA ATTACK 2Pt states it gives her a paradoxical reaction. Not true allergy Immunizations Given and Recorded Vaccine Date Status Refusal Reason influenza virus vaccine, inactivated 12/24/11 Give n influenza virus vaccine, inactivated 1 04/12/08 Gi jacobo pneumococcal 23-valent vaccine 12/16/08 Given tetanus-diphtheria toxoids (Td) 10/23/07 Given 1Result Comment: (l) [id number] 3) [id number] Medications Adderall 10 mg oral tablet 2 [...] Maintenance, 02/25/22 16:19:00 EST, Tablet, [id number], Partial fill upon patient request if the [...] Refills, Maintenance, 03/01/22 6:53:00 EST, [facility] #[id number], Partial fill upon patient request if the [...] (urinary tract infection) Confirmed Active 1TOLERATES DROPERIDOL Results Radiology Reports * Exam Date Time Procedure Performing Provider Status 02/26/22 11:45 PM Hand 2 Views Left Dione Quinn; Modified Notes: (Hand 2 Views Left) Reason For Exam: with Pain;Trauma RESULT: Hand 2 Views Left Hand 2 Views Left CLINICAL INDICATION: Hx of Present Illness: MHE, SI; Reason: Trauma; with Pain; Clinical Question(s): Fracture COMPARISONS: None TECHNIQUE: AP and lateral views of the left hand were obtained. FINDINGS: There is no fracture or dislocation. Normal radiocarpal alignment is maintained. Carpal joint spaces and bone contours are normal. MCP and IP joint spaces are maintained. No retained radiodense foreign body. IMPRESSION: No fracture or foreign body. WSN: [id number] Ordering Physician: Timothy Johnson Dictated By: Travis Zhong MD Dictated Date/Time: 02/26/22 11:54 p Reviewed By: Travis Zhong MD Signed By: Travis Zhong MD Signed Date/Time: 02/26/22 11:54 pm Transcribed By: BARB Transcribed Date/Time: 02/26/22 11:53 pm Vital Signs Most recent to oldest [Reference Range]: 1 2 3 Height 156 cm (03/01/22 6:34 AM) 156 cm (02/28/22 11:29 PM) 156 cm (02/28/22 1:38 AM) Weight 83 kg (03/01/22 6:34 AM) 83 kg (02/28/22 11:29 PM) 83 kg (02/28/22 1:38 AM) Oxygen Saturation [94-100 %] 97 % (03/01/22 10:56 AM) 97 % (03/01/22 6:34 AM) 96 % (02/28/22 11:29 PM) Pulse Rate [55-90 bpm] 110 bpm *H* (03/01/22 10:56 AM) 129 bpm *H* (03/01/22 6:34 AM) 111 bpm *H* (02/28/22 11:29 PM) Body Mass Index [18.5-24.99 kg/m2] 34.11 kg/m2 *>HHI* (03/01/22 6:34 AM) 34.11 kg/m2 *>HHI* (02/28/22 11:29 PM) 34.11 kg/m2 *>HHI* (02/28/22 1:38 AM) Blood Pressure [90-138/55-84 mm Hg] 130/85mm Hg (03/01/22 10:56 AM) 125/88mm Hg (03/01/22 6:34 AM) 115/91mm Hg (02/28/22 11:29 PM) Respiratory Rate [16-30 br/min] 18 br/min (03/01/22 10:56 AM) 20 br/min (03/01/22 6:34 AM) 20 br/min (02/28/22 11:29 PM) Temperature [96.8-100.4 DegF] 97.9 DegF (03/01/22 6:34 AM) 98.5 DegF (02/28/22 11:29 PM) 97.0 DegF (02/28/22 1:38 AM) Mode of Delivery (Oxygen) Room air (03/01/22 10:56 AM) room air (03/01/22 6:34 AM) room air (02/28/22 11:29 PM) Temperature Route Oral (03/01/22 6:34 AM) Temporal (02/28/22 11:29 PM) Oral (02/28/22 1:38 AM) Dry Weight 83 kg (03/01/22 6:34 AM) 83 kg (02/28/22 11:29 PM) 83 kg (02/28/22 1:38 AM) Weight Obtained Via Standing scale (02/26/22 11:13 PM) Social History Social History Type Response Smoking Status Current every day frank pruitt entered on: 04/09/17 Sex Hospital Progress note * Virginie Miranda RN: PERFORM, SIGN, VERIFY, SIGN, MODIFY, SIGN, MODIFY, SIGN, MODIFY, SIGN, MODIFY Event Display: Progress Note Hospital Authored Date: Patient: TRACY GUTIERREZ Age: 46 years Sex: Female : 1975 Associated Diagnoses: None Author: Virginie Miranda RN Findings Narrative/Incidental Pt doing laps around the unit. Requested IV ativan and given via IM. She states her therapist is coming bedside at 1500 to speak w/ her and then she can probably go home. Was supposed to have facetime therapy at 11am which she did not call into despite having her phone given to her for call. . Discharge Information Case Management Discharge Plan : Case Management Discharge Plan Data 02/25/2022 14:41 EST Discharge Level of Care at Discharge Home/[facility] 02/24/2022 10:30 EST Discharge Level of Care at Discharge Home/[facility] 02/23/2022 11:06 EST Discharge Level of Care at Discharge In Error (In Error) * Virginie Miranda RN: PERFORM Event Display: Progress Note Hospital Authored Date: Unhappy that provider will not over ride inclusion teacher and d/c her as she states provider here the other day did so. Raised voice conversation. Pt able to regain control on own and is again doing laps in the ER w/ observer. * Virginie Miranda RN: PERFORM Event Display: Progress Note Hospital Authored Date: pt loudly yelling in pod after speaking to the provider as pt requested. Pt told by provider she isnot leaving this time and is s12 and bs and working w/ inclusion teacher for placement. * Virginie Miranda RN: PERFORM Event Display: Progress Note Hospital Authored Date: Pt requested medication to calm down. IM meds given. Therapist bedside at 1500 to see pt, unfortuantly she fell asleep and asked him to leave. * Virginie Miranda RN: PERFORM Event Display: Progress Note Hospital Authored Date: Pt remains drowsy and sleeping on/off since receiving IM medication at 1600. Woke up reporting SOB,wheezing and ronchi throughout lung glynn. Albuterol PRN given x2 then called for updraft and given po prednisone. Pt requested pm medications at that time so that she could go back to sleep & not be disrupted. Has been sleeping since. Resp status improved. Note * Melba Sherman DO: PERFORM, SIGN, VERIFY Event Display: Patient Education Handout Authored Date: * Melba Sherman DO: PERFORM Event Display: Patient Education Leaflets Authored Date: Psychiatric Outpatient Referral List ?? 263 Psychiatric Outpatient Referral List [facility] 24hr Emergency Crisis Line? [address], [place]? [phone] ? [phone] [facility] Central Intake? [phone] ? [phone] [facility]? [address], [place] ? [phone] ? Walk in: T-Th 9:45-12:45pm [facility]? [address], [place]? [phone] [facility]? [phone] [facility]? [address], [place]? [phone] [facility] [place]? [address], [place]? [phone] [facility]? [address], [place]? [phone] [facility]? [address], [place]? [phone] [facility]? [address], [place]? [phone] ? Walk in: M-Th 8:00-4:00pm [facility]? [address], [place]? [phone] [facility] [place] [facility]? [address] [place]? [phone] [facility]? [address], [place] ? [phone] [facility]? [address], [place]? [phone] [facility]? [address], [place]? [phone] [facility]? [place]? [phone] [facility] [address], [place]? [phone] [facility]? [place]? [phone] [facility]? [address], [place] ? [phone] [facility]? [address], [place]? [phone] [facility]? [address], [place]? [phone] ? Walk in: M-W 9:30 or 10:30am [facility]? [address], [place]?? [place]? [phone] ? [phone] Domestic Violence 24 Hr Hot Lines: ? [facility]? [phone] ? [facility]? [phone]? [facility]? [phone] ? [facility]? [phone] ?? Elder Services: ? [facility] [place] [facility]? [phone] ? [facility] [place] [facility] ? [phone] ?? Legal Advocacy Hot Line: ? [facility] ? [phone] (9:30-12:45 M-[place]) ?? [place] Dept of Transitional Assistance: ? [place] [phone] / [place] [phone] / [facility] [phone] ?? DETOX Services [facility]? [address], [place], [place]? [phone] [facility]? [address], [place], [place]? [phone] [facility]? [address], [place], [place]? [phone] [facility] ??? [facility]? [address], [place], [place]? [phone] ? [phone] ? After 5pm:? [phone] [facility] ??? [facility] [address], [place], [place]? [phone] ? [phone]? After 5pm:? [phone] [facility]? [address], [place], [place]? [phone] [facility]? [address], [place], [place]? [phone] ? [phone] [facility]? [address], [place], [place]? [phone] [facility]? [address], [place], [place]? [phone] [facility]? [address], [place], [place]? [phone] [facility]? [address], [place], [place]? [phone] ? [phone] [facility] ?[address], [place], [place]? [phone] [place] [address]? [address], [place], [place]? [phone] ? [phone] [facility]? [address], [place], [place]? [phone] ? [phone] [facility]? [address], [place], [place]? [phone] [facility]? [address], [place], [place] ? [phone] [facility]? [address], [place], [place]? [phone] ? [phone] ? * Melba Sherman DO: PERFORM Event Display: Patient Education Leaflets Authored Date: [id number] Suicidal Thoughts (72-Hour Hold) ?? [id number] Suicidal Thoughts (72-Hour Hold) Your doctor has determined that your thoughts and actions suggest that you are suicidal. They have determined that there is a risk that you may try to harm yourself if you leave here. This is most often a sign of depression or excess anger at yourself or someone else. With your protection and well-being in mind, you have been placed on a legal 72-hour hold. This is so that you can be assessed by a psychiatrist. What is??a 72-hour hold? The law requires that you must be held for up to 72 hours for a psychiatric evaluation if a certified person such as a healthcare provider, , police reserves commander, or cargo vessel stewardess's deputy determines that you are: ??? A danger to yourself or others, or ??? Not able to care for yourself, or ??? Gravely disabled This hold is enforced even if you don't consent. ?? Follow-up care When you are released, follow up with your doctor or mental health provider for continued medical care. This is very important for your ongoing well-being. ?? Call or text [phone] Call or text 988 if you have suicidal thoughts, a suicide plan, and the means to carry out the plan, or serious thoughts of hurting someone else. When you call or text 988, you will be connected to trained crisis counselors at the Suicide Prevention Lifeline. An online chat option is also available. LifeRev[employer]v is free and available 01/09. ?? When to seek medical advice Call your healthcare provider or emergency services right away if any of the following occur: ??? Symptoms gradually or suddenly return ??? Medicine side effects develop ??? Feeling very depressed, anxious or angry toward yourself or others ??? Feeling out of control ??? Feeling that you may try toharm yourself or someone else ??? Hearing voices that others don't hear ??? Seeing things that others don't see ??? Having extreme mood swings ??? Not able to sleep or eat for 3 days in a row ??? Family or friends are concerned about your well-being and behaviors and ask you to seek help ?? To learn more ??? National Suicide Prevention Lifeline at www.suicidepreventionlifeline.org or 997-574-NKZH (834-746-3279). If in crisis, call or text 988 ??? National [place] on Mental Illness at www.deana.org sk073-275-6694 ??? Mental Health [place] at www.nmha.org or 912 114.6829 ??? National [place] of Mental Health at www.nimh.nih.gov or 691-158-1032 ?? Last Reviewed Date: 2021 ?? [employer]. All rights reserved. This information is not intended as a substitute for professional medical care. Always follow your healthcare professional's instructions. ?? * Rikki GARCIA, Pradeep Del Rosario: PERFORM Event Display: Patient Education Leaflets Authored Date: [id number] Lidocaine Medicated Patch ?? [id number] Lidocaine Medicated Patch Brands: Absorbine Lidocaine, Lidoderm, ZTlido Uses This medicine is used for the following purposes: ??? itching ??? pain ??? skin irritation ??? skinwound ?? Instructions DO NOT take this medicine by mouth. Apply the patch to the most painful area. The patch should be removed after 8 or 12 hours depending on the brand of your product. Read the package instructions or ask your pharmacist how long the patch can be applied to the skin. Keep the medicine at room temperature. Avoid heat and direct light. Please ask your doctor, nurse, or pharmacist how to discard unused medicines safely. You may cut the patch with scissors if needed. Be sure to cut the patch before peeling away the liner protecting the adhesive. Wash your hands before and after handling this medicine. Do not use if the pouch containing the medicine is torn or damaged. Remove the plastic liner that protects the sticky side of the patch before applying to the skin. Be sure the area of skin is clean and dry before putting on a new patch. Apply the patch only to normal looking skin. Avoid areas of the skin that are red, have scrapes, ordamaged. Press the patch firmly for a few seconds to make sure it stays in place. If the patch does not stick, speak with your doctor or pharmacist. Do not cover the patch with bandage or tape unless instructed by your doctor or pharmacist. After removing the patch, fold it together and discard it out of reach of children and pets. Do not dispose of a used patch by flushing it into the toilet. Avoid getting the medicine in the eyes, nose, or mouth. Wash the medicine off your fingers after applying it. Please ask your doctor or pharmacist how you can safely dispose of used patches. If the patch causes a feeling of burning or pain at the location of the patch, remove the patch until the feeling goes away. If the patch falls off or you forgot to use the patch on time, apply a new patch immediately to a different location. Replace this new patch at your next usual dosing time. Do not apply heat to the area with the patch. Avoid heating blankets, suntan beds, hot tubs, or other sources of heat. Ask the doctor or pharmacist if you can bathe, swim or shower while wearing the patch. Clothing may be worn over the patch. Avoid touching or scratching the area of the skin after the patch is removed. Drug interactions can change how medicines work or increase risk for side effects. Tell your healthcare providers about all medicines taken. Include prescription and [id number] medicines, vitamins, and herbal medicines. Speak with your doctor or pharmacist before starting or stopping any medicine. Tell your doctor if symptoms do not get better or if they get worse. ?? Cautions Some patients taking this medicine have experienced serious side effects. Please speak with your doctor to understand the risks and benefits associated with this medicine. Tell your doctor and pharmacist if you ever had an allergic reaction to a medicine. Do not use the medication any more than instructed. Tell the doctor or pharmacist if you are , planning to be , or . Ask your doctor if patch should be removed before having an MRI scan to avoid serious [place]. Do not share this medicine with anyone who has not been prescribed this medicine. ?? Side Effects The following is a list of some common side effects from this medicine. Please speak with your doctor about what you should do if you experience these or other side effects. ??? burning or stinging ??? numbness where the medicine is applied ??? skin irritation where medicine is applied Call your doctor or get medical help right away if you notice any of these more serious side effects: ??? blurry vision ??? shallow, irregular breathing ??? dizziness or drowsiness ??? lack of energy and tiredness ??? fast, irregular, or slow heartbeat ??? mood changes ??? pale or blue skin, lips or fingernails ??? ringing in the ears ??? seizures ??? shortness of breath A few people may have an allergic reaction to this medicine. Symptoms can include difficulty breathing, skin rash, itching, swelling, or severe dizziness. If you notice any of these symptoms, seek medical help quickly. ?? Extra Please speak with your doctor, nurse, or pharmacist if you have any questions about this medicine. ?? [email or web address] IMPORTANT NOTE: This document tells you briefly how to take your medicine, but it does not tell youall there is to know about it. Your doctor or pharmacist may give you other documents about your medicine. Please talk to them if you have any questions. Always follow their advice. There is a more complete description of this medicine available in [place] [employer]. Scan this code on your smartphone or tablet or use the web address below. You can also ask your pharmacist for a printout. If you have any questions, please ask your pharmacist. The display and use of this drug information is subject to Terms of Use. Copyright(c) 2021 [employer]. ?? [employer]. All rights reserved. This information is not intended as a substitute for professional medical care. Always follow your healthcare professional's instructions. ?? XR Hand - left 2 Views * Darrius , CIS S: TRANSCRIBE Travis Zhong MD: VERIFY Event Display: Result: Authored Date: [id number] Hand 2 Views Left CLINICAL INDICATION: Hx of Present Illness: MHE, SI; Reason: Trauma; with Pain; Clinical Question(s): Fracture COMPARISONS: None TECHNIQUE: AP and lateral views of the left hand were obtained. FINDINGS: There is no fracture or dislocation. Normal radiocarpal alignment is maintained. Carpal joint spaces and bone contours are normal. MCP and IP joint spaces are maintained. No retained radiodense foreign body. IMPRESSION: No fracture or foreign body. WSN: [id number] Ordering Physician: Timothy Johnson Dictated By: Travis Zhong MD Dictated Date/Time: 02/26/22 11:54 p Reviewed By: Travis Zhong MD Signed By: Travis Zhong MD Signed Date/Time: 02/26/22 11:54 pm Transcribed By: BARB Transcribed Date/Time: 02/26/22 11:53 pm Patient Care team information Care Team Personnel Name: Leeann Ambrosio MD Position: [facility] Physician (General Medicine) Member Role: PCP Address: Address: [address] [place] [address]- [place] Name: Geovanna Vu MD Position: [facility] BRIDAL STYLIST SALES CONSULTANT MD Member Role: [employer] BRIDAL STYLIST SALES CONSULTANT Physician Address: Address: [address] [place] [id number]- Name: Saige Lacey RN Position: [facility] RN Member Role: Primary Care Nurse Name: Brenda Bear DO Position: [facility] BRIDAL STYLIST SALES CONSULTANT MD Member Role: [employer] BRIDAL STYLIST SALES CONSULTANT Physician Address: Address: [address] [facility] [place] [address]- Name: Laura Ni RN Position: [facility] ED RN W/OE and Tasks Member Role: Patient Care Provider Name: Melba Sherman DO Position: [facility] ED Medicine MD Member Role: Admitting Physician Address: Address: [address] [place] [address]- Care Team Related Persons Name: KYLIENEGRITO ANJU Address: home [address] [place] [address] Name: SHIRLEY HU Address: home [address] [place] [address]
--- OUTSIDE RECORDS SUMMARY | 2022-11-01 00:24 | XMS_ITS | Continuity of Care Document ---
Author Name Unknown Organization [facility] Address [address] [place] [address]- Care Team Providers Care Business Integration Analyst Name Role Phone Daily GARCIA, Leeann Beltran Primary Care Physician Encounter [facility] [place] Date(s): 06/09/19 - 06/10/[address] [address] [phone] Discharge Disposition: Transfer to [facility] Facility Attending Physician: Pradeep Bradnt MD Admitting Physician: Pradeep Brandt MD Referring [...] toxoids (Td) 10/23/07 Given 1Result Comment: (l) [id number] (3) [id number] Medications albuterol CFC free 90 mcg/inh inhalation [...] 12/13/18 10:53:39 EST, Route to Pharmacy Electronically, [id number], [facility] - [address] Start [...] 12/13/18 10:56:49 EST, Route to Pharmacy Electronically, [id number][facility] [address] Start [...] Range]: 1 2 3 Height 156 cm (06/09/19 8:58 PM) Weight 82.7 kg (06/09/19 8:58 PM) Oxygen Saturation [94-100 %] 96 % (06/10/19 7:39 AM) 95 % (06/10/19 12:01 AM) 96 % (06/09/19 9:28 PM) Pulse Rate [55-90 bpm] 97 bpm *H* (06/10/19 7:39 AM) 118 bpm *H* (06/10/19 12:01 AM) 126 bpm *H* (06/09/19 9:28 PM) Blood Pressure [90-138/55-84 mm Hg] 134/96mm Hg (06/10/19 7:39 AM) 121/85mm Hg (06/10/19 12:01 AM) 151/101mm Hg *H* (06/09/19 9:28 PM) Respiratory Rate [16-30 br/min] 18 br/min (06/10/19 7:39 AM) 16 br/min (06/10/19 12:01 AM) 18 br/min (06/09/19 11:59 PM) Temperature [96.8-100.4 DegF] 97.1 DegF (06/10/19 7:39 AM) 97.5 DegF (06/10/19 12:01 AM) 99.3 DegF (06/09/19 9:28 PM) Mode of Delivery (Oxygen) Room air (06/10/19 7:39 AM) Room air (06/10/19 12:01 AM) Room air (06/09/19 9:28 PM) Temperature Route Oral (06/10/19 7:39 AM) Oral (06/10/19 12:01 AM) Oral (06/09/19 9:28 PM) Dry Weight 82.7 kg (06/09/19 8:58 PM) Weight Obtained Via Standing scale (06/09/19 8:58 PM) Social History Social History Type Response Smoking Status Current every day frank pruitt entered on: 04/09/17 Sex
--- OUTSIDE RECORDS SUMMARY | 2022-11-01 00:25 | XMS_ITS | Continuity of Care Document ---
Author Name Unknown Organization [facility] Address [address] [place] [address]- Care Team Providers Care Thermodynamics Engineer Name Role Phone Daily GARCIA, Leeann Beltran Primary Care Physician [phone] Encounter [facility] [place] Date(s): 05/28/20 - 06/27/20 [facility] [address] [place] [address]- Allergies, Adverse Reactions, Alerts Substance Reaction Severity [...] influenza virus vaccine, inactivated 1 04/12/08 Gi jacboo pneumococcal 23-valent vaccine 12/16/08 Given tetanus-diphtheria toxoids (Td) 10/23/07 Given 1Result Comment: (l) [id number] 3) [id number] Medications albuterol CFC free 90 mcg/inh inhalation [...]
--- OUTSIDE RECORDS SUMMARY | 2022-11-01 00:25 | XMS_ITS | Continuity of Care Document ---
Author Name Unknown Organization [facility] Address [address] [place] [address]- Care Team Providers Care Broach Operator Name Role Phone Leeann Ambrosio MD Primary Care Physician [phone] Encounter [facility] [place] Date(s): 03/08/20 - 03/10/[address] [address]- Discharge Disposition: A-D/C Home Attending Physician: Randall Gore MD Admitting Physician: Randall Gore MD Referring Physician: Not on Staff, Referring [...] toxoids (Td) 10/23/07 Given 1Result Comment: (l) [id number] Medications Acetaminophen Tablet 975 mg, Tablet, By Mouth, Every 6 hours, PRN for Pain , Moderate, STAT, 03/09/20 3:15:00 EST Start Date: 03/09/20 Stop Date: 03/10/20 Status: Discontinued albuterol CFC free 90 mcg/inh [...] 12/13/18 10:53:39 EST, Route to Pharmacy Electronically, [id number], [facility] - [address] Start Date: 12/13/18 Status: Ordered EpiPen 2-Jerome = 0.3 mg, Intramuscular, Once, 0 Refills, Maintenance, 03/16/19 9:00:00 EST Start Date: 03/16/19 Status: Ordered gabapentin 100 mg oral capsule 100 mg, 1, capsule, By Mouth, Daily, Refills 0, Maintenance, 10/08/19 15:38:00 EDT Start Date: 10/08/19 Status: Ordered Ibuprofen Tablet 600 mg, Tablet, By Mouth, Every 6 hours, PRN for Pain , Moderate, STAT, 03/09/20 3:15:00 EST Start Date: 03/09/20 Stop Date: 03/10/20 Status: Discontinued levocetirizine 5 mg oral tablet 1 tablet [...] patient request Start Date: 11/30/18 Status: Ordered oxyCODONE 5 mg oral tablet 5 mg, Tablet, By Mouth, 3 times a day, PRN for Pain , Moderate, Routine, 03/10/20 10:08:00 EST Start Date: 03/10/20 Stop Date: 03/10/20 Status: Discontinued salicylic acid 2% topical gel See Instructions, [...] to oldest [Reference Range]: 1 2 3 4 Height 155 cm (03/10/20 12:18 PM) 155 cm (03/09/20 3:14 AM) 155 cm (03/08/20 5:19 PM) Weight 87 kg (03/10/20 12:18 PM) 87 kg (03/09/20 3:14 AM) 87 kg (03/08/20 5:19 PM) Oxygen Saturation [94-100 %] 96 % (03/09/20 8:54 PM) 96 % (03/09/20 3:14 AM) 98 % (03/08/20 5:15 PM) Pulse Rate [55-90 bpm] 102 bpm *H* (03/09/20 8:54 PM) 117 bpm *H* (03/09/20 3:14 AM) 103 bpm *H* (03/08/20 5:15 PM) Body Mass Index [18.5-24.99] 36.21 *>HHI* (03/09/20 3:14 AM) Blood Pressure [90-138/55-84 mm Hg] 107/84mm Hg (03/09/20 8:54 PM) 111/80mm Hg (03/09/20 3:14 AM) 168/88mm Hg *H* (03/08/20 5:15 PM) Respiratory Rate [16-30 br/min] 20 br/min (03/10/20 10:38 AM) 20 br/min (03/09/20 8:54 PM) 16 br/min (03/09/20 11:30 AM) 16 br/min (03/09/20 11:30 AM) Temperature [96.8-100.4 DegF] 97.6 DegF (03/09/20 8:54 PM) 97.5 DegF (03/08/20 5:15 PM) Mode of Delivery (Oxygen) Room air (03/09/20 8:54 PM) room air (03/09/20 3:14 AM) Room air (03/08/20 5:15 PM) Temperature Route Oral (03/09/20 8:54 PM) Oral (03/08/20 5:15 PM) Dry Weight 87 kg (03/10/20 12:18 PM) 87 kg (03/09/20 3:14 AM) 87 kg (03/08/20 5:19 PM) Social History Social History Type Response Smoking Status Current every day frank pruitt entered on: 04/09/17 Sex
--- OUTSIDE RECORDS SUMMARY | 2022-11-01 00:25 | XMS_ITS | Continuity of Care Document ---
Author Name Unknown Organization [facility] Address [address] [place] [address]- Care Team Providers Care Director Of Events Name Role Phone Daily GARCIA, Leeann Beltran Primary Care Physician En[place] [facility] [place] Date(s): 09/04/20 - 10/04/20 [facility] [address] [place] [address]- Attending Physician: Krysta Torres Admitting Physician: AdmKrysta lee Referring Physician: AdmtrKrysta Allergies, Adverse Reactions, Alerts Substance Reaction Severity Status hydrOXYzine Active Cymbalta Active Hand Robotics Technologist 1 Active haloperidol Active diphenhydrAMINE Active tramadol Active Risperdal Active trazodone-like drugs [...] toxoids (Td) 10/23/07 Given 1Result Comment: (l) [id number] (3) [id number] Medications albuterol CFC free 90 mcg/inh inhalation [...] Route to Pharmacy Electronically, FAISALFanta ABERNATHY - [facility] , Partial fill upon patient request [...]
--- OUTSIDE RECORDS SUMMARY | 2022-11-01 00:25 | XMS_ITS | Continuity of Care Document ---
Author Name Unknown Organization [facility] Address [address] [place] [address]- Care Team Providers Care Non Licensed Nuclear Plant Operator Name Role Phone Leeann Ambrosio MD Primary Care Physician [phone] Encounter [facility] [place] Date(s): 04/25/22 - 04/25/[address] [address]- Encounter Diagnosis Anxiety(Final) - 04/25/22 Discharge Disposition: A-D/C Walkout Attending Physician: Randall Gore MD Admitting Physician: Randall Gore MD Referring Physician: Not on Staff, Referring MD Allergies, Adverse Reactions, Alerts Substance Reaction Severity Status hydrOXYzine Active trazodone-like drugs Active Singulair Active Latex Active ketamine Active tramadol Active Risperdal Active Imitrex Moderate Active Haldol akathesia Active Seafood Throat, Hands, Feet swell Persistent Candice re Active Strattera Active Cymbalta Active Hand Culinary Intern 1 Active ZyPREXA 2 Active Paxlovid Severe Active 1REACTION - FULL BLOWN ASTHMA ATTACK 2Pt states it gives her a paradoxical reaction. Not true allergy Immunizations Given and Recorded Vaccine Date Status Refusal Reason influenza virus vaccine, inactivated 12/24/11 Give n influenza virus vaccine, inactivated 1 04/12/08 Gi jacobo pneumococcal 23-valent vaccine 12/16/08 Given tetanus-diphtheria toxoids (Td) 10/23/07 Given 1Result Comment: (l) [id number] (3) [id number] Medications Adderall 10 mg oral tablet 2 [...] Maintenance, 02/25/22 16:19:00 EST, Tablet, [id number], Partial fill upon patient request if the [...] Refills, Maintenance, 03/01/22 6:53:00 EST, [id number], Partial fill upon patient request if the [...] Refills, Maintenance, 03/02/22 14:04:00 EST, [id number], Partial... Start Date: 03/02/22 Status: Ordered Toradol Inj 30 mg, Injection, Intramuscular, Once, STAT, 04/25/22 4:09:00 EDT, Stop date 04/25/22 4:09:00 EDT Start Date: 04/25/22 Stop Date: 04/25/22 Status: Completed Zyrtec 10 mg oral tablet 1 tablet [...] [Reference Range]: 1 2 Height 155 cm (04/25/22 2:13 AM) Weight 82 kg (04/25/22 2:13 AM) Oxygen Saturation [94-100 %] 95 % (04/25/22 2:13 AM) Pulse Rate [55-90 bpm] 130 bpm *H* (04/25/22 2:13 AM) Blood Pressure [90-138/55-84 mm Hg] 161/ 104mm Hg *H* (04/25/22 2:13 AM) Respiratory Rate [16-30 br/min] 16 br/mi n (04/25/22 4:52 AM) 20 br/min (04/25/22 2:13 AM) Mode of Delivery (Oxygen) Room air (04/25/22 2:13 AM) Dry Weight 82 kg (04/25/22 2:13 AM) Social History Social History Type Response Smoking Status Current every day frank sonal entered on: 04/09/17 Sex Hospital Progress note * Postema Geronimo GARIBAY: PERFORM, SIGN, VERIFY Event Display: Progress Note Hospital Authored Date: [id number] Patient: TRACY GUTIERREZ Age: 47 years Sex: Female : 1975 Associated Diagnoses: None Author: Postema Geronimo GARIBAY Findings Narrative/Incidental Pt met with TAX AUDITOR at this time. Pt became agitated by TAX AUDITOR presence and states she is voluntary and isgoing to leave. Pt states she is agiated that a specific member of TAX AUDITOR didnt evaluated them this morning. Pt gathers her belongings and leaves. MD aware of patient leaving. . Patient Care team information Care Team Personnel Name: Leeann Ambrosio MD Position: [facility] Physician (General Medicine) Member Role: PCP Address: Address: [address] [place] [address] Name: Geovanna Vu MD Position: [facility] BELL MAKER Member Role: Lifetime BELL MAKER Physician Address: Address: [address] [place] [address] Name: Saige Lacey RN Position: [facility] RN Member Role: Primary Care Nurse Name: Brenda Bear DO Position: [facility] BELL MAKER MD Member Role: Lifetime BELL MAKER Physician Address: Address: [address] [place], [place] [address]s [place] [address]- Name: Randall Gore MD Position: [facility] ED Medicine MD Member Role: Admitting Physician Address: Address: [address] [place] [address] [place] [address]- Name: Abbey Bingham RN Position: [facility] ED RN W/OE and Tasks Member Role: Patient Care Provider Name: Geronimo Gamez RN Position: [facility] ED RN W/OE and Tasks Member Role: Patient Care Provider Care Team Related Persons Name: DAYRON ANJU Address: home [address] [place] [address] Name: SHIRLEY HU Address: home [address] [place] [address]
--- OUTSIDE RECORDS SUMMARY | 2022-11-01 00:25 | XMS_ITS | Continuity of Care Document ---
Author Name Unknown Organization [facility] Address [address] [place] [address]- Care Team Providers Care Directional Bore Operator Name Role Phone Leeann Ambrosio MD Primary Care Physician Encounter [facility] [place] Date(s): 10/04/21 - 10/05/[address] [address]- Discharge Disposition: A-D/C Home Attending Physician: Damaris [...] re Active Strattera Active Cymbalta Active Hand Automatic Folder Seamer 1 Active ZyPREXA 2 Active 1REACTION - FULL BLOWN ASTHMA ATTACK 2Pt states it gives her a paradoxical reaction. Not true allergy Immunizations Given and Recorded Vaccine Date Status Refusal Reason influenza virus vaccine, inactivated 12/24/11 Give n influenza virus vaccine, inactivated 1 04/12/08 Gi jacobo pneumococcal 23-valent vaccine 12/16/08 Given tetanus-diphtheria toxoids (Td) 10/23/07 Given 1Result Comment: (l) [id number] (3) [id number] Medications albuterol CFC free 90 mcg/inh inhalation [...] [Reference Range]: 1 2 Height 155 cm (10/05/21 8:44 AM) 155 cm (10/04/21 7:27 PM) Weight 82.7 kg (10/05/21 8:44 AM) 82.7 kg (10/04/21 7:27 PM) Oxygen Saturation [94-100 %] 97 % (10/05/21 6:32 AM) 96 % (10/04/21 7:27 PM) Pulse Rate [55-90 bpm] 98 bpm *H* (10/05/21 6:32 AM) 129 bpm *H* (10/04/21 7:27 PM) Blood Pressure [90-138/55-84 mm Hg] 123/ 92mm Hg (10/05/21 6:32 AM) 137/92mm Hg (10/04/21 7:27 PM) Respiratory Rate [16-30 br/min] 16 br/mi n (10/05/21 6:32 AM) 18 br/min (10/04/21 7:27 PM) Temperature [96.8-100.4 DegF] 96.8 DegF (10/04/21 7:27 PM) Mode of Delivery (Oxygen) Room air (10/05/21 6:32 AM) Room air (10/04/21 7:27 PM) Blood pressure sites Arm, right (10/05/21 6:32 AM) Arm, right (10/04/21 7:27 PM) Temperature Route Temporal (10/04/21 7:27 PM) Dry Weight 82.7 kg (10/05/21 8:44 AM) 82.7 kg (10/04/21 7:27 PM) Social History Social History Type Response Smoking Status Current every day frank pruitt entered on: 04/09/17 Sex Care Team Personnel Name: Daily GARCIA, Leeann Beltran Address: [address] [place] [address]
--- OUTSIDE RECORDS SUMMARY | 2022-11-01 00:25 | XMS_ITS | Continuity of Care Document ---
Author Name Unknown Organization [facility] Address [address] [place] [address]- Care Team Providers Care Mri Tech Name Role Phone Leeann Ambrosio MD Primary Care Physician Encounter [facility] [place] Date(s): 10/07/19 - 10/11/[address] [address]- [place] [phone] Discharge Disposition: Transferred to short-term general hospit Attending Physician: Damaris Rg MD Admitting Physician: [...] toxoids (Td) 10/23/07 Given 1Result Comment: (l) [id number] (3 [id number] Medications albuterol CFC free 90 mcg/inh inhalation [...] 12/13/18 10:53:39 EST, Route to Pharmacy Electronically, [id number], [facility] - [address] Start [...] Range]: 1 2 3 Height 155 cm (10/11/19 8:22 AM) 155 cm (10/10/19 8:32 PM) 155 cm (10/10/19 7:39 AM) Weight 77.5 kg (10/11/19 8:22 AM) 77.5 kg (10/10/19 8:32 PM) 77.5 kg (10/10/19 7:39 AM) Oxygen Saturation [94-100 %] 98 % (10/11/19 8:22 AM) 97 % (10/10/19 8:32 PM) 98 % (10/10/19 7:39 AM) Pulse Rate [55-90 bpm] 88 bpm (10/11/19 8:22 AM) 98 bpm *H* (10/10/19 8:32 PM) 104 bpm *H* (10/10/19 7:39 AM) Body Mass Index [18.5-24.99] 32.26 *>HHI* (10/11/19 8:22 AM) 32.26 *>HHI* (10/10/19 8:32 PM) 32.26 *>HHI* (10/10/19 7:39 AM) Blood Pressure [90-138/55-84 mm Hg] 109/93mm Hg (10/11/19 8:22 AM) 126/90mm Hg (10/10/19 8:32 PM) 131/87mm Hg (10/10/19 7:39 AM) Respiratory Rate [16-30 br/min] 16 br/min (10/11/19 8:28 AM) 16 br/min (10/11/19 8:28 AM) 20 br/min (10/11/19 8:22 AM) Temperature [96.8-100.4 DegF] 97.3 DegF (10/11/19 8:22 AM) 97.4 DegF (10/10/19 8:32 PM) 98.2 DegF (10/10/19 7:39 AM) Mode of Delivery (Oxygen) Room air (10/11/19 8:22 AM) Room air (10/10/19 8:32 PM) Room air (10/10/19 7:39 AM) Blood pressure sites Arm, left (10/10/19 8:32 PM) Arm, left (10/10/19 7:39 AM) Arm, left (10/09/19 7:57 PM) Temperature Route Oral (10/11/19 8:22 AM) Oral (10/10/19 8:32 PM) Oral (10/10/19 7:39 AM) Dry Weight 77.5 kg (10/11/19 8:22 AM) 77.5 kg (10/10/19 8:32 PM) 77.5 kg (10/10/19 7:39 AM) Weight Obtained Via Patient/family state d (10/07/19 9:46 PM) Social History Social History Type Response Smoking Status Current every day frank pruitt entered on: 04/09/17 Sex
--- OUTSIDE RECORDS SUMMARY | 2022-11-01 00:25 | XMS_ITS | Continuity of Care Document ---
Author Name Unknown Organization [facility] Address [address] [place] [address]- Care Team Providers Care Sports Medicine Coordinator Name Role Phone Leeann Ambrosio MD Primary Care Physician [phone] [place] [facility] [place] Date(s): 06/11/21 - 06/12/[address] [address]- Encounter Diagnosis Acute depression(Final) - 06/12/21 Discharge Disposition: A-D/C Home Attending Physician: Nirav Carballo DO Admitting Physician: Nirav Carballo DO Referring Physician: Not on Staff, Referring MD Allergies, Adverse Reactions, Alerts Substance Reaction Severity Status haloperidol Active diphenhydrAMINE Active hydrOXYzine Active tramadol Active trazodone-like drugs Active Singulair Active Risperdal Active Imitrex Moderate Active Latex Active Seafood Throat, Hands, Feet swell Persistent Candice re Active Strattera Active Cymbalta Active Hand Inspector Circuitry Negative 1 Active ZyPREXA 2 Active 1REACTION - FULL BLOWN ASTHMA ATTACK 2Pt states it gives her a paradoxical reaction. Not true allergy Immunizations Given and Recorded Vaccine Date Status Refusal Reason influenza virus vaccine, inactivated 12/24/11 Give n influenza virus vaccine, inactivated 1 04/12/08 Gi jacobo pneumococcal 23-valent vaccine 12/16/08 Given tetanus-diphtheria toxoids (Td) 10/23/07 Given 1Result Comment: (l) [id number] (3) [id number] Medications albuterol CFC free 90 mcg/inh inhalation [...] to oldest [Reference Range]: 1 2 Height 157 cm (06/12/21 1:31 AM) 157 cm (06/11/21 9:58 PM) Weight 82 kg (06/12/21 1:31 AM) 82 kg (06/11/21 9:58 PM) Oxygen Saturation [94-100 %] 96 % (06/12/21 1:31 AM) 97 % (06/11/21 10:27 PM) Pulse Rate [55-90 bpm] 119 bpm *H* (06/12/21 1:31 AM) 104 bpm *H* (06/11/21 10:27 PM) Body Mass Index [18.5-24.99] 33.27 *>HHI* (06/12/21 1:31 AM) Blood Pressure [90-138/55-84 mm Hg] 114/ 81mm Hg (06/12/21 1:31 AM) 113/80mm Hg (06/11/21 10:27 PM) Respiratory Rate [16-30 br/min] 18 br/mi n (06/11/21 10:27 PM) Temperature [96.8-100.4 DegF] 98.5 DegF (06/11/21 10:27 PM) Mode of Delivery (Oxygen) Room air (06/12/21 1:31 AM) Room air (06/11/21 10:27 PM) Temperature Route Oral (06/11/21 10:27 PM) Dry Weight 82 kg (06/12/21 1:31 AM) 82 kg (06/11/21 9:58 PM) Social History Social History Type Response Smoking Status Current every day frank pruitt entered on: 04/09/17 Sex
--- OUTSIDE RECORDS SUMMARY | 2022-11-01 00:25 | XMS_ITS | Continuity of Care Document ---
Author Name Unknown Organization [facility] Address [address] [place] [address]- Care Team Providers Care Food And Beverage Order Clerk Name Role Phone Leeann Ambrosio MD Primary Care Physician [place] [facility] [place] 08/19/22 - 08/20/[address] [address]- Encounter Diagnosis Personality disorder(Final) - 08/20/22 Suicidal ideation(Final) - 08/20/22 Depression(Final) - 08/20/22 Frequent patient in emergency department(Final) - 08/20/22 Aggressive behavior, adult(Final) - 08/20/22 Discharge Disposition: Transfer to Psych Facility Attending Physician: Tammy Vyas MD Admitting Physician: Tammy Vyas MD Referring Physician: Not on Staff, Referring MD Allergies, Adverse Reactions, Alerts Substance Reaction Severity Status ketamine Active hydrOXYzine Active trazodone-like drugs Active Latex Active Strattera Active Hand Pc Tech 1 Active tramadol Active Risperdal Active Singulair Active Imitrex Moderate Active Haldol akathesia Active Seafood Throat, Hands, Feet swell Persistent Candice re Active Cymbalta Active ZyPREXA 2 Active Paxlovid Severe Active 1REACTION - FULL BLOWN ASTHMA ATTACK 2Pt states it gives her a paradoxical reaction. Not true allergy Immunizations Given and Recorded Vaccine Date Status Refusal Reason influenza virus vaccine, inactivated 12/24/11 Give n influenza virus vaccine, inactivated 1 04/12/08 Gi jacobo pneumococcal 23-valent vaccine 12/16/08 Given tetanus-diphtheria toxoids (Td) 10/23/07 Given 1Result Comment: (l) [id number] (3) [id number] Medications Omeprazole 40, By Mouth, 2 times [...] oldest [Reference Range]: 1 Height 154 cm (08/19/22 7:33 PM) Weight 86 kg (08/19/22 7:33 PM) Oxygen Saturation [94-100 %] 96 % (08/19/22 7:33 PM) Pulse Rate [55-90 bpm] 135 bpm *H* (08/19/22 7:33 PM) Blood Pressure [90-138/55-84 mm Hg] 142/ 78mm Hg *H* (08/19/22 7:33 PM) Respiratory Rate [16-30 br/min] 20 br/mi n (08/19/22 7:33 PM) Temperature [96.8-100.4 DegF] 99 DegF (08/19/22 7:33 PM) Mode of Delivery (Oxygen) Room air (08/19/22 7:33 PM) Temperature Route Oral (08/19/22 7:33 PM) Dry Weight 86 kg (08/19/22 7:33 PM) Social History Social History Type Response Smoking Status Current every day frank pruitt entered on: 04/09/17 Sex Patient Care team information Care Team Personnel Name: Leeann Ambrosio MD Position: [facility] Physician - Primary Care Member Role: PCP Address: Address: [address] [place] [address]- Name: Geovanna Vu MD Position: [facility] BEFORE SCHOOL BABYSITTER MD Member Role: Lifetime BEFORE SCHOOL BABYSITTER Physician Address: Address: [address] [place] [address]- Name: Saige Lacey RN Position: [facility] RN Member Role: Primary Care Nurse Name: Brenda Bear DO Position: [facility] BEFORE SCHOOL BABYSITTER MD Member Role: Lifetime BEFORE SCHOOL BABYSITTER Physician Address: Address: [address] [place] [address]- Name: Tammy Vyas MD Position: [facility] ED Medicine MD Member Role: Admitting Physician Address: Address: [address] [place] [address]- Name: Francisco Blanco RN Position: [facility] ED RN W/OE and Tasks Member Role: Patient Care Provider Care Team Related Persons Name: ANJU PADGETT Address: home [address] [place] [address] Name: SHIRLEY HU Address: home [address] [place] [address]
--- OUTSIDE RECORDS SUMMARY | 2022-11-01 00:25 | XMS_ITS | Continuity of Care Document ---
Author Name Unknown Organization [facility] Address Unknown Care Team Providers Care Hadoop Application Developer Name Role Phone Leeann Ambrosio MD Primary Care Physician En[place] [facility] [place] [facility] R [id number] Date(s): 09/18/20 - 10/18/20 [facility] Attending Physician: Krysta Torres Admitting Physician: Krysta Torres Referring Physician: Krysta Torres Referring Physician: Marzena Mckeon Allergies, Adverse Reactions, Alerts Substance Reaction Severity Status haloperidol Active diphenhydrAMINE Active hydrOXYzine Active tramadol Active trazodone-like drugs Active Singulair Active Risperdal Active Imitrex Moderate Active Latex Active Seafood Throat, Hands, Feet swell Persistent Candice re Active Cymbalta Active Hand Process Trainer 1 Active ZyPREXA 2 Active 1REACTION - FULL BLOWN ASTHMA ATTACK 2Pt states it gives her a paradoxical reaction. Not true allergy Immunizations Given and Recorded Vaccine Date Status Refusal Reason influenza virus vaccine, inactivated 12/24/11 Give n influenza virus vaccine, inactivated 1 04/12/08 Gi jacobo pneumococcal 23-valent vaccine 12/16/08 Given tetanus-diphtheria toxoids (Td) 10/23/07 Given 1Result Comment: (l) [id number] Medications albuterol CFC free 90 mcg/inh inhalation [...]
--- OUTSIDE RECORDS SUMMARY | 2022-11-01 00:25 | XMS_ITS | Continuity of Care Document ---
Author Name Unknown Organization [facility] Address [address] [place] [address]- Care Team Providers Care Boat Patcher Plastic Name Role Phone Daily GARCIA, Leeann Beltran Primary Care Physician [phone] Encounter [facility] [place] Date(s): 03/16/19 - 03/26/[address] [address]- Attending Physician: AdmKrysta lee Admitting Physician: AdmtrKrysta [...] toxoids (Td) 10/23/07 Given 1Result Comment: (l) [id number] (1) [id number] Medications albuterol CFC free 90 mcg/inh inhalation [...] 12/13/18 10:53:39 EST, Route to Pharmacy Electronically, [id number], [facility] - [address] Start [...] 12/13/18 10:56:49 EST, Route to Pharmacy Electronically, [id number], [facility]- [address] Start Date: [...]
--- OUTSIDE RECORDS SUMMARY | 2022-11-01 00:25 | XMS_ITS | Continuity of Care Document ---
Author Name Unknown Organization [facility] Address [address] [place] [address]- Care Team Providers Care Plumbing Mechanic Name Role Phone Daily GARCIA, Leeann Beltran Primary Care Physician Encounter [facility] [place] Date(s): 05/28/20 - 07/05/20 [facility] [address] [place] [address]- Attending Physician: Brenda Bear DO Admitting Physician: [...] toxoids (Td) 10/23/07 Given 1Result Comment: (l) [id number] (3) [id number] Medications albuterol CFC free 90 mcg/inh inhalation [...]
--- OUTSIDE RECORDS SUMMARY | 2022-11-01 00:25 | XMS_ITS | Continuity of Care Document ---
Author Name Unknown Organization [facility] Address [address] [place] [address]- Care Team Providers Care Cosmetic Account Coordinator Name Role Phone Daily GARCIA, Leeann Beltran Primary Care Physician [phone] [facility] [place] Date(s): 05/28/20 - 06/27/20 [facility] [address] [place] [address]- Allergies, Adverse Reactions, Alerts Substance Reaction Severity [...] toxoids (Td) 10/23/07 Given 1Result Comment: (l) [id number] 3) [id number] Medications albuterol CFC free 90 mcg/inh inhalation [...]
--- OUTSIDE RECORDS SUMMARY | 2022-11-01 00:25 | XMS_ITS | Continuity of Care Document ---
Author Name Unknown Organization [facility] Address [address] [place] [address] [address], [address] [place] [address]- Care Team Providers Care Tour Narrator Name Role Phone Daily GARCIA, Leeann Beltran Primary Care Physician [phone] [place] [facility] [place](s): 02/20/20 - 03/21/20 [facility] [address] [place] [address], [address] [place] [address]- Attending Physician: Krysta Torres Admitting Physician: AdmtrKrysta Referring Physician: AdmtrKrysta Allergies, Adverse Reactions, Alerts [...] toxoids (Td) 10/23/07 Given 1Result Comment: (l) [id number] (6) [id number] Medications albuterol CFC free 90 mcg/inh inhalation [...] 12/13/18 10:53:39 EST, Route to Pharmacy Electronically, [id number], [facility] - [address] Start [...]
--- OUTSIDE RECORDS SUMMARY | 2022-11-01 00:25 | XMS_ITS | Continuity of Care Document ---
Author Name Unknown Organization [facility] Address [address] [place] [address]- Care Team Providers Care Hat Trimmer Name Role Phone Leeann Ambrosio MD Primary Care Physician Encounter [facility] [place] Date(s): 10/03/22 - 10/04/[address] [address]- Discharge Disposition: A-D/C Home Attending Physician: Randall Gore MD Admitting Physician: Randall Gore MD Referring Physician: Not on Staff, Referring MD Allergies, Adverse Reactions, Alerts Substance Reaction Severity Status trazodone-like drugs Active Latex Active ketamine Active hydrOXYzine Active tramadol Active Risperdal Active Singulair Active Imitrex Moderate Active Haldol akathesia Active Seafood Throat, Hands, Feet swell Persistent Candice re Active Cymbalta Active Strattera Active Hand Office Technology Instructor 1 Active ZyPREXA 2 Active Paxlovid Severe Active 1REACTION - FULL BLOWN ASTHMA ATTACK 2Pt states it gives her a paradoxical reaction. Not true allergy Immunizations Given and Recorded Vaccine Date Status Refusal Reason influenza virus vaccine, inactivated 12/24/11 Give n influenza virus vaccine, inactivated 1 04/12/08 Gi jacobo pneumococcal 23-valent vaccine 12/16/08 Given tetanus-diphtheria toxoids (Td) 10/23/07 Given 1Result Comment: (l) [id number] (3) [id number] Medications carbidopa-levodopa 25 mg-100 mg oral tablet [...] recent to oldest [Reference Range]: 1 Height 149 cm (10/03/22 5:47 PM) Weight 86 kg (10/03/22 5:47 PM) Oxygen Saturation [94-100 %] 98 % (10/04/22 2:00 AM) Pulse Rate [55-90 bpm] 97 bpm *H* (10/04/22 2:00 AM) Blood Pressure [90-138/55-84 mm Hg] 109/ 86mm Hg (10/04/22 2:00 AM) Respiratory Rate [16-30 br/min] 18 br/mi n (10/04/22 2:00 AM) Temperature [96.8-100.4 DegF] 97.4 DegF (10/04/22 2:00 AM) Mode of Delivery (Oxygen) Room air (10/04/22 2:00 AM) Temperature Route Temporal (10/04/22 2:00 AM) Dry Weight 86 kg (10/03/22 5:47 PM) Dry Weight Obtained Via Patient/family s tated (10/03/22 5:47 PM) Social History Social History Type Response Smoking Status Current every day sm oker entered on: 04/09/17 Sex Patient Care team information Care Team Personnel Name: Daily GARCIA, Leeann Beltran Position: [facility] Physician - Primary Care Member Role: PCP Address: Address: [address] [place] [address]- Name: Geovanna Vu MD Position: [facility] COMPUTER PROGRAMMER MD Member Role: Lifetime COMPUTER PROGRAMMER Physician Address: Address: [address] [place] [address] Name: Saige Lacey RN Position: [facility] RN Member Role: Primary Care Nurse Name: Brenda Bear DO Position: [facility] COMPUTER PROGRAMMER MD Member Role: Lifetime COMPUTER PROGRAMMER Physician Address: Address: [address] [place] [address] Name: Randall Gore MD Position: [facility] ED Medicine MD Member Role: Admitting Physician Address: Address: [address] [facility] Emergency Medicine [address] Name: Luis Fernando Darnell RN Position: [facility] ED RN W/OE and Tasks Member Role: Patient Care Provider Care Team Related Persons Name: ANJU PADGETT Address: home [address] [place] [address] Name: SHIRLEY HU Address: home [address] [place] [address]
--- OUTSIDE RECORDS SUMMARY | 2022-11-01 00:25 | XMS_ITS | Continuity of Care Document ---
Author Name Unknown Organization [facility] Address [address] [facility], [address] d Floor, [address] [place] [address]- Care Team Providers Care Senior Online Marketing Manager Name Role Phone Daily GARCIA, Leeann Beltran Primary Care Physician [place] [facility] [place] 05/[place]/20 [facility] [address], [address] Floor, [address] [place] [address]- Attending Physician: Krysta Torres Admitting Physician: AdmtrKrysta [...] toxoids (Td) 10/23/07 Given 1Result Comment: (l) [id number] (5) [id number] Medications albuterol CFC free 90 mcg/inh inhalation [...] 12/13/18 10:53:39 EST, Route to Pharmacy Electronically, [id number], [facility] - [address] Start [...]
--- OUTSIDE RECORDS SUMMARY | 2022-11-01 00:26 | XMS_ITS | Continuity of Care Document ---
Author Name Unknown Organization [facility] Address [address] [place] [address]- Care Team Providers Care Revenue Officer Name Role Phone Leeann Ambrosio MD Primary Care Physician Encounter [facility] [place] Date(s): 12/09/21 - 12/11/[address] [address]- Encounter Diagnosis Schizoaffective disorder(Final) - 12/10/21 Suicidal ideation(Final) - 12/10/21 Suicidal ideation(Final) - 12/10/21 Schizoaffective disorder(Final) - 12/10/21 Discharge Disposition: A-D/C Home Attending Physician: Pradeep [...] re Active Strattera Active Cymbalta Active Hand Car Checker 1 Active ZyPREXA 2 Active 1REACTION - FULL BLOWN ASTHMA ATTACK 2Pt states it gives her a paradoxical reaction. Not true allergy Immunizations Given and Recorded Vaccine Date Status Refusal Reason influenza virus vaccine, inactivated 12/24/11 Give n influenza virus vaccine, inactivated 1 04/12/08 Gi jacobo pneumococcal 23-valent vaccine 12/16/08 Given tetanus-diphtheria toxoids (Td) 10/23/07 Given 1Result Comment: (l) [id number] (3 [id number] Medications albuterol CFC free 90 mcg/inh inhalation [...] 07/12/20 9:30:00 EDT, [facility] [address], Partial fill [...] Range]: 1 2 3 Height 155 cm (12/10/21 1:59 AM) Weight 83 kg (12/10/21 1:59 AM) Oxygen Saturation [94-100 %] 95 % (12/11/21 10:00 AM) 96 % (12/10/21 7:00 PM) 94 % (12/10/21 10:35 AM) Pulse Rate [55-90 bpm] 108 bpm *H* (12/11/21 10:00 AM) 95 bpm *H* (12/10/21 7:00 PM) 120 bpm *H* (12/10/21 10:35 AM) Blood Pressure [90-138/55-84 mm Hg] 136/89mm Hg (12/11/21 10:00 AM) 136/88mm Hg (12/10/21 7:00 PM) 148/94mm Hg *H* (12/10/21 10:35 AM) Respiratory Rate [16-30 br/min] 17 br/min (12/11/21 10:00 AM) 18 br/min (12/11/21 7:00 AM) 18 br/min (12/11/21 5:00 AM) Temperature [96.8-100.4 DegF] 97.0 DegF (12/11/21 10:00 AM) Mode of Delivery (Oxygen) Room air (12/11/21 10:00 AM) Room air (12/10/21 7:00 PM) Room air (12/10/21 10:35 AM) Temperature Route Oral (12/11/21 10:00 AM) Dry Weight 83 kg (12/10/21 1:59 AM) Weight Obtained Via Patient/family state d (12/10/21 1:59 AM) Social History Social History Type Response Smoking Status Current every day frank pruitt entered on: 04/09/17 Sex Patient Care team information Personnel Name: Daily GARCIA, Leeann Beltran Address: Address: [address] [place] [address]
--- OUTSIDE RECORDS SUMMARY | 2022-11-01 00:26 | XMS_ITS | Continuity of Care Document ---
Author Name Unknown Organization [facility] Address [address] [place] [address]- Care Team Providers Care Occupational Medicine Specialist Name Role Phone Leeann Ambrosio MD Primary Care Physician Encounter [facility] [place] Date(s): 02/16/19 - 10/11/[address] [address]- [place] [phone] Encounter Diagnosis Moderate persistent asthma, uncomplicated(Final) - Discharge Disposition: A-D/C Home Attending Physician: Tiffany Stuart MD Admitting Physician: Tiffany Stuart MD Referring Physician: Tiffany Stuart MD Allergies, Adverse Reactions, Alerts Substance Reaction [...] toxoids (Td) 10/23/07 Given 1Result Comment: (l) [id number] Medications albuterol CFC free 90 mcg/inh inhalation [...] 12/13/18 10:53:39 EST, Route to Pharmacy Electronically, [id number], [facility] - [address] Start [...] oldest [Reference Range]: 1 2 3 Height 164 cm (09/06/19 2:28 PM) 164 cm (09/06/19 2:16 PM) 164 cm (08/09/19 3:33 PM) Weight 84.5 kg (07/12/19 2:17 PM) 81.7 kg (05/17/19 1:52 PM) 80.4 kg (04/19/19 1:06 PM) Oxygen Saturation [94-100 %] 97 % (09/06/19 2:28 PM) 98 % (08/09/19 2:43 PM) 98 % (07/12/19 2: PM) Pulse Rate [55-90 bpm] 110 bpm *H* (09/06/19 2:28 PM) 104 bpm *H* (08/09/19 2:43 PM) 110 bpm *H* (07/12/19 2:17 PM) Body Mass Index [18.5-24.99] 31.42 *>HHI* (07/12/19 2:17 PM) 30.38 *>HHI* (05/17/19 1:52 PM) 29.89 *H* (04/19/19 1:06 PM) Blood Pressure [90-138/55-84 mm Hg] 131/88mm Hg (09/06/19 2:28 PM) 147/85mm Hg *H* (08/09/19 2:43 PM) 132/77mm Hg (07/12/19 2:17 PM) Respiratory Rate [16-30 br/min] 18 br/min (09/06/19 2:28 PM) 20 br/min (08/09/19 2:43 PM) 18 br/min (07/12/19 2:17 PM) Temperature [96.8-100.4 DegF] 98.4 DegF (09/06/19 2:28 PM) 97.6 DegF (08/09/19 2:43 PM) 97.9 DegF (07/12/19:17 PM) Liters per Minute 0 L/min (09/06/19 2:28 PM) 0 L/min (08/09/19 2:43 PM) 0 L/min (07/12/19 2:17 PM) Mode of Delivery (Oxygen) Room air (09/06/19 2:28 PM) Room air (08/09/19 2:43 PM) Room air (07/12/19 2:17 PM) Blood pressure sites Arm, left (09/06/19 2:28 PM) Arm, left (08/09/19 2:43 PM) Arm, left (07/12/19 2:17 PM) Temperature Route Temporal (09/06/19 2:28 PM) Temporal (09/06/19 2:16 PM) Temporal (08/09/19 3:33 PM) Dry Weight 84.5 kg (07/12/19 2:17 PM) 81.7 kg (05/17/19 1:52 PM) 80.4 kg (04/19/19 1:06 PM) Weight Obtained Via Standing scale (05/17/19 1:52 PM) Dry Weight Obtained Via Standing scale (05/17/19 1:52 PM) Social History Social History Type Response Smoking Status Current every day frank pruitt entered on: 04/09/17 Sex
--- OUTSIDE RECORDS SUMMARY | 2022-11-01 00:26 | XMS_ITS | Continuity of Care Document ---
Author Name Unknown Organization [facility] Address [address] [place] [address]- Care Team Providers Care Male Infertility Specialist Name Role Phone Leeann Ambrosio MD Primary Care Physician Encounter [facility] [place] Date(s): 02/20/22 - 02/24/[address] [address]- Encounter Diagnosis Chronic depression(Final) - 02/20/22 Personality disorder(Final) - 02/20/22 Suicidal ideation(Final) - 02/20/22 Uncooperative behavior(Final) - 02/20/22 Manipulative behavior(Final) - 02/20/22 Discharge Disposition: A-D/C Home Attending Physician: Trevin [...] re Active Strattera Active Cymbalta Active Hand Casting Sorter 1 Active ZyPREXA 2 Active 1REACTION - FULL BLOWN ASTHMA ATTACK 2Pt states it gives her a paradoxical reaction. Not true allergy Immunizations Given and Recorded Vaccine Date Status Refusal Reason influenza virus vaccine, inactivated 12/24/11 Give n influenza virus vaccine, inactivated 1 04/12/08 Gi jacobo pneumococcal 23-valent vaccine 12/16/08 Given tetanus-diphtheria toxoids (Td) 10/23/07 Given 1Result Comment: (l) [id number] (3 [id number] Medications Adderall 10 mg oral tablet 2 [...] 07/12/20 9:30:00 EDT, Route to Pharmacy Electronically, [facility] [address], Partial fill upon patient request [...] Range]: 1 2 3 Height 155 cm (02/24/22 8:08 AM) 155 cm (02/23/22 10:14 AM) 155 cm (02/22/22 3:00 AM) Weight 79.7 kg (02/24/22 8:08 AM) 79.7 kg (02/23/22 10:14 AM) 79.7 kg (02/22/22 3:00 AM) Oxygen Saturation [94-100 %] 98 % (02/24/22 8:08 AM) 96 % (02/24/22 4:42 AM) 100 % (02/23/22 10:14 AM) Pulse Rate [55-90 bpm] 91 bpm *H* (02/24/22 8:08 AM) 102 bpm *H* (02/24/22 4:42 AM) 103 bpm *H* (02/23/22 10:14 AM) Body Mass Index [18.5-24.99 kg/m2] 33.17 kg/m2 *>HHI* (02/24/22 8:08 AM) 33.17 kg/m2 *>HHI* (02/23/22 10:14 AM) 33.17 kg/m2 *>HHI* (02/22/22 3:00 AM) Blood Pressure [90-138/55-84 mm Hg] 127/89mm Hg (02/24/22 8:08 AM) 116/90mm Hg (02/24/22 4:42 AM) 143/91mm Hg *H* (02/23/22 10:14 AM) Respiratory Rate [16-30 br/min] 18 br/min (02/24/22 8:08 AM) 20 br/min (02/24/22 4:42 AM) 18 br/min (02/23/22 10:14 AM) Temperature [96.8-100.4 DegF] 97.8 DegF (02/24/22 8:08 AM) 98.3 DegF (02/24/22 4:42 AM) 97 DegF (02/23/22 10:14 AM) Mode of Delivery (Oxygen) Room air (02/24/22 8:08 AM) Room air (02/24/22 4:42 AM) Room air (02/23/22 10:14 AM) Blood pressure sites Arm, left (02/24/22 8:08 AM) Arm, left (02/23/22 10:14 AM) Arm, left (02/21/22 10:59 AM) Temperature Route Oral (02/24/22 8:08 AM) Temporal (02/24/22 4:42 AM) Temporal (02/23/22 10:14 AM) Dry Weight 79.7 kg (02/24/22 8:08 AM) 79.7 kg (02/23/22 10:14 AM) 79.7 kg (02/22/22 3:00 AM) Social History Social History Type Response Smoking Status Current every day frank pruitt entered on: 04/09/17 Sex Hospital Progress note * Ines Hairston RN: PERFORM, SIGN, VERIFY, MODIFY, SIGN Event Display: Progress Note Hospital Authored Date: [id number] Patient: TRACY GUTIERREZ Age: 46 years Sex: Female : 1975 Associated Diagnoses: None Author: Ines Hairston RN Findings Pt has outburst r/t news about her having to stay overnight. Hits gage several times with fist requested to stop and yells staff said I could Pt requests something to help her calm down and receives 2 mg IM Ativan with no effect, Pt still yelling and hitting wall walks into the bathroom and walks back out requesting something to help her calm down. Dr. De Souza talks to patient and orders 10 mg IM Zyprexa. Pt receives and ambulates around the henning with 1:1 Shikha. Patient apologizes to staff aboutthe disruption. Sitting in recliner with 1:1 supervision at this time. Per Shikha constant steel layout worker patient has been saying statements like I want to be in a body bag this afternoon. Per curriculum and assessment coordinator patient is denying SI but admits that she would hurt WEIGHTER if they werehere. CC Shikha states that patient admits to lying to staff about self harm feelings, saying I just lied to her . Dr. Eros jean MD to order another dose of Ativan and wrist splint. * Kole Medina RN: PERFORM, SIGN, VERIFY Event Display: Progress Note Hospital Authored Date: [id number] Patient: TRACY GUTIERREZ Age: 46 years Sex: Female : 1975 Associated Diagnoses: None Author: Kole Medina RN Findings Evaluation Report recieved at 1505 on 02/22/22 from [facility]. Patient met in Mental health pod. patient is intermittently walking in halls and sleeping remains calm. Patient is refusing to speak with this RN but agrees to have vitals taken by other [facility] Holden. Continues to be in street clothes. Cell phone and other belongings have been secured. 02/09 steel layout worker remains in place. Patient continues to refuse Covid swab. Continues as a bed search at this time. * Rachel Erwin RN: PERFORM, SIGN, VERIFY Event Display: Progress Note Hospital Authored Date: [id number] Patient: TRACY GUTIERREZ Age: 46 years Sex: Female : 1975 Associated Diagnoses: None Author: Rachel Erwin RN Findings Narrative/Incidental Patient awoke from nap asking for her phone. This technical report writer spoke to her and told her that per policy she could not have it. She immediately began to yell and threaten staff. Requested mouth/denture care from her bag and was told that she may have it but we needed to be sure that her phone was not in her bag before she was given it. Her bag was searched and then given to patient. She immediately began to yell at this technical report writer stating I pack my bag a certain way and you messed it up, if you ever go through my bag again I will slap the shit out of you . Was told by staff that she could not threatenstaff and she stated I dont give a fuck get the hell away from me . Asked for a landline phone and was told that if she could be calm for 5 minutes we could supply her with one. She stated dont talk to me bitch I will beat the shit out of you . This technical report writer told Gemma that she could not threaten staff and she stated thats not a threat thats a promise . Security was at bedside during incident andbegan to de escalate situation. She went to the bathroom and was calm and quiet for a few minutes so she was given a landline phone and the number to one of her support persons. Security talked with her for a while and she began to calm down, asked for hot chocolate and PRN IM anxiety medications which were supplied to her. Staff sitters switched out at 3 am to one that she has a good rapport with and is now requesting hospital bed due to hx of back issues. Will continue to monitor.... Note * Timothy GARCIA, Trevin Munzo: PERFORM Event Display: Patient Education Leaflets Authored Date: [id number] Depression ?? [id number] Depression Depression is a very common mental [...] medicines you take. This includes prescription and [id number]-qzw-[id number] medicines. It includes vitamins and herbal supplements. [...] An online chat option is also available. [employer] is free and available 01/09. 988 counselors [...] help ?? Last Reviewed Date: 2021 ?? [id number] [employer]. All rights reserved. This information is not intended as a substitute for professional medical care. Always follow your healthcare professional's instructions. ?? Patient Care team information Care Team Personnel Name: Leeann Ambrosio MD Position: [facility] Physician (General Medicine) Member Role: PCP Address: Address: [address] [place] [address]- Name: Geovanna Vu MD Position: [facility] SOIL SAMPLER Member Role: Lifetime SOIL SAMPLER Physician Address: Address: [address] [place] [address]- Name: Saige Lacey RN Position: [facility] RN Member Role: Primary Care Nurse Name: Brenda Bear DO Position: [facility] SOIL SAMPLER MD Member Role: Lifetime SOIL SAMPLER Physician Address: Address: [address] [place] [address] [address]- Name: Servando Muñoz RN Position: [facility] ED RN W/OE and Tasks Member Role: Patient Care Provider Name: Trevin Aguirre MD Position: [facility] ED Medicine MD Member Role: Admitting Physician Address: Address: [address] [place] [address] [place] [address]- Care Team Related Persons Name: ANJU PADGETT Address: home [address] [place] [address] Name: SHIRLEY HU Address: home [address] [place] [address]
--- OUTSIDE RECORDS SUMMARY | 2022-11-01 00:26 | XMS_ITS | Continuity of Care Document ---
Author Name Unknown Organization [facility] Address [address] [place] [address]- Care Team Providers Care Automobile Rental Agent Name Role Phone Leeann Ambrosio MD Primary Care Physician Encounter [facility] [place] Date(s): 10/22/22 - 10/23/[address] [address]- Encounter Diagnosis Suicidal ideation(Final) - 10/22/22 Personality disorder(Final) - 10/22/22 Discharge Disposition: Transfer to Psych Facility Attending Physician: Damaris Rg MD Admitting Physician: Damaris Rg MD Referring Physician: Not on Staff, Referring MD Allergies, Adverse Reactions, Alerts Substance Reaction Severity Status tramadol Active Risperdal Active ketamine Active hydrOXYzine Active trazodone-like drugs Active Singulair Active Imitrex Moderate Active Haldol akathesia Active Latex Active Strattera Active Seafood Throat, Hands, Feet swell Persistent Candice re Active Cymbalta Active Hand Cnc Grinder 1 Active ZyPREXA 2 Active Paxlovid Severe Active 1REACTION - FULL BLOWN ASTHMA ATTACK 2Pt states it gives her a paradoxical reaction. Not true allergy Immunizations Given and Recorded Vaccine Date Status Refusal Reason influenza virus vaccine, inactivated 12/24/11 Give n influenza virus vaccine, inactivated 1 04/12/08 Gi jacobo pneumococcal 23-valent vaccine 12/16/08 Given tetanus-diphtheria toxoids (Td) 10/23/07 Given 1Result Comment: (l) [id number] 3) [id number] Medications carbidopa-levodopa 25 mg-100 mg oral tablet [...] opioid drug. Start Date: 10/03/22 Status: Ordered Toradol Inj 30 mg, Injection, Intramuscular, Once, STAT, 10/23/22 0:21:00 EDT, Stop date 10/23/22 0:21:00 EDT Start Date: 10/23/22 Stop Date: 10/23/22 Status: Completed Zyrtec 10 mg oral tablet [...] Exam Date Time Procedure Performing Provider Status 10/23/22 1:37 PM Hand Min 3 Views Left Shu Colunga (Verified) Notes: (Hand Min 3 Views Left) Reason For Exam: with Pain;Trauma RESULT: Hand Min 3 Views Left Hand Min 3 Views Left Hx of Present Illness: Trauma; with Pain; Clinical Question(s): Fracture COMPARISON: 02/26/2022. FINDINGS: No fractures or bone lesions. No arthritic changes. Normal soft tissues. IMPRESSION: Normal. I have personally reviewed the images and I agree with this report. WSN: [id number] Ordering Physician: Damaris Rg Dictated By: Abelino Hernandez MD Dictated Date/Time: 10/23/22 2:14 pm Reviewed By: Kasi Abreu MD, V Signed By: Kasi Abreu MD, V Signed Date/Time: 10/23/22 2:19 pm Transcribed By: BARB Transcribed Date/Time: 10/23/22 2:13 pm Vital Signs Most recent to oldest [Reference Range]: 1 2 3 Height 146 cm (10/23/22 10:59 AM) 146 cm (10/22/22 5:51 PM) Weight 86 kg (10/23/22 10:59 AM) 86 kg (10/22/22 5:51 PM) Oxygen Saturation [94-100 %] 98 % (10/23/22 10:59 AM) 97 % (10/23/22 5:44 AM) Pulse Rate [55-90 bpm] 76 bpm (10/23/22 10:59 AM) 69 bpm (10/23/22 5:44 AM) Body Mass Index [18.5-24.99 kg/m2] 40.35 kg/m2 *>HHI* (10/23/22 10:59 AM) Blood Pressure [90-138/55-84 mm Hg] 119/102mm Hg (10/23/22 10:59 AM) 121/73mm Hg (10/23/22 5:44 AM) Respiratory Rate [16-30 br/min] 18 br/min (10/23/22 10:59 AM) 18 br/min (10/23/22 10:56 AM) 16 br/min (10/23/22 5:44 AM) Temperature [96.8-100.4 DegF] 97.5 DegF (10/23/22 10:59 AM) 97.3 DegF (10/23/22 5:44 AM) Mode of Delivery (Oxygen) Room air (10/23/22 10:59 AM) Room air (10/23/22 5:44 AM) Blood pressure sites Arm, left (10/23/22 10:59 AM) Temperature Route Temporal (10/23/22 10:59 AM) Temporal (10/23/22 5:44 AM) Dry Weight 86 kg (10/23/22 10:59 AM) 86 kg (10/22/22 5:51 PM) Social History Social History Type Response Smoking Status Current every day sm oker entered on: 04/09/17 Sex Patient Care team information Care Team Personnel Name: Leeann Ambrosio MD Position: [facility] Physician - Primary Care Member Role: PCP Address: Address: [address] [place] [address]- Name: Geovanna Vu MD Position: [facility] GEOLOGICAL SPECIALIST MD Member Role: Lifetime GEOLOGICAL SPECIALIST Physician Address: Address: [address] [place] [address] Name: Saige Lacey RN Position: [facility] RN Member Role: Primary Care Nurse Name: Brenda Bear DO Position: [facility] GEOLOGICAL SPECIALIST MD Member Role: Lifetime GEOLOGICAL SPECIALIST Physician Address: Address: [address] [place] [address] Name: Melissa Walker RN Position: [facility] ED RN W/OE and Tasks Member Role: Patient Care Provider Name: Damaris Rg MD Position: [facility] ED Medicine MD Member Role: Admitting Physician Address: Address: [address] [place] [address] Care Team Related Persons Name: ANJU PADGETT Address: home [address] [place] [address] Name: SHIRLEY HU Address: home [address] [place] [address]
--- NOTE | 2022-11-01 00:31 | MHC.EDTECH ---
pt arrived to ed pod very somnolent. labs to be drawn when pt more awake per hanna harper
[2022-11-01 02:50] LABS: Appearance Urine Clear; Color Urine Yellow; Glucose Urine UA Negative (Negative); Leukocyte Esterase Urine Negative (Negative); Nitrite Urine Negative (Negative); PH 5.5 (5.0-9.0); Specific Gravity - Urine <= 1.005 (1.005-1.025); Urine Blood Negative (Negative); Urine Ketones Negative (Negative); Urine Protein Negative (Neg-Trace)
[2022-11-01 02:57] LABS: Amphetamine Screen Urine Not Detected (Not Detect); Barbiturates, Urine Not Detected (Not Detect); Benzodiazepines Screen Urine Not Detected (Not Detect); Cannabinoid Screen Urine Not Detected (Not Detect); Cocaine Screen Urine Not Detected (Not Detect); Fentanyl, urine Not Detected (Not Detect); Opiate Screen Urine Not Detected (Not Detect); Phencyclidine Screen Urine Not Detected (Not Detect)
[2022-11-01] MEDS: Acetaminophen 325 MG TABLET 975 MG PO (06:04)
--- NOTE | 2022-11-01 07:27 | PHA.MEDREC ---
Pharmacy Consult ? Medication Reconciliation Pharmacy has completed the medication reconciliation. Reviewed med rec done by nursing
--- NOTE | 2022-11-01 08:56 | PC.NURSE ---
asked tech to wait d/t patients history of aggression
[2022-11-01] MEDS: Ibuprofen 800 MG TABLET PO (09:04)
[2022-11-01 09:19] LABS: MANUAL DIFF FLAG NO
[2022-11-01 09:22] LABS: Basophils Percent Auto 0.5 % (0-2); Eosinophils Percent Auto 0.3 % (0-4); Hematocrit 42.8 % (37.0-47.0); Hemoglobin 14.3 g/dl (12.0-16.0); Imm Gran Abs Auto 0.04 X10*3/uL (0.00-0.03); Imm Gran Pct Auto 0.5 % (0.0-0.4); Lymphocytes Absolute Auto 1.6 X10*3/uL (1.2-4.9); Lymphocytes Percent Auto 21.1 % (20-40); Mean Corpuscular HGB Conc 33.4 g/dl (31.0-35.0); Mean Corpuscular Hemoglobin 30.4 pg (27.0-33.0); Mean Corpuscular Volume 91.1 fL (80.0-98.0); Mean Platelet Volume 9.5 fL (9.4-12.3); Monocytes Absolute Auto 0.5 X10*3/uL (0.1-1.2); Neutrophils Absolute Auto 5.5 x10*3/uL (2.0-8.3); Neutrophils Percent Auto 71.6 % (45-73); Platelet Count 219 X10*3/uL (160-400); Red Cell Distribution Width 12.1 % (11.0-16.0); White Blood Count 7.7 X10*3/uL (4.8-10.8)
[2022-11-01 09:32] LABS: COVID-19 Test Negative (Negative); IDNOW Serial# BCCEAD1C
[2022-11-01 09:40] LABS: Alanine Aminotransferase 27 U/L (0-31); Alkaline Phosphatase 84 U/L (39-117); Anion Gap 12 (12-20); Aspartate Amino Transferase 17 U/L (5-31); Bilirubin Total 0.4 mg/dL (0.0-1.0); Blood Urea Nitrogen 11 mg/dL (9-16); Calcium 8.5 mg/dL (8.4-10.2); Carbon Dioxide 22 mmol/L (22-29); Chloride 110 mmol/L (96-108); Creatinine Clr Calc Pharmacy 98.5; Estimated Glomerular Filt Rate > 60; Ethanol < 10 mg/dL; Glucose Random 108 mg/dL (60-115); Potassium 4.2 mmol/L (3.3-5.1); Sodium 140 mmol/L (135-145); Total Protein 6.4 g/dL (6.5-8.0)
--- NOTE | 2022-11-01 10:17 | MHC.CARE ---
Pt was found IPLOC by AYDEN Mendoza 10/31 at 3:25pm. Pt was accepted to [facility] for admission on 10/31. By report Pt was given a medication restraint [facility] due to [facility]ation. Pt was subsequently transported to [facility]. CARE Team briefly met with Pt who is not requesting to be discharged home. Pt is not endorsing current SI/HI/AH/VH. Per crisis review Pts has experiences chronic mental health complaints. Pt has historical dx of MDD. Pt has ACCS services out of [facility] ([phone]). Case reviewed with Dr. Hdez Plan for psychiatry to be consult regarding if Pt meets critera for 12B or is appropriate for discharge home with current providers.
[2022-11-01] MEDS: LORazepam 1 MG TABLET 2 MG PO (11:38)
--- NOTE | 2022-11-01 12:47 | P.CNPS_ITS ---
History of Present Illness Date of Service: t Chief Complaint: SI Reason for Consult: Assessment of disposition Sources of Information: patient interviewed, chart reviewed and crisis/core team assessment reviewed Additional Sources of Information: Collateral information from care team members. That knows the patient for years HPI Narrative: The patient is a 47-year-old female with a past history of borderline personality disorder with several prior admissions into the hospital for suicidality. At baseline the patient is chronically suicidal with a sporadic self-harming behavior but with no life threatening attempts. The patient was assessed by crisis a few days ago and she was referred to [facility] but before going to the hospital, while she was going to be transported the patient was medicated and she came extremely sedated. When she arrived to [facility], the patient was refused because she was over-sedated. When she came to the emergency room the patient was pleasant, cooperative, with good eye contact and future oriented. The patient denies active suicidal ideation and she was able to contract for safety. She stated that she was having a hard time a few days ago but now she has a safety plan. She really has several providers in the community to that follows her. She adamantly denies psychotic symptoms, mood lability or suicidal ideation. The case was discussed with the care team and they were in agreement for discharge with the providers in the community as usual. Past Psychiatric History: Several prior admissions into the hospital for suicidality and borderline personality disorder. Typically, the patient does not benefit from inpatient level of care. Diagnostics Vital Signs (24Hr): Vital Signs - 24 hr 10/31/22 23:55 Temperature 97.6 F Pulse Rate 87 Respiratory Rate 17 Blood Pressure 119/92 H Pulse Oximetry 95 Oxygen Delivery Method Room Air BMI result Body Mass Index 33.3 Labs 11/01/22 09:12 11/01/22 09:12 Labs: Laboratory Results - last 48 hr 11/01/22 11/01/22 02:38 09:12 WBC 7.7 RBC 4.70 Hgb 14.3 Hct 42.8 MCV 91.1 MCH 30.4 MCHC 33.4 RDW 12.1 Plt Count 219 MPV 9.5 Immature Gran % (Auto) 0.5 H Neut % (Auto) 71.6 Lymph % (Auto) 21.1 [place]mer % (Auto) 6.0 Eos % (Auto) 0.3 Baso % (Auto) 0.5 Lymph # (Auto) 1.6 Parmer # (Auto) 0.5 Eos # (Auto) 0.0 Baso # (Auto) 0.0 Abs Immat Gran (auto) 0.04 H Absolute Neuts (auto) 5.5 Absolute Nucleated RBC 0.000 Nucleated RBC % (auto) 0.0 Sodium 140 Potassium 4.2 Chloride 110 H Carbon Dioxide 22 Anion Gap 12 BUN 11 Creatinine 0.69 Estim Creat Clear Calc 98.5 Estimated GFR > 60 Random Glucose 108 Calcium 8.5 Total Bilirubin 0.4 AST 17 ALT 27 Alkaline Phosphatase 84 Total Protein 6.4 L Albumin 4.0 Urine Color Yellow Urine Appearance Clear Urine pH 5.5 Ur Specific [place] <= 1.005 Urine Protein Negative Urine Glucose (UA) Negative Urine Ketones Negative Urine Blood Negative Urine Nitrite Negative Ur Leukocyte Esterase Negative Urine Opiates Screen Not Detected Urine Fentanyl Screen Not Detected Ur Barbiturates Screen Not Detected Ur Phencyclidine Scrn Not Detected Ur Amphetamines Screen Not Detected U Benzodiazepines Scrn Not Detected Urine Cocaine Screen Not Detected U Marijuana (THC) Screen Not Detected Ethyl Alcohol < 10 COVID-19 (VANDANA) Negative COVID-19 Clin Com See Note Mental Status Exam Mental Status Exam Patient Appearance: Well Grooomed and Appropriate Patient Orientation: Person, Place, Time and Situation Level of Consciousness: Awake and Appropriate Patient Behavior: Appropriate and Cooperative Mood Description: Calm and Appropriate Affect Description: Calm Patient Cognition Impaired: No Ability to Follow Directions: Excellent Speech Pattern: Clear and Appropriate Hallucinations: None Delusions: Not Present Thought Process: Goal Oriented and Linear Thought Content: positive for Circumstantial Judgement: Fair (Improved) Medications Medications Current Medications Albuterol Sulfate (Albuterol Sulfate 90 Mcg 8 Gm Inhaler) 2 puff INHALE Q4H PRN PRN Reason: dyspnea Carbidopa/Levodopa (Carbidopa/Levodopa 25/100 Tablet) 1 tab PO BID [facility] Last Admin: 11/01/22 09:07 Dose: Not Given Ibuprofen (Ibuprofen 800 Mg Tablet) 800 mg PO Q8H [facility] Last Admin: 11/01/22 09:04 Dose: 800 mg Lorazepam (Lorazepam 1 Mg Tablet) 2 mg PO DAILY PRN PRN Reason: anxiety Last Admin: 11/01/22 11:38 Dose: 2 mg Nicotine Polacrilex (Nicotine Polacrilex 2 Mg Gum) 2 mg BUCCAL Q2H PRN PRN Reason: Nicotine withdrawal Ondansetron HCl (Ondansetron Odt 8 Mg Tab.Rapdis) 8 mg TRANSLINGU TID PRN PRN Reason: Nausea And Vomiting Sucralfate (Sucralfate 1 Gm Tablet) 1 gm PO QID TK Last Admin: 11/01/22 12:45 Dose: Not Given Allergies Allergies Allergy/AdvReac Type Severity Reaction Status Date / Time atomoxetine Allergy Unknown Verified 08/10/19 00:00 duloxetine [Cymbalta] Allergy Unknown Verified 08/10/19 00:00 gabapentin Allergy Unknown Verified 08/10/19 00:00 haloperidol [Haldol] Allergy Unknown Verified 08/10/19 00:00 latex [LATEX] Allergy Unknown RASH Unverified 10/27/19 18:15 montelukast [Singulair] Allergy Unknown Verified 08/10/19 00:00 olanzapine [Zyprexa] Allergy Unknown Verified 08/10/19 00:00 risperidone [From RISPERDAL] Allergy Unknown UNKNOWN Unverified 10/27/19 18:15 shellfish derived Allergy Unknown UNKNOWN Unverified 10/27/19 18:15 sumatriptan [From IMITREX] Allergy Unknown UNKNOWN Unverified 10/27/19 18:15 tramadol Allergy Unknown Verified 08/10/19 00:00 trazodone Allergy Unknown Verified 08/10/19 00:00 Benadryl Allergy Unknown Uncoded 08/10/19 00:00 From CYMBALTA Allergy Unknown UNKNOWN Uncoded 10/27/19 18:15 From IMITREX Allergy Unknown UNKNOWN Uncoded 10/27/19 18:15 SEAFOOD Allergy Unknown UNKNOWN Uncoded 10/27/19 18:15 Assessment & Plan Assessment & Plan (1) Borderline personality disorder: Status: Acute Code(s): F60.3 - Borderline personality disorder (2) MDD (major depressive disorder): Status: Acute Code(s): F32.9 - Major depressive disorder, single episode, unspecified (3) Post traumatic stress disorder: Status: Acute Code(s): F43.10 - Post-traumatic stress disorder, unspecified Plan The patient is a 47-year-old female with a past history of borderline personality disorder, major depressive disorder and PTSD who was admitted to the emergency room after [facility] refused her because she was over- sedated. The patient is chronically suicidal, with chronic self-harming behavior but never life threatening at times. She has several admissions into the hospital with poor outcome since she does not benefit from inpatient level of care. The present consult was ordered to assess disposition. Plan 1. At this moment the patient is able to contract for safety she does not have inpatient level of care criteria. 2. Referred to [facility] emergency department for disposition and aftercare. Total time managing care of this patient today __45__ minutes. Patient educated on: diagnosis Guardian/Caregiver educated on: diagnosis Informed Consent: understands
[2022-11-01] MEDS: Nicotine Polacrilex 2 MG GUM BUCCAL (13:37)
== END 2022-11-01 14:21 | disposition home or self-care (01) ==
PROVIDERS: Emergency Medicine; Emergency Provider Emergency Medicine Emergency Medical Services
DX: R40.0 Somnolence (principal); F60.3 Borderline personality disorder; F32.9 Major depressive disorder, single episode, unspecified; F43.10 Post-traumatic stress disorder, unspecified; Z79.899 Other long term (current) drug therapy; Z20.822 Contact with and (suspected) exposure to COVID-19
CPT/HCPCS: 36415; 80053; 80307; 81003; 85025; 87635; 99284; 99285

== ENCOUNTER → 2022-11-01 00:18 | Outpatient (BNV) | payer MEDICARE, MEDICAID, SELFPAY | PROVIDERS: Emergency Provider Emergency Medicine Emergency Medical Services; Visit Provider Psychiatry & Neurology Psychiatry | DX: F60.3 Borderline personality disorder (principal); F32.9 Major depressive disorder, single episode, unspecified; F43.10 Post-traumatic stress disorder, unspecified | CPT/HCPCS: 99283 ==